=== PATIENT | male | born 1960 | race African-American/Black ===

== ENCOUNTER 2016-09-19 19:46 | Emergency (ER) | payer MEDICARE, OTHER ==
[~2016-09-19] VITALS: Ht 170.2 cm; Wt 70.8 kg
[2016-09-19] MEDS ORDERED: NORCO 10-325 T1 EACH ORAL (20:18)
[2016-09-19] MEDS ORDERED: SOMA350 MG PO (20:18)
[2016-09-19] MEDS ORDERED: AMLODIPINE BESY10 MG ORAL (20:18)
[2016-09-19] MEDS ORDERED: GABAPENTIN300 MG ORAL (20:18)
[2016-09-19] MEDS ORDERED: HYDROCHLOROTHIA25 MG ORAL (20:18)
[2016-09-19] MEDS ORDERED: ASPIR 8181 MG ORAL (20:18)
[2016-09-19] MEDS ORDERED: BACTRIM DS TAB1 EAC1 ORAL (21:13)
--- NOTE | 2016-09-19 21:14 | Emergency Room Report ---
History of Present Illness General Chief Complaint: Male Urogenital Problems Source: Patient Present Illness HPI Is a 56-year-old male with a history of spinal cord surgery. He has neuropathy and hard time walking. He presents with an abscess to the rectal area for the last 3-4 days. He fell is spreading to his scrotal area. No drainage. No fever chills but no nausea no vomiting. Pain is 7/10. Allergies: Coded Allergies: No Known Allergies (Unverified , 11/16/14) Patient History Past Medical History: see triage record, old chart reviewed Past Surgical History: other Pertinent Family History: none Social History: Denies: smoking Immunizations: other Reviewed Nursing Documentation: PMH: Agreed, PSxH: Agreed Nursing Documentation-PMH Hx Hypertension: Yes Review of Systems Eye: Denies: blurred vision, eye pain ENT: Denies: ear pain, nose congestion, throat swelling Respiratory: Denies: cough, shortness of breath Cardiovascular: Denies: chest pain, palpitations Gastrointestinal: Denies: abdominal pain, diarrhea, nausea, vomiting Musculoskeletal: Denies: back pain, joint pain Skin: Denies: rash Neurological: Denies: headache, numbness Endocrine: Denies: increased thirst, increased urine Hematologic/Lymphatic: Denies: easy bruising All Other Systems: negative except mentioned in HPI Physical Exam Vital Signs Date Time Temp Pulse Resp B/P Pulse Ox O2 Delivery O2 Flow Rate FiO2 09/19/16 20:12 98.8 98 18 143/89 95 Room Air vitals unremarkable Sp02 EP Interpretation: reviewed, normal General Appearance: well appearing, no apparent distress, alert Head: normocephalic, atraumatic Eyes: bilateral eye EOMI, bilateral eye PERRL ENT: hearing grossly normal, normal pharynx Neck: full range of motion, supple, no meningismus Respiratory: chest non-tender, lungs clear, normal breath sounds Cardiovascular #1: regular rate, rhythm, no murmur Gastrointestinal: normal bowel sounds, non tender, no mass, no organomegaly, no bruit, non-distended Genitourinary: other - Fluctuant area of 3 cm to the peroneal area of the left Buttock. Central necrotic area with minimal drainage. Musculoskeletal: back normal, other - Patient uses a walker Psychiatric: mood/affect normal Skin: warm/dry Procedures Incision and Drainage Incision and Drainage : Consent: Verbal Site: Buttock Blade Size: 11 I & D Procedure: betadine prep Wound Location: other - Buttock Anesthesia: 1% Lidocaine Volume Anesthetic (ccs): 2 Patient Tolerated: Well Complications: None Progress Area clean with Betadine. Local said at 1% lidocaine. An 81 cm incision and there was copious amount of purulent discharge. Wound irrigated. Patient felt better. We'll discharge home. Medical Decision Making Diagnostic Impression: Primary Impression: Perianal abscess ER Course Patient with perianal abscess. No rectal involvement. We'll discharge home. Last Vital Signs Date Time Temp Pulse Resp B/P Pulse Ox O2 Delivery O2 Flow Rate FiO2 09/19/16 20:12 98.8 98 18 143/89 95 Room Air Status: improved Disposition: HOME, SELF-CARE Condition: Stable Scripts Trimethoprim/Sulfamethoxazole 160/800* (BACTRIM DS TABLET*) 1 Each Tablet 1 TAB ORAL Q12H, #14 TAB 0 Refills Prov: LEIDA MILLER M.D. 09/19/16 Additional Instructions: followup with your DrAnthony in 2 days for recheck. Return if symptoms worsen> LEIDA MILLER M.D. Sep 19, 2016 21:14
[2016-09-19 21:20] VITALS: BP 143/89
== END 2016-09-19 21:20 | disposition home or self-care (01) ==
LOC: EMR 21:15
DX: K61.0 Anal abscess (principal); G62.9 Polyneuropathy, unspecified; I10 Essential (primary) hypertension
CPT/HCPCS: 10060

== ENCOUNTER 2018-01-08 21:33 | Inpatient (IN) | payer MEDICARE, OTHER ==
[~2018-01-08] VITALS: Ht 165.1 cm; Wt 77.1 kg
[~2018-01-08 21:33] MED LIST: AMLODIPINE BESY10 MG ORAL; ASPIR 8181 MG ORAL; BACTRIM DS TAB1 EAC1 ORAL; GABAPENTIN300 MG ORAL; HYDROCHLOROTHIA25 MG ORAL; NORCO 10-325 T1 EACH ORAL; SOMA350 MG PO
[2018-01-08] MEDS ORDERED: Sodium Chloride 500ML 500 ML IV ONE (21:48)
--- NOTE | 2018-01-08 21:50 | Emergency Room Report ---
History of Present Illness General Chief Complaint: Chest Pain Source: Patient Present Illness HPI Patient present with complaints of chest pain right-sided Ongoing for the past one to 2 days denies any pleurisy Patient reports that there is some change with movement and turning to his right Pain is 6 out of 10 heavy and sharp Patient has previous neck surgery and has progressive trigger finger on the right side and neuropathy taking Neurontin Denies any vomiting denies any diarrhea Allergies: Coded Allergies: No Known Allergies (Unverified , 11/16/14) Patient History Past Medical History: see triage record Pertinent Family History: none Reviewed Nursing Documentation: PMH: Agreed; PSxH: Agreed Nursing Documentation-PMH Hx Hypertension: Yes Hx Neurological Problems: Yes Review of Systems All Other Systems: negative except mentioned in HPI Physical Exam Vital Signs Date Time Temp Pulse Resp B/P (MAP) Pulse Ox O2 Delivery O2 Flow Rate FiO2 01/08/18 21:24 98.8 105 18 134/83 97 Room Air Sp02 EP Interpretation: reviewed, normal General Appearance: well appearing, no apparent distress Head: normocephalic, atraumatic Eyes: bilateral eye PERRL, bilateral eye EOMI ENT: hearing grossly normal, TMs + canals normal, uvula midline, other - Poor dentition Neck: full range of motion, supple, no meningismus, no bony tend Respiratory: lungs clear, normal breath sounds, no rhonchi, no respiratory distress, no retraction, no accessory muscle use Cardiovascular #1: normal peripheral pulses, regular rate, rhythm, no edema, no gallop, no JVD, no murmur Gastrointestinal: normal bowel sounds, non tender, soft, no mass, no organomegaly, non-distended, no guarding, no hernia, no pulsatile mass, no rebound Genitourinary: no CVA tenderness Musculoskeletal: normal inspection Neurologic: oriented x3, responsive, market investigator III-XII nml as tested, motor strength/ tone normal, sensory intact Psychiatric: mood/affect normal Skin: normal color, no rash, warm/dry, palpation normal Lymphatic: normal inspection, no adenopathy Medical Decision Making Diagnostic Impression: Primary Impression: ACS (acute coronary syndrome) Additional Impression: Pneumonia ER Course Patient is a fairly complex patient with multiple differential to consideration including but not limited to cardiac cardiopulmonary and vascular emergencies Then the patient's workup x-ray imaging shows bilateral infiltrates White blood cell count is elevated Patient's kidney function is also worsened Patient had blood cultures and lactic acid added broad-spectrum antibiotic initiated and patient admitted for further care Labs Test 01/08/18 22:10 01/08/18 23:00 White Blood Count 20.0 K/UL (4.8-10.8) Red Blood Count 2.83 M/UL (4.70-6.10) Hemoglobin 8.9 G/DL (14.2-18.0) Hematocrit 26.7 % (42.0-52.0) Mean Corpuscular Volume 94 FL (80-99) Mean Corpuscular Hemoglobin 31.3 PG (27.0-31.0) Mean Corpuscular Hemoglobin Concent 33.2 G/DL (32.0-36.0) Red Cell Distribution Width 13.2 % (11.6-14.8) Platelet Count 214 K/UL (150-450) Mean Platelet Volume 5.3 FL (6.5-10.1) Neutrophils (%) (Auto) % (45.0-75.0) Lymphocytes (%) (Auto) % (20.0-45.0) Monocytes (%) (Auto) % (1.0-10.0) Eosinophils (%) (Auto) % (0.0-3.0) Basophils (%) (Auto) % (0.0-2.0) Differential Total Cells Counted 100 Neutrophils % (Manual) 87 % (45-75) Lymphocytes % (Manual) 9 % (20-45) Monocytes % (Manual) 2 % (1-10) Eosinophils % (Manual) 2 % (0-3) Basophils % (Manual) 0 % (0-2) Band Neutrophils 0 % (0-8) Platelet Estimate Adequate Platelet Morphology Normal Sodium Level 142 MMOL/L (136-145) Potassium Level 2.2 MMOL/L (3.5-5.1) Chloride Level 109 MMOL/L (98-107) Carbon Dioxide Level 23 MMOL/L (21-32) Anion Gap 10 mmol/L (5-15) Blood Urea Nitrogen 7 mg/dL (7-18) Creatinine 0.9 MG/DL (0.55-1.30) Estimat Glomerular Filtration Rate > 60 mL/min (>60) Glucose Level 94 MG/DL (74-106) Calcium Level 6.4 MG/DL (8.5-10.1) Total Bilirubin 1.7 MG/DL (0.2-1.0) Direct Bilirubin 1.1 MG/DL (0.0-0.3) Aspartate Amino Transf (AST/SGOT) 97 U/L (15-37) Alanine Aminotransferase (ALT/SGPT) 28 U/L (12-78) Alkaline Phosphatase 129 U/L (46-116) Total Creatine Kinase 75 U/L (26-308) Creatine Kinase MB < 0.5 NG/ML (0.0-3.6) Creatine Kinase MB Relative Index 0.6 Troponin I 0.000 ng/mL (0.000-0.056) Total Protein 7.0 G/DL (6.4-8.2) Albumin 1.2 G/DL (3.4-5.0) Globulin 5.8 g/dL Albumin/Globulin Ratio 0.2 (1.0-2.7) Lipase 251 U/L (73-393) Lactic Acid Level 2.20 mmol/L (0.4-2.0) Rhythm Strip Diag. Results EP Interpretation: yes Rate: 112 Rhythm: no PVC's, no ectopy, other - Sinus tach Chest X-Ray Diagnostic Results Chest X-Ray Diagnostic Results : Chest X-Ray Ordered: Yes # of Views/Limited/Complete: 1 View Indication: Chest Pain EP Interpretation: Yes Interpretation: no effusion, no pneumothorax, other - Bilateral infiltrates Impression: Other - Bilateral infiltrates Electronically Signed by: Elvira Emerson DO Last Vital Signs Date Time Temp Pulse Resp B/P (MAP) Pulse Ox O2 Delivery O2 Flow Rate FiO2 01/08/18 21:24 98.8 105 18 134/83 97 Room Air Status: improved Disposition: ADMITTED INPATIENT Condition: Serious Elvira Emerson DO Jan 08, 2018 21:50
[2018-01-08 22:00] VITALS: BP 119/67
[2018-01-08] MEDS ORDERED: Morphine Sulfate 4mg/ml Inj (IV/IM USE ONLY) IVP ONE (22:00)
[2018-01-08] MEDS ORDERED: DiphenhydrAMINE 50mg/ml Inj IVP ONE (22:00)
--- NOTE | 2018-01-08 22:08 | Diagnostic Imaging Report ---
EXAM: XR Chest, 1 View CLINICAL HISTORY: CP TECHNIQUE: Frontal view of the chest. COMPARISON: No relevant prior studies available. FINDINGS: Lungs: Mild bibasilar atelectasis/infiltrates. Pleural space: Unremarkable. No pneumothorax. Heart: No cardiomegaly. Mediastinum: Large mediastinal contour. Bones/joints: No acute fracture. IMPRESSION: Mild bibasilar atelectasis/infiltrates.
[2018-01-08 22:37] LABS: HEMATOCRIT 26.7 % (42.0-52.0); HEMOGLOBIN 8.9 G/DL (14.2-18.0); MEAN CORPUSCULAR VOLUME 94 FL (80-99); PLATELET COUNT 214 K/UL (150-450); RED BLOOD COUNT 2.83 M/UL (4.70-6.10); RED CELL DISTRIBUTION WIDTH 13.2 % (11.6-14.8)
[2018-01-08] MEDS ORDERED: NS 1000ml 2,200 ML IVLG ONE (22:45)
[2018-01-08 22:51] LABS: ALANINE AMINOTRANSFERASE 28 U/L (12-78); ALBUMIN 1.2 G/DL (3.4-5.0); ALBUMIN/GLOBULIN RATIO 0.2 (1.0-2.7); ALKALINE PHOSPHATASE 129 U/L (46-116); ANION GAP 10 mmol/L (5-15); ASPARTATE AMINO TRANSFERASE 97 U/L (15-37); BILIRUBIN,TOTAL 1.7 MG/DL (0.2-1.0); BLOOD UREA NITROGEN 7 mg/dL (7-18); CALCIUM 6.4 MG/DL (8.5-10.1); CARBON DIOXIDE 23 MMOL/L (21-32); CHLORIDE 109 MMOL/L (98-107); CKMB < 0.5 NG/ML (0.0-3.6); CREATINE KINASE 75 U/L (26-308); CREATININE 0.9 MG/DL (0.55-1.30); SODIUM 142 MMOL/L (136-145)
[2018-01-08 22:53] LABS: BILIRUBIN,DIRECT 1.1 MG/DL (0.0-0.3); POTASSIUM 2.2 MMOL/L (3.5-5.1)
[2018-01-09] VITALS (7 sets, daily range): BP systolic 105–120; BP diastolic 64–77
[2018-01-09] MEDS ORDERED: Albuterol/Ipratropium 3ml neb HHN PRN (02:45)
[2018-01-09] MEDS: Azithromycin 250mg tab ORAL SCH (05:56)
[2018-01-09] MEDS: Heparin 5000 units/ml inj SUBQ SCH ×3 (05:57→21:07)
[2018-01-09] MEDS ORDERED: GABAPENTIN600 MG ORAL (06:46)
[2018-01-09 07:21] LABS: ANION GAP 7 mmol/L (5-15); BLOOD UREA NITROGEN 8 mg/dL (7-18); CARBON DIOXIDE 26 MMOL/L (21-32); CHLORIDE 100 MMOL/L (98-107); CREATININE 1.2 MG/DL (0.55-1.30); POTASSIUM 3.7 MMOL/L (3.5-5.1); SODIUM 133 MMOL/L (136-145)
[2018-01-09 07:35] LABS: HEMOGLOBIN 9.1 G/DL (14.2-18.0); MEAN CORPUSCULAR VOLUME 94 FL (80-99); PLATELET COUNT 213 K/UL (150-450); RED BLOOD COUNT 2.99 M/UL (4.70-6.10); RED CELL DISTRIBUTION WIDTH 13.9 % (11.6-14.8)
[2018-01-09 07:58] LABS: WHITE BLOOD COUNT 26.6 K/UL (4.8-10.8)
--- NOTE | 2018-01-09 08:04 | History & Physical ---
History and Physical History & Physicial HISTORY AND PHYSICAL HPI Patient present with complaints of right-sided chest pain, noted to have bilateral infiltrates Ongoing for the past one to 2 days denies any pleurisy Patient reports that there is some change with movement and turning to his right Pain is 6 out of 10 heavy and sharp Patient has previous neck surgery and has progressive trigger finger on the right side and neuropathy taking Neurontin Denies any vomiting denies any diarrhea Allergies: Coded Allergies: No Known Allergies (Unverified , 11/16/14) Patient History Past Medical History: see triage record Pertinent Family History: none Reviewed Nursing Documentation: PMH: Agreed; PSxH: Agreed Nursing Documentation-PMH Hx Hypertension: Yes Hx Neurological Problems: Yes Review of Systems All Other Systems: negative except mentioned in HPI Physical Exam Vital Signs noted Date Time Temp Pulse Resp B/P (MAP) Pulse Ox O2 Delivery O2 Flow Rate FiO2 01/08/18 21:24 98.8 105 18 134/83 97 Room Air Sp02 EP Interpretation: reviewed, normal General Appearance: well appearing, no apparent distress Head: normocephalic, atraumatic Eyes: bilateral eye PERRL, bilateral eye EOMI ENT: hearing grossly normal, TMs + canals normal, uvula midline, other - Poor dentition Neck: full range of motion, supple, no meningismus, no bony tend Respiratory: lungs clear, normal breath sounds, no rhonchi, no respiratory distress, no retraction, no accessory muscle use Cardiovascular #1: normal peripheral pulses, regular rate, rhythm, no edema, no gallop, no JVD, no murmur Gastrointestinal: normal bowel sounds, non tender, soft, no mass, no organomegaly, non-distended, no guarding, no hernia, no pulsatile mass, no rebound Genitourinary: no CVA tenderness Musculoskeletal: normal inspection Neurologic: oriented x3, responsive, waste salvager III-XII nml as tested, motor strength/ tone normal, sensory intact Psychiatric: mood/affect normal Skin: normal color, no rash, warm/dry, palpation normal Lymphatic: normal inspection, no adenopathy Medical Decision Making Impression: Chest Pain Pneumonia Azotemia Plan: IV Antibiotics Trend Labs Cardiac Consult [employer] labs SQ Heparin O2 PRN Labs Test 01/08/18 22:10 01/08/18 23:00 White Blood Count 20.0 K/UL (4.8-10.8) Red Blood Count 2.83 M/UL (4.70-6.10) Hemoglobin 8.9 G/DL (14.2-18.0) Hematocrit 26.7 % (42.0-52.0) Mean Corpuscular Volume 94 FL (80-99) Mean Corpuscular Hemoglobin 31.3 PG (27.0-31.0) Mean Corpuscular Hemoglobin Concent 33.2 G/DL (32.0-36.0) Red Cell Distribution Width 13.2 % (11.6-14.8) Platelet Count 214 K/UL (150-450) Mean Platelet Volume 5.3 FL (6.5-10.1) Neutrophils (%) (Auto) % (45.0-75.0) Lymphocytes (%) (Auto) % (20.0-45.0) Monocytes (%) (Auto) % (1.0-10.0) Eosinophils (%) (Auto) % (0.0-3.0) Basophils (%) (Auto) % (0.0-2.0) Differential Total Cells Counted 100 Neutrophils % (Manual) 87 % (45-75) Lymphocytes % (Manual) 9 % (20-45) Monocytes % (Manual) 2 % (1-10) Eosinophils % (Manual) 2 % (0-3) Basophils % (Manual) 0 % (0-2) Band Neutrophils 0 % (0-8) Platelet Estimate Adequate Platelet Morphology Normal Sodium Level 142 MMOL/L (136-145) Potassium Level 2.2 MMOL/L (3.5-5.1) Chloride Level 109 MMOL/L (98-107) Carbon Dioxide Level 23 MMOL/L (21-32) Anion Gap 10 mmol/L (5-15) Blood Urea Nitrogen 7 mg/dL (7-18) Creatinine 0.9 MG/DL (0.55-1.30) Estimat Glomerular Filtration Rate > 60 mL/min (>60) Glucose Level 94 MG/DL (74-106) Calcium Level 6.4 MG/DL (8.5-10.1) Total Bilirubin 1.7 MG/DL (0.2-1.0) Direct Bilirubin 1.1 MG/DL (0.0-0.3) Aspartate Amino Transf (AST/SGOT) 97 U/L (15-37) Alanine Aminotransferase (ALT/SGPT) 28 U/L (12-78) Alkaline Phosphatase 129 U/L (46-116) Total Creatine Kinase 75 U/L (26-308) Creatine Kinase MB < 0.5 NG/ML (0.0-3.6) Creatine Kinase MB Relative Index 0.6 Troponin I 0.000 ng/mL (0.000-0.056) Total Protein 7.0 G/DL (6.4-8.2) Albumin 1.2 G/DL (3.4-5.0) Globulin 5.8 g/dL Albumin/Globulin Ratio 0.2 (1.0-2.7) Lipase 251 U/L (73-393) Lactic Acid Level 2.20 mmol/L (0.4-2.0) Rhythm Strip Diag. Results EP Interpretation: yes Rate: 112 Rhythm: no PVC's, no ectopy, other - Sinus tach Chest X-Ray Diagnostic Results Chest X-Ray Diagnostic Results : Chest X-Ray Ordered: Yes # of Views/Limited/Complete: 1 View Indication: Chest Pain EP Interpretation: Yes Interpretation: no effusion, no pneumothorax, other - Bilateral infiltrates Impression: Other - Bilateral infiltrates Electronically Signed by: DO Kostas Hernandez David MD Jan 09, 2018 08:04
[2018-01-09] MEDS: Aspirin Baby 81mg ORAL SCH (08:57)
[2018-01-09] MEDS: cefTRIAXone 1 GM in D5W 55 ML IVPB SCH (08:58)
[2018-01-09] MEDS ORDERED: NS 275ml ONE (15:11)
--- NOTE | 2018-01-09 17:42 | Pulmonology Progress Note ---
Assessment/Plan Assessment/Plan PULMONARY PROGRESS NOTE HPI Patient present with complaints of right-sided chest pain, noted to have bilateral infiltrates Ongoing for the past one to 2 days denies any pleurisy Patient reports that there is some change with movement and turning to his right Pain is 6 out of 10 heavy and sharp Patient has previous neck surgery and has progressive trigger finger on the right side and neuropathy taking Neurontin Denies any vomiting denies any diarrhea Allergies: Coded Allergies: No Known Allergies (Unverified , 11/16/14) Patient History Past Medical History: see triage record Pertinent Family History: none Reviewed Nursing Documentation: PMH: Agreed; PSxH: Agreed Nursing Documentation-PMH Hx Hypertension: Yes Hx Neurological Problems: Yes Review of Systems All Other Systems: negative except mentioned in HPI Physical Exam Vital Signs noted Date Time Temp Pulse Resp B/P (MAP) Pulse Ox O2 Delivery O2 Flow Rate FiO2 01/08/18 21:24 98.8 105 18 134/83 97 Room Air Sp02 EP Interpretation: reviewed, normal General Appearance: well appearing, no apparent distress Head: normocephalic, atraumatic Eyes: bilateral eye PERRL, bilateral eye EOMI ENT: hearing grossly normal, TMs + canals normal, uvula midline, other - Poor dentition Neck: full range of motion, supple, no meningismus, no bony tend Respiratory: lungs clear, normal breath sounds, no rhonchi, no respiratory distress, no retraction, no accessory muscle use Cardiovascular #1: normal peripheral pulses, regular rate, rhythm, no edema, no gallop, no JVD, no murmur Gastrointestinal: normal bowel sounds, non tender, soft, no mass, no organomegaly, non-distended, no guarding, no hernia, no pulsatile mass, no rebound Genitourinary: no CVA tenderness Musculoskeletal: normal inspection Neurologic: oriented x3, responsive, mgmt consultant III-XII nml as tested, motor strength/ tone normal, sensory intact Psychiatric: mood/affect normal Skin: normal color, no rash, warm/dry, palpation normal Lymphatic: normal inspection, no adenopathy Medical Decision Making Impression: Chest Pain Pneumonia Azotemia Plan: IV Antibiotics, add Flagyl and Vanco Trend Labs Cardiac Consult SENIOR 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 [employer] labs SQ Heparin O2 PRN Labs Test 01/08/18 22:10 01/08/18 23:00 White Blood Count 20.0 K/UL (4.8-10.8) Red Blood Count 2.83 M/UL (4.70-6.10) Hemoglobin 8.9 G/DL (14.2-18.0) Hematocrit 26.7 % (42.0-52.0) Mean Corpuscular Volume 94 FL (80-99) Mean Corpuscular Hemoglobin 31.3 PG (27.0-31.0) Mean Corpuscular Hemoglobin Concent 33.2 G/DL (32.0-36.0) Red Cell Distribution Width 13.2 % (11.6-14.8) Platelet Count 214 K/UL (150-450) Mean Platelet Volume 5.3 FL (6.5-10.1) Neutrophils (%) (Auto) % (45.0-75.0) Lymphocytes (%) (Auto) % (20.0-45.0) Monocytes (%) (Auto) % (1.0-10.0) Eosinophils (%) (Auto) % (0.0-3.0) Basophils (%) (Auto) % (0.0-2.0) Differential Total Cells Counted 100 Neutrophils % (Manual) 87 % (45-75) Lymphocytes % (Manual) 9 % (20-45) Monocytes % (Manual) 2 % (1-10) Eosinophils % (Manual) 2 % (0-3) Basophils % (Manual) 0 % (0-2) Band Neutrophils 0 % (0-8) Platelet Estimate Adequate Platelet Morphology Normal Sodium Level 142 MMOL/L (136-145) Potassium Level 2.2 MMOL/L (3.5-5.1) Chloride Level 109 MMOL/L (98-107) Carbon Dioxide Level 23 MMOL/L (21-32) Anion Gap 10 mmol/L (5-15) Blood Urea Nitrogen 7 mg/dL (7-18) Creatinine 0.9 MG/DL (0.55-1.30) Estimat Glomerular Filtration Rate > 60 mL/min (>60) Glucose Level 94 MG/DL (74-106) Calcium Level 6.4 MG/DL (8.5-10.1) Total Bilirubin 1.7 MG/DL (0.2-1.0) Direct Bilirubin 1.1 MG/DL (0.0-0.3) Aspartate Amino Transf (AST/SGOT) 97 U/L (15-37) Alanine Aminotransferase (ALT/SGPT) 28 U/L (12-78) Alkaline Phosphatase 129 U/L (46-116) Total Creatine Kinase 75 U/L (26-308) Creatine Kinase MB < 0.5 NG/ML (0.0-3.6) Creatine Kinase MB Relative Index 0.6 Troponin I 0.000 ng/mL (0.000-0.056) Total Protein 7.0 G/DL (6.4-8.2) Albumin 1.2 G/DL (3.4-5.0) Globulin 5.8 g/dL Albumin/Globulin Ratio 0.2 (1.0-2.7) Lipase 251 U/L (73-393) Lactic Acid Level 2.20 mmol/L (0.4-2.0) Rhythm Strip Diag. Results EP Interpretation: yes Rate: 112 Rhythm: no PVC's, no ectopy, other - Sinus tach Chest X-Ray Diagnostic Results Chest X-Ray Diagnostic Results : Chest X-Ray Ordered: Yes # of Views/Limited/Complete: 1 View Indication: Chest Pain EP Interpretation: Yes Interpretation: no effusion, no pneumothorax, other - Bilateral infiltrates Impression: Other - Bilateral infiltrates Subjective ROS Limited/Unobtainable: No Allergies: Coded Allergies: No Known Allergies (Unverified , 11/16/14) Objective Last 24 Hour Vital Signs Date Time Temp Pulse Resp B/P (MAP) Pulse Ox O2 Delivery O2 Flow Rate FiO2 01/09/18 16:00 97.3 98 20 116/72 (87) 94 01/09/18 16:00 96 01/09/18 12:00 95 01/09/18 12:00 97.7 102 20 108/67 (81) 93 01/09/18 10:00 98 01/09/18 09:00 Nasal Cannula 2.0 01/09/18 08:58 98 114/71 01/09/18 08:00 98.3 98 21 114/71 (85) 95 01/09/18 08:00 95 01/09/18 07:25 94 20 Room Air 21 01/09/18 04:00 95 01/09/18 04:00 98.3 18 22 110/68 (82) 96 01/09/18 01:45 Nasal Cannula 2.0 01/09/18 01:30 98.2 100 15 135/79 100 Room Air 01/09/18 01:30 98.2 18 120/73 99 Room Air 01/09/18 01:20 97.5 94 22 105/64 (78) 97 01/08/18 22:31 98.7 01/08/18 22:00 98.6 18 119/67 97 Room Air 01/08/18 22:00 100 18 Room Air 01/08/18 21:24 98.8 105 18 134/83 97 Room Air Intake and Output 01/08/18 01/09/18 19:00 07:00 Intake Total 2120 ml Balance 2120 ml Intake Oral 120 ml IV Total 2000 ml # Voids 5 # Bowel Movements 1 Laboratory Tests 01/08/18 22:10: White Blood Count 20.0H, Red Blood Count 2.83L, Hemoglobin 8.9L, Hematocrit 26.7L, Mean Corpuscular Volume 94, Mean Corpuscular Hemoglobin 31.3H, Mean Corpuscular Hemoglobin Concent 33.2, Red Cell Distribution Width 13.2, Platelet Count 214, Mean Platelet Volume 5.3L, Neutrophils (%) (Auto) , Lymphocytes (%) ( Auto) , Monocytes (%) (Auto) , Eosinophils (%) (Auto) , Basophils (%) (Auto) , Differential Total Cells Counted 100, Neutrophils % (Manual) 87H, Lymphocytes % (Manual) 9L, Monocytes % (Manual) 2, Eosinophils % (Manual) 2, Basophils % ( Manual) 0, Band Neutrophils 0, Platelet Estimate Adequate, Platelet Morphology Normal, Sodium Level 142, Potassium Level 2.2*L, Chloride Level 109H, Carbon Dioxide Level 23, Anion Gap 10, Blood Urea Nitrogen 7, Creatinine 0.9, Estimat Glomerular Filtration Rate > 60, Glucose Level 94, Calcium Level 6.4L, Total Bilirubin 1.7H, Direct Bilirubin 1.1H, Aspartate Amino Transf (AST/SGOT) 97H, Alanine Aminotransferase (ALT/SGPT) 28, Alkaline Phosphatase 129H, Total Creatine Kinase 75, Creatine Kinase MB < 0.5, Creatine Kinase MB Relative Index 0.6, Troponin I 0.000, Total Protein 7.0, Albumin 1.2L, Globulin 5.8, Albumin/ Globulin Ratio 0.2L, Lipase 251 01/08/18 23:00: Lactic Acid Level 2.20H 01/09/18 06:25: White Blood Count 26.6*H, Red Blood Count 2.99L, Hemoglobin 9.1L, Hematocrit 28.0L, Mean Corpuscular Volume 94, Mean Corpuscular Hemoglobin 30.4, Mean Corpuscular Hemoglobin Concent 32.5, Red Cell Distribution Width 13.9, Platelet Count 213, Mean Platelet Volume 5.7L, Neutrophils (%) (Auto) , Lymphocytes (%) ( Auto) , Monocytes (%) (Auto) , Eosinophils (%) (Auto) , Basophils (%) (Auto) , Differential Total Cells Counted 100, Neutrophils % (Manual) 87H, Lymphocytes % (Manual) 3L, Monocytes % (Manual) 7, Eosinophils % (Manual) 0, Basophils % ( Manual) 0, Band Neutrophils 3, Platelet Estimate Adequate, Platelet Morphology Normal, Sodium Level 133L, Potassium Level 3.7#, Chloride Level 100, Carbon Dioxide Level 26, Anion Gap 7, Blood Urea Nitrogen 8, Creatinine 1.2, Estimat Glomerular Filtration Rate > 60, Glucose Level 91, Calcium Level 8.0#L, Troponin I 0.013, Red Blood Cell Morphology Normal, Magnesium Level 2.0 Current Medications Medications (Trade) Dose Ordered Sig/Josesito Route PRN Reason Start Time Stop Time Status Last Admin Dose Admin Acetaminophen (Tylenol) 650 mg Q4H PRN ORAL Mild Pain/Temp > 100.5 01/09/18 02:30 02/08/18 02:29 01/09/18 05:55 Albuterol/ Ipratropium (Albuterol/ Ipratropium) 3 ml PRN PRN HHN Shortness of Breath 01/09/18 02:45 01/14/18 02:44 Amlodipine Besylate (Norvasc) 10 mg DAILY ORAL 01/09/18 09:00 02/08/18 08:59 01/09/18 08:58 Aspirin (ASA) 81 mg DAILY ORAL 01/09/18 09:00 02/08/18 08:59 01/09/18 08:57 Azithromycin (Zithromax) 500 mg DAILY ORAL 01/09/18 06:00 01/16/18 05:59 01/09/18 05:56 Carisoprodol (Soma) 350 mg THREE TIMES A DAY ORAL 01/09/18 09:00 02/08/18 08:59 01/09/18 13:27 Ceftriaxone Sodium 1 gm/ Dextrose 55 ml @ 110 mls/hr Q24H IVPB 01/09/18 09:00 01/16/18 08:59 01/09/18 08:58 Gabapentin (Neurontin) 600 mg THREE TIMES A DAY ORAL 01/09/18 09:00 02/08/18 08:59 01/09/18 13:26 Heparin Sodium (Porcine) (Heparin 5000 units/ml) 5,000 units EVERY 8 HOURS SUBQ 01/09/18 06:00 02/08/18 05:59 01/09/18 13:33 Ondansetron HCl (Zofran ODT) 4 mg Q6H PRN ORAL Nausea & Vomiting 01/09/18 02:30 02/08/18 02:29 Tamsulosin HCl (Flomax) 0.4 mg BEDTIME ORAL 01/09/18 21:00 02/08/18 20:59 Adriel Kenyon MD Jan 09, 2018 17:42
[2018-01-09] MEDS: Tamsulosin 0.4mg cap ORAL SCH (20:57)
[2018-01-10] VITALS: BP 100/62
[2018-01-10] MEDS ORDERED: metroNIDAZOLE 500mg tab ORAL SCH (00:30)
[2018-01-10 04:00] VITALS: BP 108/71
[2018-01-10] MEDS: Heparin 5000 units/ml inj SUBQ SCH ×3 (06:00→22:00)
[2018-01-10 07:07] LABS: BASOPHILS % (AUTO) 1.9 % (0.0-2.0); EOSINOPHILS % (AUTO) 3.8 % (0.0-3.0); HEMATOCRIT 26.8 % (42.0-52.0); HEMOGLOBIN 8.8 G/DL (14.2-18.0); LYMPHOCYTES % (AUTO) 12.7 % (20.0-45.0); MEAN CORPUSCULAR VOLUME 93 FL (80-99); MONOCYTES % (AUTO) 6.9 % (1.0-10.0); NEUTROPHILS % (AUTO) 74.8 % (45.0-75.0); PLATELET COUNT 200 K/UL (150-450); RED BLOOD COUNT 2.87 M/UL (4.70-6.10); RED CELL DISTRIBUTION WIDTH 13.6 % (11.6-14.8); WHITE BLOOD COUNT 17.3 K/UL (4.8-10.8)
[2018-01-10 07:35] LABS: ANION GAP 7 mmol/L (5-15); BLOOD UREA NITROGEN 8 mg/dL (7-18); CARBON DIOXIDE 24 MMOL/L (21-32); CHLORIDE 100 MMOL/L (98-107); CREATININE 1.2 MG/DL (0.55-1.30); POTASSIUM 3.3 MMOL/L (3.5-5.1); SODIUM 131 MMOL/L (136-145)
[2018-01-10 08:00] VITALS: BP 106/69
[2018-01-10] MEDS: Azithromycin 250mg tab ORAL SCH (08:40)
[2018-01-10] MEDS: Aspirin Baby 81mg ORAL SCH (08:41)
[2018-01-10] MEDS: Prep H Ointment 57gm RECTAL SCH ×2 (08:46→20:45)
[2018-01-10] MEDS: cefTRIAXone 1 GM in D5W 55 ML IVPB SCH (08:46)
[2018-01-10] MEDS ORDERED: Vancomycin 1.5 GM/D5W 250ML IVPB ONE (11:00)
[2018-01-10] MEDS: metroNIDAZOLE 500mg tab ORAL SCH ×2 (11:15→18:17)
[2018-01-10 12:00] VITALS: BP 110/71
[2018-01-10 16:00] VITALS: BP 114/72
[2018-01-10 16:13] LABS: HEMOGLOBIN 8.5 G/DL (14.2-18.0); MEAN CORPUSCULAR VOLUME 92 FL (80-99); PLATELET COUNT 218 K/UL (150-450); RED BLOOD COUNT 2.71 M/UL (4.70-6.10); WHITE BLOOD COUNT 19.4 K/UL (4.8-10.8)
[2018-01-10 16:43] LABS: ANION GAP 6 mmol/L (5-15); BLOOD UREA NITROGEN 9 mg/dL (7-18); CALCIUM 7.7 MG/DL (8.5-10.1); CARBON DIOXIDE 26 MMOL/L (21-32); CHLORIDE 96 MMOL/L (98-107); CREATININE 1.3 MG/DL (0.55-1.30); POTASSIUM 3.3 MMOL/L (3.5-5.1); SODIUM 128 MMOL/L (136-145)
[2018-01-10 16:54] LABS: ALANINE AMINOTRANSFERASE 35 U/L (12-78); ALBUMIN 1.5 G/DL (3.4-5.0); ALBUMIN/GLOBULIN RATIO 0.2 (1.0-2.7); ALKALINE PHOSPHATASE 164 U/L (46-116); AMYLASE 66 U/L (25-115); ASPARTATE AMINO TRANSFERASE 102 U/L (15-37); BILIRUBIN,TOTAL 1.8 MG/DL (0.2-1.0)
[2018-01-10 16:55] LABS: BILIRUBIN,DIRECT 1.2 MG/DL (0.0-0.3)
--- NOTE | 2018-01-10 17:40 | Pulmonology Progress Note ---
Assessment/Plan Assessment/Plan PULMONARY PROGRESS NOTE HPI Patient present with complaints of right-sided chest pain, noted to have bilateral infiltrates Ongoing for the past one to 2 days denies any pleurisy Abdominal distension today Patient has previous neck surgery and has progressive trigger finger on the right side and neuropathy taking Neurontin Denies any vomiting denies any diarrhea Allergies: Coded Allergies: No Known Allergies (Unverified , 11/16/14) Patient History Past Medical History: see triage record Pertinent Family History: none Reviewed Nursing Documentation: PMH: Agreed; PSxH: Agreed Nursing Documentation-PMH Hx Hypertension: Yes Hx Neurological Problems: Yes Review of Systems All Other Systems: negative except mentioned in HPI Physical Exam Vital Signs noted Date Time Temp Pulse Resp B/P (MAP) Pulse Ox O2 Delivery O2 Flow Rate FiO2 01/08/18 21:24 98.8 105 18 134/83 97 Room Air Sp02 EP Interpretation: reviewed, normal General Appearance: well appearing, no apparent distress Head: normocephalic, atraumatic Eyes: bilateral eye PERRL, bilateral eye EOMI ENT: hearing grossly normal, TMs + canals normal, uvula midline, other - Poor dentition Neck: full range of motion, supple, no meningismus, no bony tend Respiratory: lungs clear, normal breath sounds, no rhonchi, no respiratory distress, no retraction, no accessory muscle use Cardiovascular #1: normal peripheral pulses, regular rate, rhythm, no edema, no gallop, no JVD, no murmur Gastrointestinal: normal bowel sounds, non tender, soft, no mass, no organomegaly, non-distended, no guarding, no hernia, no pulsatile mass, no rebound Genitourinary: no CVA tenderness Musculoskeletal: normal inspection Neurologic: oriented x3, responsive, vendor representatives III-XII nml as tested, motor strength/ tone normal, sensory intact Psychiatric: mood/affect normal Skin: normal color, no rash, warm/dry, palpation normal Lymphatic: normal inspection, no adenopathy Medical Decision Making Impression: Chest Pain Pneumonia Azotemia Plan: IV Antibiotics, add Cefgtriaxone, Azithro, Flagyl and Vanco KUB/CXR Fluid frestrict 1.5 L/day IV NS Trend Labs Cardiac Consult [employer] labs SQ Heparin O2 PRN Labs Test 01/08/18 22:10 01/08/18 23:00 White Blood Count 20.0 K/UL (4.8-10.8) Red Blood Count 2.83 M/UL (4.70-6.10) Hemoglobin 8.9 G/DL (14.2-18.0) Hematocrit 26.7 % (42.0-52.0) Mean Corpuscular Volume 94 FL (80-99) Mean Corpuscular Hemoglobin 31.3 PG (27.0-31.0) Mean Corpuscular Hemoglobin Concent 33.2 G/DL (32.0-36.0) Red Cell Distribution Width 13.2 % (11.6-14.8) Platelet Count 214 K/UL (150-450) Mean Platelet Volume 5.3 FL (6.5-10.1) Neutrophils (%) (Auto) % (45.0-75.0) Lymphocytes (%) (Auto) % (20.0-45.0) Monocytes (%) (Auto) % (1.0-10.0) Eosinophils (%) (Auto) % (0.0-3.0) Basophils (%) (Auto) % (0.0-2.0) Differential Total Cells Counted 100 Neutrophils % (Manual) 87 % (45-75) Lymphocytes % (Manual) 9 % (20-45) Monocytes % (Manual) 2 % (1-10) Eosinophils % (Manual) 2 % (0-3) Basophils % (Manual) 0 % (0-2) Band Neutrophils 0 % (0-8) Platelet Estimate Adequate Platelet Morphology Normal Sodium Level 142 MMOL/L (136-145) Potassium Level 2.2 MMOL/L (3.5-5.1) Chloride Level 109 MMOL/L (98-107) Carbon Dioxide Level 23 MMOL/L (21-32) Anion Gap 10 mmol/L (5-15) Blood Urea Nitrogen 7 mg/dL (7-18) Creatinine 0.9 MG/DL (0.55-1.30) Estimat Glomerular Filtration Rate > 60 mL/min (>60) Glucose Level 94 MG/DL (74-106) Calcium Level 6.4 MG/DL (8.5-10.1) Total Bilirubin 1.7 MG/DL (0.2-1.0) Direct Bilirubin 1.1 MG/DL (0.0-0.3) Aspartate Amino Transf (AST/SGOT) 97 U/L (15-37) Alanine Aminotransferase (ALT/SGPT) 28 U/L (12-78) Alkaline Phosphatase 129 U/L (46-116) Total Creatine Kinase 75 U/L (26-308) Creatine Kinase MB < 0.5 NG/ML (0.0-3.6) Creatine Kinase MB Relative Index 0.6 Troponin I 0.000 ng/mL (0.000-0.056) Total Protein 7.0 G/DL (6.4-8.2) Albumin 1.2 G/DL (3.4-5.0) Globulin 5.8 g/dL Albumin/Globulin Ratio 0.2 (1.0-2.7) Lipase 251 U/L (73-393) Lactic Acid Level 2.20 mmol/L (0.4-2.0) Rhythm Strip Diag. Results EP Interpretation: yes Rate: 112 Rhythm: no PVC's, no ectopy, other - Sinus tach Chest X-Ray Diagnostic Results Chest X-Ray Diagnostic Results : Chest X-Ray Ordered: Yes # of Views/Limited/Complete: 1 View Indication: Chest Pain EP Interpretation: Yes Interpretation: no effusion, no pneumothorax, other - Bilateral infiltrates Impression: Other - Bilateral infiltrates Subjective ROS Limited/Unobtainable: No Gastrointestinal/Abdominal: Reports: bloating Allergies: Coded Allergies: No Known Allergies (Unverified , 11/16/14) Objective Last 24 Hour Vital Signs Date Time Temp Pulse Resp B/P (MAP) Pulse Ox O2 Delivery O2 Flow Rate FiO2 01/10/18 16:00 101 01/10/18 16:00 98.0 99 19 114/72 (86) 93 01/10/18 12:00 97.5 94 20 110/71 (84) 98 01/10/18 12:00 94 01/10/18 09:10 97.7 01/10/18 09:00 Nasal Cannula 2.0 01/10/18 08:39 98 106/69 01/10/18 08:00 101 01/10/18 08:00 97.7 98 20 106/69 (81) 99 01/10/18 07:49 95 18 Room Air 21 01/10/18 04:00 97.5 93 20 108/71 (83) 100 01/10/18 04:00 95 01/10/18 00:00 93 01/10/18 00:00 97.8 95 22 100/62 (75) 94 01/09/18 21:23 99 16 Room Air 21 01/09/18 21:00 Nasal Cannula 2.0 01/09/18 20:00 95 01/09/18 20:00 98.4 97 22 114/77 (89) 93 Intake and Output 01/09/18 01/10/18 18:59 06:59 Intake Total 400 ml 400 ml Balance 400 ml 400 ml Intake Oral 400 ml 400 ml # Voids 3 # Bowel Movements 4 2 Microbiology Date/Time Source Procedure Growth Status 01/08/18 23:00 Blood Blood Culture - Preliminary Gram Positive Cocci Resulted 01/08/18 22:45 Blood Blood Culture - Preliminary NO GROWTH AFTER 24 HOURS Resulted 01/10/18 09:15 Stool Clostridium difficile Toxin Assay - Final Complete Laboratory Tests 01/10/18 06:00: White Blood Count 17.3H, Red Blood Count 2.87L, Hemoglobin 8.8L, Hematocrit 26.8L, Mean Corpuscular Volume 93, Mean Corpuscular Hemoglobin 30.5, Mean Corpuscular Hemoglobin Concent 32.7, Red Cell Distribution Width 13.6, Platelet Count 200, Mean Platelet Volume 5.7L, Neutrophils (%) (Auto) 74.8, Lymphocytes ( %) (Auto) 12.7L, Monocytes (%) (Auto) 6.9, Eosinophils (%) (Auto) 3.8H, Basophils (%) (Auto) 1.9, Sodium Level 131L, Potassium Level 3.3L, Chloride Level 100, Carbon Dioxide Level 24, Anion Gap 7, Blood Urea Nitrogen 8, Creatinine 1.2, Estimat Glomerular Filtration Rate > 60, Glucose Level 92, Calcium Level 8.0L, Magnesium Level 1.8, Troponin I 0.000 01/10/18 15:30: Stool Occult Blood [Pending] 01/10/18 16:00: White Blood Count 19.4H, Red Blood Count 2.71L, Hemoglobin 8.5L, Hematocrit 25.0L, Mean Corpuscular Volume 92, Mean Corpuscular Hemoglobin 31.3H, Mean Corpuscular Hemoglobin Concent 33.9, Red Cell Distribution Width 13.0, Platelet Count 218, Mean Platelet Volume 5.6L, Neutrophils (%) (Auto) , Lymphocytes (%) ( Auto) , Monocytes (%) (Auto) , Eosinophils (%) (Auto) , Basophils (%) (Auto) , Sodium Level 128L, Potassium Level 3.3L, Chloride Level 96L, Carbon Dioxide Level 26, Anion Gap 6, Blood Urea Nitrogen 9, Creatinine 1.3, Estimat Glomerular Filtration Rate > 60, Glucose Level 104, Calcium Level 7.7L, Differential Total Cells Counted 100, Neutrophils % (Manual) 74, Lymphocytes % ( Manual) 17L, Monocytes % (Manual) 2, Eosinophils % (Manual) 5H, Basophils % ( Manual) 2, Band Neutrophils 0, Platelet Estimate Adequate, Platelet Morphology Normal, Red Blood Cell Morphology Normal, Hypochromasia 1+, Total Bilirubin 1.8H , Direct Bilirubin 1.2H, Aspartate Amino Transf (AST/SGOT) 102H, Alanine Aminotransferase (ALT/SGPT) 35, Alkaline Phosphatase 164H, Total Protein 8.6H, Albumin 1.5L, Globulin 7.1, Albumin/Globulin Ratio 0.2L, Amylase Level 66 Current Medications Medications (Trade) Dose Ordered Sig/Josesito Route PRN Reason Start Time Stop Time Status Last Admin Dose Admin Acetaminophen (Tylenol) 650 mg Q4H PRN ORAL Mild Pain/Temp > 100.5 01/09/18 02:30 02/08/18 02:29 01/10/18 15:20 Albuterol/ Ipratropium (Albuterol/ Ipratropium) 3 ml PRN PRN HHN Shortness of Breath 01/09/18 02:45 01/14/18 02:44 Amlodipine Besylate (Norvasc) 10 mg DAILY ORAL 01/09/18 09:00 02/08/18 08:59 01/10/18 08:39 Aspirin (ASA) 81 mg DAILY ORAL 01/09/18 09:00 02/08/18 08:59 01/10/18 08:41 Azithromycin (Zithromax) 500 mg DAILY ORAL 01/09/18 06:00 01/16/18 05:59 01/10/18 08:40 Carisoprodol (Soma) 350 mg THREE TIMES A DAY ORAL 01/09/18 09:00 02/08/18 08:59 01/10/18 12:37 Ceftriaxone Sodium 1 gm/ Dextrose 55 ml @ 110 mls/hr Q24H IVPB 01/09/18 09:00 01/16/18 08:59 01/10/18 08:46 Gabapentin (Neurontin) 600 mg THREE TIMES A DAY ORAL 01/09/18 09:00 02/08/18 08:59 01/10/18 12:37 Heparin Sodium (Porcine) (Heparin 5000 units/ml) 5,000 units EVERY 8 HOURS SUBQ 01/09/18 06:00 02/08/18 05:59 01/09/18 21:07 Metronidazole (Flagyl) 500 mg Q8H ORAL 01/10/18 10:00 01/17/18 09:59 01/10/18 11:15 Ondansetron HCl (Zofran ODT) 4 mg Q6H PRN ORAL Nausea & Vomiting 01/09/18 02:30 02/08/18 02:29 Phenyleph/Shark Oil/Glycerin/ Petrol (Preparation H) 1 applic Q12HR RECTAL 01/10/18 09:00 02/09/18 08:59 01/10/18 08:46 Sodium Chloride 1,000 ml @ 70 mls/hr [id number] IV 01/10/18 09:45 02/09/18 09:44 01/10/18 11:16 Tamsulosin HCl (Flomax) 0.4 mg BEDTIME ORAL 01/09/18 21:00 02/08/18 20:59 01/09/18 20:57 Vancomycin HCl (Vanco rx to dose) 1 ea DAILY PRN MISC Per rx protocol 01/10/18 09:45 02/09/18 09:44 Vancomycin HCl 1 gm/Dextrose 275 ml @ 183.708 mls/hr Q12HR@1100,2300 IVPB 01/10/18 23:00 01/15/18 22:59 Adriel Kenyon MD Jan 10, 2018 17:40
[2018-01-10 20:00] VITALS: BP 112/68
[2018-01-10] MEDS ORDERED: D5 1/2NS 1,000 ML IV SCH (20:00)
[2018-01-10] MEDS: Tamsulosin 0.4mg cap ORAL SCH (20:45)
[2018-01-10] MEDS: D5 1/2NS 1,000 ML IV SCH (22:21)
[2018-01-10] MEDS ORDERED: Vancomycin 1gm/D5W 275ml IVPB SCH ×2 (23:00)
[2018-01-11] VITALS: BP 119/72
[2018-01-11] MEDS: metroNIDAZOLE 500mg tab ORAL SCH ×3 (01:14→18:48)
--- NOTE | 2018-01-11 03:00 | Progress Note ---
DATE: 01/09/2018 CARDIOLOGY PROGRESS NOTE Late entry for January 09, 2018. SUBJECTIVE: The patient continues to have right-sided chest pain associated with inspiration and mobility in bed. He notes less cough and shortness of breath. He describes the pain as heavy and sharp. OBJECTIVE: VITAL SIGNS: Blood pressure 134/83, pulse 105, respiratory rate 18, afebrile. Oxygen saturation on room air 97%. Monitor revealed sinus and sinus tachycardia, atrial ectopics, nonsustained. HEENT: Conjunctiva pink. Oropharynx clear. No thrush. NECK: Supple. LUNGS: Coarse breath sounds with rhonchi. HEART: Regular rhythm. Rapid rate. Normal S1, S2 with a fourth heart sound. ABDOMEN: Soft, nontender. EXTREMITIES: With trace edema. Distal pulses palpable. LABORATORY DATA: White count 26.6, hemoglobin 9.1. Sodium 133, potassium 3.7, bicarbonate 26, BUN 8, creatinine 1.2. Magnesium 2.0. Troponin 2.013. IMPRESSION: 1. Pneumonia. 2. Pleuritic chest pain. 3. Prerenal azotemia. 4. Hyponatremia. 5. Leukocytosis. 6. Anemia. 7. Secondary sinus tachycardia. 8. Lactic acidosis. 9. Sepsis due to pneumonia. PLAN: 1. Antimicrobials. 2. Cardiac monitoring. 3. Respiratory hygiene. 4. Bronchodilators. 5. Await culture results. 6. Titrate antihypertensives. 7. Monitor volume status. 8. Maintain adequate hydration with IV fluids. Adriel Guerrero M.D. DR: TOMASA JOB#: [id number] CC:
--- NOTE | 2018-01-11 03:15 | Progress Note ---
DATE: 01/10/2018 CARDIOLOGY PROGRESS NOTE SUBJECTIVE: Still with cough, congestion, chest pain on the right. No shortness of breath. OBJECTIVE: VITAL SIGNS: Blood pressure 112/68, pulse 102, respiratory rate 19. Afebrile. LUNGS: Coarse breath sounds. Scattered rhonchi. Chest wall are tender to palpation. CARDIAC: Regular rhythm and rate. Normal S1, S2 with a fourth heart sound. ABDOMEN: Soft. No edema. LABORATORY DATA: White count remains elevated 19.4, hemoglobin 8.5. Sodium 128. Potassium 3.3. Magnesium is 1.8 this morning. Albumin 1.5. IMPRESSION: 1. Pneumonia. 2. Sepsis. 3. Anemia. 4. Pleuritic chest pain. 5. Secondary sinus tachycardia. 6. Acute on chronic kidney insufficiency. 7. Severe protein-calorie malnutrition. 8. Lactic acidosis recovered. PLAN: 1. Antimicrobials. 2. Bronchodilators. 3. Respiratory hygiene. 4. Follow up culture results. 5. Cardiac monitoring. 6. Maintain adequate hydration. 7. DVT prophylaxis. 8. Remains high risk. 9. Protein supplement initiated. Adriel Guerrero M.D. DR: TOMASA JOB#: [id number] CC:
[2018-01-11 04:00] VITALS: BP 111/63
[2018-01-11] MEDS: Heparin 5000 units/ml inj SUBQ SCH ×3 (05:58→22:00)
[2018-01-11 06:45] LABS: HEMATOCRIT 23.1 % (42.0-52.0); HEMOGLOBIN 7.5 G/DL (14.2-18.0); MEAN CORPUSCULAR VOLUME 92 FL (80-99); PLATELET COUNT 206 K/UL (150-450); RED BLOOD COUNT 2.51 M/UL (4.70-6.10); RED CELL DISTRIBUTION WIDTH 13.3 % (11.6-14.8)
[2018-01-11 07:11] LABS: ANION GAP 9 mmol/L (5-15); BLOOD UREA NITROGEN 8 mg/dL (7-18); CALCIUM 7.8 MG/DL (8.5-10.1); CARBON DIOXIDE 22 MMOL/L (21-32); CHLORIDE 99 MMOL/L (98-107); CREATININE 1.3 MG/DL (0.55-1.30); POTASSIUM 2.9 MMOL/L (3.5-5.1); SODIUM 130 MMOL/L (136-145)
[2018-01-11 07:56] VITALS: BP 104/68
--- NOTE | 2018-01-11 08:10 | General Progress Note ---
Assessment/Plan Assessment/Plan 1. Pneumonia. 2. Sepsis. 3. Anemia. 4. Pleuritic chest pain. 5. hypokalemia. 6. Pulmonary congestion 7. Severe protein-calorie malnutrition. 8. Lactic acidosis recovered. PLAN IV antibiotics respiratory care ID evaluation check cultures transfuse gi evaluation ? gi bleeding protonix monitor clinically impression, plan, and exam edited and reviewed in detail care discussed with RN Subjective Allergies: Coded Allergies: No Known Allergies (Unverified , 11/16/14) Subjective care noted and reviewed some congestion noted Objective Last 24 Hour Vital Signs Date Time Temp Pulse Resp B/P (MAP) Pulse Ox O2 Delivery O2 Flow Rate FiO2 01/11/18 07:56 97.3 98 20 104/68 (80) 95 01/11/18 04:00 96 01/11/18 04:00 98.0 101 20 111/63 (79) 96 01/11/18 00:00 97 01/11/18 00:00 98.2 97 20 119/72 (88) 95 01/10/18 21:00 Nasal Cannula 2.0 01/10/18 20:23 101 18 Room Air 21 01/10/18 20:00 100 01/10/18 20:00 98.3 102 19 112/68 (83) 96 01/10/18 16:00 101 01/10/18 16:00 98.0 99 19 114/72 (86) 93 01/10/18 12:00 97.5 94 20 110/71 (84) 98 01/10/18 12:00 94 01/10/18 09:10 97.7 01/10/18 09:00 Nasal Cannula 2.0 01/10/18 08:39 98 106/69 Intake and Output 01/10/18 01/11/18 19:00 07:00 Intake Total 927.416 ml Balance 927.416 ml IV Total 927.416 ml # Voids 2 # Bowel Movements 4 Laboratory Tests 01/10/18 15:30: Stool Occult Blood [Pending] 01/10/18 16:00: White Blood Count 19.4H, Red Blood Count 2.71L, Hemoglobin 8.5L, Hematocrit 25.0L, Mean Corpuscular Volume 92, Mean Corpuscular Hemoglobin 31.3H, Mean Corpuscular Hemoglobin Concent 33.9, Red Cell Distribution Width 13.0, Platelet Count 218, Mean Platelet Volume 5.6L, Neutrophils (%) (Auto) , Lymphocytes (%) ( Auto) , Monocytes (%) (Auto) , Eosinophils (%) (Auto) , Basophils (%) (Auto) , Differential Total Cells Counted 100, Neutrophils % (Manual) 74, Lymphocytes % ( Manual) 17L, Monocytes % (Manual) 2, Eosinophils % (Manual) 5H, Basophils % ( Manual) 2, Band Neutrophils 0, Platelet Estimate Adequate, Platelet Morphology Normal, Red Blood Cell Morphology Normal, Hypochromasia 1+, Sodium Level 128L, Potassium Level 3.3L, Chloride Level 96L, Carbon Dioxide Level 26, Anion Gap 6, Blood Urea Nitrogen 9, Creatinine 1.3, Estimat Glomerular Filtration Rate > 60, Glucose Level 104, Calcium Level 7.7L, Total Bilirubin 1.8H, Direct Bilirubin 1.2H, Aspartate Amino Transf (AST/SGOT) 102H, Alanine Aminotransferase (ALT/SGPT ) 35, Alkaline Phosphatase 164H, Total Protein 8.6H, Albumin 1.5L, Globulin 7.1 , Albumin/Globulin Ratio 0.2L, Amylase Level 66 01/11/18 05:40: White Blood Count 15.0H, Red Blood Count 2.51L, Hemoglobin 7.5L, Hematocrit 23.1L, Mean Corpuscular Volume 92, Mean Corpuscular Hemoglobin 30.0, Mean Corpuscular Hemoglobin Concent 32.5, Red Cell Distribution Width 13.3, Platelet Count 206, Mean Platelet Volume 5.7L, Neutrophils (%) (Auto) , Lymphocytes (%) ( Auto) , Monocytes (%) (Auto) , Eosinophils (%) (Auto) , Basophils (%) (Auto) , Neutrophils % (Manual) [Pending], Lymphocytes % (Manual) [Pending], Platelet Estimate [Pending], Platelet Morphology [Pending], Sodium Level 130L, Potassium Level 2.9L, Chloride Level 99, Carbon Dioxide Level 22, Anion Gap 9, Blood Urea Nitrogen 8, Creatinine 1.3, Estimat Glomerular Filtration Rate > 60, Glucose Level 111H, Calcium Level 7.8L, Magnesium Level 1.9, Troponin I 0.008 Height (Feet): 5 Height (Inches): 8.00 Weight (Pounds): 168 Objective WDWN frail, weak reduced breath sounds bilaterally with some rhonchi [id number] without MRG NABS nontender no HSM no CC; reduced ROM nonfocal Warren Cardoza MD Jan 11, 2018 08:10
[2018-01-11] MEDS: Azithromycin 250mg tab ORAL SCH (08:42)
[2018-01-11] MEDS: Aspirin Baby 81mg ORAL SCH (08:42)
[2018-01-11] MEDS: Prep H Ointment 57gm RECTAL SCH ×2 (08:44→20:30)
[2018-01-11] MEDS: cefTRIAXone 1 GM in D5W 55 ML IVPB SCH (08:45)
--- NOTE | 2018-01-11 10:12 | General Progress Note ---
Assessment/Plan Assessment/Plan Assessment - Excess EtOH use - EtOH hepatitis - Anemia - Diarrhea, C Diff (-) - Chest pain Recommendations - clear liquids - check stool Cx - monitor labs - check coags and AFP - abd U/s - EGD/Colon once cleared from cardiac and pulm standpoint Thank you Kishan Prado MD Subjective Allergies: Coded Allergies: No Known Allergies (Unverified , 11/16/14) Objective Last 24 Hour Vital Signs Date Time Temp Pulse Resp B/P (MAP) Pulse Ox O2 Delivery O2 Flow Rate FiO2 01/11/18 09:00 Nasal Cannula 2.0 01/11/18 09:00 Nasal Cannula 2.0 01/11/18 08:44 98 104/68 01/11/18 08:00 100 01/11/18 07:56 97.3 98 20 104/68 (80) 95 01/11/18 04:00 96 01/11/18 04:00 98.0 101 20 111/63 (79) 96 01/11/18 00:00 97 01/11/18 00:00 98.2 97 20 119/72 (88) 95 01/10/18 21:00 Nasal Cannula 2.0 01/10/18 20:23 101 18 Room Air 21 01/10/18 20:00 100 01/10/18 20:00 98.3 102 19 112/68 (83) 96 01/10/18 16:00 101 01/10/18 16:00 98.0 99 19 114/72 (86) 93 01/10/18 12:00 97.5 94 20 110/71 (84) 98 01/10/18 12:00 94 Intake and Output 01/10/18 01/11/18 19:00 07:00 Intake Total 927.416 ml Balance 927.416 ml IV Total 927.416 ml # Voids 2 # Bowel Movements 4 Laboratory Tests 01/10/18 15:30: Stool Occult Blood Positive 01/10/18 16:00: White Blood Count 19.4H, Red Blood Count 2.71L, Hemoglobin 8.5L, Hematocrit 25.0L, Mean Corpuscular Volume 92, Mean Corpuscular Hemoglobin 31.3H, Mean Corpuscular Hemoglobin Concent 33.9, Red Cell Distribution Width 13.0, Platelet Count 218, Mean Platelet Volume 5.6L, Neutrophils (%) (Auto) , Lymphocytes (%) ( Auto) , Monocytes (%) (Auto) , Eosinophils (%) (Auto) , Basophils (%) (Auto) , Differential Total Cells Counted 100, Neutrophils % (Manual) 74, Lymphocytes % ( Manual) 17L, Monocytes % (Manual) 2, Eosinophils % (Manual) 5H, Basophils % ( Manual) 2, Band Neutrophils 0, Platelet Estimate Adequate, Platelet Morphology Normal, Red Blood Cell Morphology Normal, Hypochromasia 1+, Sodium Level 128L, Potassium Level 3.3L, Chloride Level 96L, Carbon Dioxide Level 26, Anion Gap 6, Blood Urea Nitrogen 9, Creatinine 1.3, Estimat Glomerular Filtration Rate > 60, Glucose Level 104, Calcium Level 7.7L, Total Bilirubin 1.8H, Direct Bilirubin 1.2H, Aspartate Amino Transf (AST/SGOT) 102H, Alanine Aminotransferase (ALT/SGPT ) 35, Alkaline Phosphatase 164H, Total Protein 8.6H, Albumin 1.5L, Globulin 7.1 , Albumin/Globulin Ratio 0.2L, Amylase Level 66 01/11/18 05:40: White Blood Count 15.0H, Red Blood Count 2.51L, Hemoglobin 7.5L, Hematocrit 23.1L, Mean Corpuscular Volume 92, Mean Corpuscular Hemoglobin 30.0, Mean Corpuscular Hemoglobin Concent 32.5, Red Cell Distribution Width 13.3, Platelet Count 206, Mean Platelet Volume 5.7L, Neutrophils (%) (Auto) , Lymphocytes (%) ( Auto) , Monocytes (%) (Auto) , Eosinophils (%) (Auto) , Basophils (%) (Auto) , Neutrophils % (Manual) [Pending], Lymphocytes % (Manual) [Pending], Platelet Estimate [Pending], Platelet Morphology [Pending], Sodium Level 130L, Potassium Level 2.9L, Chloride Level 99, Carbon Dioxide Level 22, Anion Gap 9, Blood Urea Nitrogen 8, Creatinine 1.3, Estimat Glomerular Filtration Rate > 60, Glucose Level 111H, Calcium Level 7.8L, Magnesium Level 1.9, Troponin I 0.008 Height (Feet): 5 Height (Inches): 8.00 Weight (Pounds): 168 Nadia Prado MD Jan 11, 2018 10:12
[2018-01-11] MEDS: D5 1/2NS 1,000 ML IV SCH (10:21)
[2018-01-11] MEDS ORDERED: Tubing IV Secondary IV ONE ×2 (11:48→14:42)
[2018-01-11] MEDS ORDERED: D5 1/2NS 1000ml IV ONE (11:48)
[2018-01-11 12:00] VITALS: BP 113/77
--- NOTE | 2018-01-11 12:06 | Diagnostic Imaging Report ---
Indication: Abdominal distention and pain Technique: Grayscale and duplex Doppler imaging of the abdomen performed. Comparison: None Findings: Liver is echogenic consistent with fatty infiltration. There is a surface nodularity and trace ascites. Doppler interrogation of the main portal vein shows unusual waveform with pulsatility and some hepatofugal flow is noted. Findings suggest portal hypertension. Liver is also enlarged measuring 22 cm. The right kidney is unremarkable. There is a cyst in the upper pole measuring 1.7 cm. Gallbladder is distended. There are are evidence of gallstones. Cholesterolosis of the gallbladder wall is also fairly extensive. Ringdown aliasing artifact noted multiple locations. The common bile duct is normal in caliber measuring 3 mm. There is no intrahepatic biliary ductal dilatation identified. Urinary bladder is moderately distended with the 450 cc volume. Prostate volume is 70 cc which is prominent. There is a poorly imaged cyst in the lower pole the left kidney measuring 1.3 cm. Pancreas and aorta are not seen well. IMPRESSION: Suspicion of chronic liver disease with nodularity of the liver surface, fatty infiltration and enlargement of the liver. Doppler evaluation of the portal vein suggests portal hypertension. Spleen is not enlarged. Mild ascites noted. Gallbladder cholesterolosis and suspected the intraluminal stones. Distended urinary bladder. Prostate enlargement. Bilateral renal cysts.
--- NOTE | 2018-01-11 12:38 | Diagnostic Imaging Report ---
Indication: Dyspnea Comparison: 01/08/2018 A single view chest radiograph was obtained. Findings: Mild basal atelectasis demonstrated. Heart size is within normal limits. Similar findings on the prior occasion. IMPRESSION: Mild basal atelectasis
--- NOTE | 2018-01-11 12:39 | Diagnostic Imaging Report ---
Indication: Abdominal pain Comparison: None Single view of the abdomen obtained Findings: There is relative absence of bowel gas. Degenerative changes of the lower lumbar spine noted. IMPRESSION: Relatively nondiagnostic study due to absence of bowel gas
[2018-01-11] MEDS: NS w/KCl 40mEq 1,000 ML IV SCH (14:21)
[2018-01-11 16:00] VITALS: BP 112/69
[2018-01-11 20:00] VITALS: BP 104/71
--- NOTE | 2018-01-11 20:15 | Consultation ---
DATE OF CONSULTATION: 01/11/2018 NOTE: "POOR AUDIO QUALITY/MULTIPLE AUDIO CUTS" INFECTIOUS DISEASES CONSULTATION CONSULTING PHYSICIAN: Raimundo Thomas M.D. REFERRING PHYSICIAN: Warren Cardoza M.D. REASON FOR CONSULTATION: Pneumonia. HISTORY OF PRESENTING ILLNESS: This is a 57-year-old gentleman with history of hypertension, who came in with chest pain along with shortness of breath on walking. He also had some diarrhea. He was found to have pneumonia and an Infectious Diseases consultation has been obtained for antibiotics. PAST MEDICAL HISTORY: History of hypertension. SOCIAL HISTORY: He is a smoker. He drinks alcohol. No history of drug use. FAMILY HISTORY: Positive for renal failure, on dialysis. REVIEW OF SYSTEMS: RESPIRATORY: He has fever and chills. He denies any cough. He has shortness of breath. He has pleuritic chest pain. CARDIAC: No cardiac type of chest pain. No palpitations. No dizziness. No syncope. GASTROINTESTINAL: No nausea. No vomiting. No abdominal pain. He does complain of diarrhea. MEDICATIONS: As an inpatient, he is on Protonix, IV vancomycin, Flagyl, Preparation H, Flomax, amlodipine, aspirin, ceftriaxone, Soma, gabapentin, subcutaneous heparin, azithromycin, albuterol, Zofran, Tylenol. ALLERGIES: No known drug allergies. PHYSICAL EXAMINATION: VITAL SIGNS: Temperature of 97.3. T-max of 98.3. Pulse of 98, respiratory rate 20, blood pressure 104/68 HEENT : SOM neck : supple, no adenopathy CVS : normal S1, S2, no murmur lungs : clear abdomen : soft, non tender EXTREMITIES: no cyanosis, no clubbing, no edema. LABORATORY AND DIAGNOSTIC DATA: White count of 20 on 01/08/2018. White count of 26 on 01/09/2018. White count of 15 on Platelet count of 206,000. Sodium 130, potassium 2.9, chloride 99, bicarbonate 22, BUN 8, creatinine 1.3, glucose 111, calcium 7.8, total bilirubin 1.8, total direct bilirubin 1.2, AST 102, ALT 35, alkaline phosphatase 164, total protein 8.6, albumin 1.5. Amylase of 66, lipase of 251. Stool for C. difficile is negative. Blood cultures from 01/08/2018, growing coagulase-negative Staph. ASSESSMENT: 1. A 57-year-old gentleman who comes in with fever and shortness of breath on walking and was found to have bibasal pneumonia. It would be concerned regarding aspiration pneumonia. 2. Leukocytosis is improving. 3. Positive blood cultures with coagulase-negative Staph is likely a contaminant. PLAN: 1. Continue ceftriaxone and Flagyl. 2. Discontinue vancomycin. 3. Continue azithromycin. 4. We will order sputum for Gram stain and culture. 5. We will order for serum Legionella antibody and Mycoplasma serology. 6. will follow up cultures and adjust antibiotics accordingly. I would like to thank Dr. Cardoza for this consultation. Raimundo Thomas M.D. DRPita Segovia JOB#: [id number] CC: Warren Cardoza M.D.; Fax#: [phone] [facility]
[2018-01-11] MEDS: Tamsulosin 0.4mg cap ORAL SCH (20:30)
--- NOTE | 2018-01-11 20:30 | Consultation ---
DATE OF CONSULTATION: 01/11/2018 GASTROLOGY CONSULTATION CHIEF COMPLAINT: I was asked to see this patient by Dr. Warren Cardoza for evaluation of diarrhea, rectal bleeding, and liver disease. HISTORY OF PRESENT ILLNESS: The patient is a pleasant 57-year-old, man, who is admitted to the hospital for right-sided chest pain. The patient was noted to have some bilateral infiltrates and was admitted to the hospital. He is undergoing workup, but during the workup, he also has complained of a five-day history of diarrhea with some bits of blood in the stools. He also was noted to have a distended abdomen and some abnormal liver tests, so the ultrasound of the abdomen has been ordered. The patient admits to drinking about a [id number] for about 30 or more years. He has never been diagnosed of liver disease or cirrhosis. He has never had an endoscopy or colonoscopy or gastrointestinal bleeding in the past. He has no contacts at home with diarrhea and has had no recent travels. PAST MEDICAL HISTORY: History of right neck bone fusion surgery with some right-sided body weakness due to injury to the nervous system in that area and history of neuropathy. MEDICATIONS: See the chart list for details. FAMILY HISTORY: Positive for renal disease, on hemodialysis as well as a brother with cirrhosis due to alcoholism. SOCIAL HISTORY: The patient is single. He smokes cigarettes and also he drinks about [id number] daily. REVIEW OF SYSTEMS: Otherwise negative. PHYSICAL EXAMINATION: GENERAL: A pleasant man, seen in his room. HEENT: Normocephalic and atraumatic. Sclerae anicteric. Oropharynx clear. NECK: Supple. CHEST: Reveals scattered rhonchi. CARDIOVASCULAR: Revealed a regular rate. ABDOMEN: Mildly distended with a slight fluid wave. There is no tenderness. EXTREMITIES: Revealed trace edema bilaterally. NEUROLOGIC: Deferred. LABORATORY DATA: Noted. ASSESSMENT: This patient presents with diarrhea, which will require a standard workup with stool cultures. He is already negative for Clostridium difficile. He had some degree of blood in the stools, which may be hemorrhoidal in nature. However, he has never had endoscopy or colonoscopy as he has significant anemia and therefore, full workup was warranted. This can be done once the patient is stabilized. In addition, the patient seems to have some degree of liver disease with respect to his abnormal liver tests and his severe drinking history. He does have some degree of alcoholic hepatitis based on his enzymes, but this is mild at this time and can be treated conservatively. He was encouraged to stop drinking alcohol. His hepatitis B and C markers should be checked. RECOMMENDATIONS: Per above discussion and per orders written in the chart. Thank you for asking me to participate in the care of this patient. Nadia Prado M.D. DR: SANCHEZ JOB#: [id number] CC:
--- NOTE | 2018-01-11 22:15 | Consultation ---
DATE OF CONSULTATION: 01/11/2018 DATE OF ADMISSION: 01/08/2018 CONSULTING PHYSICIAN: Ashok Saavedra M.D. REFERRING PHYSICIAN: Warren Cardoza M.D. REASON FOR CONSULTATION: 1. Acute kidney injury. 2. Hypokalemia. 3. Hyponatremia. HISTORY OF PRESENT ILLNESS: The patient is a pleasant 57-year-old gentleman who was admitted 2 days prior for further evaluation and care of pleuritic right-sided chest pain, found to have bilateral infiltrates. The patient was admitted for further evaluation and management of pneumonia when it was noted that his potassium was low at 2.8, sodium currently at 130, and his creatinine is at 1.3. The patient states that he has not had any renal dysfunction in the past, but his brother and [id number] along with his mother have all been on dialysis in the past. ALLERGIES: No known drug allergies. PAST MEDICAL HISTORY: 1. Hypertension. 2. Neuropathy. 3. Chronic pain. FAMILY HISTORY: 1. Hypertension. 2. Diabetes. 3. Renal failure due to hypertension. PAST SURGICAL HISTORY: Noncontributory. LABORATORY DATA: Labs dated January 11, 2018, sodium 130, potassium 2.9, creatinine 1.3, bicarbonate 22. Hemoglobin 7.5, white cell count 15, platelet count 206,000. PHYSICAL EXAMINATION: VITAL SIGNS: Blood pressure 104/68, pulse 98, temperature 97.3. GENERAL: The patient is awake, alert, not otherwise in distress, having lunch. HEENT: Extraocular muscles intact. No lymphadenopathy noted. Oropharyngeal mucosa is clear, dry, and intact. Missing teeth noted. PULMONARY: Upper airway rhonchi without rales. ABDOMINAL: Nondistended, nontender. EXTREMITIES: No edema. ASSESSMENT AND PLAN: 1. Hyponatremia. At this time, most likely secondary to being on hypertonic solution while being on hydrochlorothiazide in combination with possibility of SIADH from underlying pneumonia. At this time to correct hyponatremia, IV fluids will be changed to isotonic solution. HCTZ has been discontinued and pneumonia is being treated. 2. Hypokalemia. At this time, HCTZ has been discontinued and potassium is being replaced. 3. Acute kidney injury versus CKD. Creatinine currently 1.3. The patient is relatively hypotensive and volume depleted. Continue hemodynamic stability and IV fluids have been adjusted. 4. Sepsis secondary to pneumonia. Management per Pulmonary/Critical Care. Let me take this opportunity to thank Dr. Cardoza. Ashok Saavedra MD DR: Fortunato JOB#: [id number] CC:
[2018-01-12] VITALS: BP 112/71
[2018-01-12] MEDS: metroNIDAZOLE 500mg tab ORAL SCH ×3 (01:31→17:16)
[2018-01-12] MEDS: NS w/KCl 40mEq 1,000 ML IV SCH ×2 (02:46→17:16)
[2018-01-12 04:00] VITALS: BP 110/69
[2018-01-12] MEDS: Heparin 5000 units/ml inj SUBQ SCH ×3 (05:31→22:00)
[2018-01-12 07:43] LABS: BASOPHILS % (AUTO) 1.3 % (0.0-2.0); EOSINOPHILS % (AUTO) 3.3 % (0.0-3.0); HEMATOCRIT 26.5 % (42.0-52.0); HEMOGLOBIN 8.7 G/DL (14.2-18.0); MEAN CORPUSCULAR VOLUME 91 FL (80-99); MONOCYTES % (AUTO) 9.5 % (1.0-10.0); NEUTROPHILS % (AUTO) 74.9 % (45.0-75.0); PLATELET COUNT 209 K/UL (150-450); RED BLOOD COUNT 2.91 M/UL (4.70-6.10); RED CELL DISTRIBUTION WIDTH 13.8 % (11.6-14.8); WHITE BLOOD COUNT 14.5 K/UL (4.8-10.8)
[2018-01-12 07:55] LABS: INR 1.7 (0.9-1.1)
[2018-01-12 08:09] VITALS: BP 106/84
[2018-01-12] MEDS: Aspirin Baby 81mg ORAL SCH ×2 (08:12→08:41)
[2018-01-12 08:14] LABS: % IRON SATURATION 62 % (15-50); IRON 71 ug/dL (50-175); TOTAL IRON BINDING CAPACITY 114 ug/dL (250-450)
[2018-01-12 08:19] LABS: ALANINE AMINOTRANSFERASE 30 U/L (12-78); ALBUMIN 1.5 G/DL (3.4-5.0); ALBUMIN/GLOBULIN RATIO 0.2 (1.0-2.7); ALKALINE PHOSPHATASE 140 U/L (46-116); ANION GAP 8 mmol/L (5-15); ASPARTATE AMINO TRANSFERASE 98 U/L (15-37); BILIRUBIN,TOTAL 2.4 MG/DL (0.2-1.0); BLOOD UREA NITROGEN 11 mg/dL (7-18); CALCIUM 8.2 MG/DL (8.5-10.1); CARBON DIOXIDE 22 MMOL/L (21-32); CHLORIDE 101 MMOL/L (98-107); CREATININE 1.6 MG/DL (0.55-1.30); POTASSIUM 4.5 MMOL/L (3.5-5.1); SODIUM 131 MMOL/L (136-145)
[2018-01-12 08:21] LABS: BILIRUBIN,DIRECT 1.5 MG/DL (0.0-0.3)
[2018-01-12] MEDS: cefTRIAXone 1 GM in D5W 55 ML IVPB SCH (08:27)
--- NOTE | 2018-01-12 08:38 | Nephrology Progress Note ---
Assessment/Plan Assessment/Plan A/P 1) BENJAMÍN- due to volume depletion and urinary retention - bladder > 500 ml, Cr 1.6 - In/Out thakkar. Bladder scan q 8hrs - IVFs 2) Hyponatremia- Na up to 131 - continue NS 3) Hypokalemia- corrected 4) PNA- Abx Subjective Date patient seen: Jan 12, 2018 Time patient seen: 08:35 ROS Limited/Unobtainable: No Allergies: Coded Allergies: No Known Allergies (Unverified , 11/16/14) All Systems: reviewed and negative except above Subjective Patient in no distress Objective Last 24 Hour Vital Signs Date Time Temp Pulse Resp B/P (MAP) Pulse Ox O2 Delivery O2 Flow Rate FiO2 01/12/18 08:09 97.1 97 20 106/84 (91) 97 01/12/18 04:00 100 01/12/18 04:00 97.5 101 23 110/69 (83) 94 01/12/18 01:31 100 20 Room Air 21 01/12/18 00:00 104 01/12/18 00:00 97.7 104 23 112/71 (85) 94 01/11/18 21:00 Nasal Cannula 2.0 01/11/18 20:00 104 01/11/18 20:00 97.7 108 23 104/71 (82) 95 01/11/18 16:00 101 01/11/18 16:00 97.1 103 20 112/69 (83) 95 01/11/18 12:00 97.1 106 20 113/77 (89) 95 01/11/18 12:00 102 01/11/18 09:00 Nasal Cannula 2.0 01/11/18 09:00 Nasal Cannula 2.0 01/11/18 08:44 98 104/68 Intake and Output 01/11/18 01/12/18 19:00 07:00 Intake Total 240 ml 749 ml Balance 240 ml 749 ml Intake Oral 240 ml IV Total 749 ml # Voids 1 3 # Bowel Movements 4 1 Laboratory Tests 01/12/18 06:40: White Blood Count 14.5H, Red Blood Count 2.91L, Hemoglobin 8.7L, Hematocrit 26.5L, Mean Corpuscular Volume 91, Mean Corpuscular Hemoglobin 29.8, Mean Corpuscular Hemoglobin Concent 32.7, Red Cell Distribution Width 13.8, Platelet Count 209, Mean Platelet Volume 5.9L, Neutrophils (%) (Auto) 74.9, Lymphocytes ( %) (Auto) 11.0L, Monocytes (%) (Auto) 9.5, Eosinophils (%) (Auto) 3.3H, Basophils (%) (Auto) 1.3, Prothrombin Time 17.4H, Prothromb Time International Ratio 1.7H, Sodium Level 131L, Potassium Level 4.5#, Chloride Level 101, Carbon Dioxide Level 22, Anion Gap 8, Blood Urea Nitrogen 11, Creatinine 1.6H, Estimat Glomerular Filtration Rate 54.1, Glucose Level 99, Calcium Level 8.2L, Magnesium Level 1.8, Iron Level 71, Total Iron Binding Capacity 114L, Percent Iron Saturation 62H, Unsaturated Iron Binding 43L, Total Bilirubin 2.4H, Direct Bilirubin 1.5H, Aspartate Amino Transf (AST/SGOT) 98H, Alanine Aminotransferase (ALT/SGPT) 30, Alkaline Phosphatase 140H, Troponin I [Pending], Total Protein 8.2, Albumin 1.5L, Globulin 6.7, Albumin/Globulin Ratio 0.2L, Alpha Fetoprotein [Pending], Hepatitis A IgM Antibody [Pending], Hepatitis B Surface Antigen [ Pending], Hepatitis B Core IgM Antibody [Pending], Hepatitis C Antibody [Pending ] Height (Feet): 5 Height (Inches): 8.00 Weight (Pounds): 168 General Appearance: no apparent distress, alert EENT: normal ENT inspection Neck: normal alignment, supple Cardiovascular: normal rate, regular rhythm Respiratory/Chest: lungs clear, normal breath sounds Abdomen: non tender, soft Edema: no edema noted Arm (L), no edema noted Arm (R), no edema noted Leg (L), no edema noted Leg (R), no edema noted Pedal (L), no edema noted Pedal (R), no edema noted Generalized Ashok Saavedra MD Jan 12, 2018 08:38
[2018-01-12] MEDS: Azithromycin 250mg tab ORAL SCH (08:41)
[2018-01-12] MEDS: Prep H Ointment 57gm RECTAL SCH ×2 (09:05→20:34)
--- NOTE | 2018-01-12 11:38 | General Progress Note ---
Assessment/Plan Assessment/Plan 1. Pneumonia. 2. Sepsis. 3. Anemia. 4. Pleuritic chest pain. 5. hypokalemia. 6. Pulmonary congestion 7. Severe protein-calorie malnutrition. 8. Lactic acidosis recovered. 9. urinary retention, likely BPH 10. cirrhosis with portal hypertension PLAN IV antibiotics per ID; noted respiratory care ID evaluation appreciated check cultures, final transfused gi evaluation noted protonix monitor clinically abstinence discussed short term snf; hope in am impression, plan, and exam edited and reviewed in detail care discussed with RN Subjective Allergies: Coded Allergies: No Known Allergies (Unverified , 11/16/14) Subjective care noted and reviewed improved congestion noted Objective Last 24 Hour Vital Signs Date Time Temp Pulse Resp B/P (MAP) Pulse Ox O2 Delivery O2 Flow Rate FiO2 01/12/18 09:47 Nasal Cannula 2.0 01/12/18 09:11 97.1 01/12/18 08:41 97 111/84 01/12/18 08:09 97.1 97 20 106/84 (91) 97 01/12/18 04:00 100 01/12/18 04:00 97.5 101 23 110/69 (83) 94 01/12/18 01:31 100 20 Room Air 21 01/12/18 00:00 104 01/12/18 00:00 97.7 104 23 112/71 (85) 94 01/11/18 21:00 Nasal Cannula 2.0 01/11/18 20:00 104 01/11/18 20:00 97.7 108 23 104/71 (82) 95 01/11/18 16:00 101 01/11/18 16:00 97.1 103 20 112/69 (83) 95 01/11/18 12:00 97.1 106 20 113/77 (89) 95 01/11/18 12:00 102 Intake and Output 01/11/18 01/12/18 19:00 07:00 Intake Total 240 ml 749 ml Balance 240 ml 749 ml Intake Oral 240 ml IV Total 749 ml # Voids 1 3 # Bowel Movements 4 1 Laboratory Tests 01/12/18 06:40: White Blood Count 14.5H, Red Blood Count 2.91L, Hemoglobin 8.7L, Hematocrit 26.5L, Mean Corpuscular Volume 91, Mean Corpuscular Hemoglobin 29.8, Mean Corpuscular Hemoglobin Concent 32.7, Red Cell Distribution Width 13.8, Platelet Count 209, Mean Platelet Volume 5.9L, Neutrophils (%) (Auto) 74.9, Lymphocytes ( %) (Auto) 11.0L, Monocytes (%) (Auto) 9.5, Eosinophils (%) (Auto) 3.3H, Basophils (%) (Auto) 1.3, Prothrombin Time 17.4H, Prothromb Time International Ratio 1.7H, Sodium Level 131L, Potassium Level 4.5#, Chloride Level 101, Carbon Dioxide Level 22, Anion Gap 8, Blood Urea Nitrogen 11, Creatinine 1.6H, Estimat Glomerular Filtration Rate 54.1, Glucose Level 99, Calcium Level 8.2L, Magnesium Level 1.8, Iron Level 71, Total Iron Binding Capacity 114L, Percent Iron Saturation 62H, Unsaturated Iron Binding 43L, Total Bilirubin 2.4H, Direct Bilirubin 1.5H, Aspartate Amino Transf (AST/SGOT) 98H, Alanine Aminotransferase (ALT/SGPT) 30, Alkaline Phosphatase 140H, Troponin I 0.000, Total Protein 8.2, Albumin 1.5L, Globulin 6.7, Albumin/Globulin Ratio 0.2L, Alpha Fetoprotein [ Pending], Hepatitis A IgM Antibody [Pending], Hepatitis B Surface Antigen [ Pending], Hepatitis B Core IgM Antibody [Pending], Hepatitis C Antibody [Pending ] Height (Feet): 5 Height (Inches): 8.00 Weight (Pounds): 168 Objective WDWN frail, weak reduced breath sounds bilaterally with some rhonchi [id number] without MRG NABS nontender no HSM no CC; reduced ROM nonfocal thakkar out; abdomen less distended Warren Cardoza MD Jan 12, 2018 11:38
--- NOTE | 2018-01-12 11:58 | Diagnostic Imaging Report ---
Indication: Dyspnea Comparison: 01/10/2018 A single view chest radiograph was obtained. Findings: Basilar linear densities are present likely atelectasis. Findings are unchanged. Heart size is stable. IMPRESSION: No change from the prior exam
[2018-01-12 12:00] VITALS: BP 90/58
--- NOTE | 2018-01-12 13:42 | Infectious Diseases Prog Note ---
Assessment/Plan Assessment/Plan A; Pneumonia Acute renal failure Alcoholic cirrhosis Portal hypertension Anemia Diarrhea GI bleeding P; Continue Rocephin & Flagyl Subjective ROS Limited/Unobtainable: No Constitutional: Reports: no symptoms Respiratory: Reports: shortness of breath, productive cough Cardiovascular: Reports: no symptoms Gastrointestinal/Abdominal: Reports: diarrhea, blood in stool Genitourinary: Reports: no symptoms Allergies: Coded Allergies: No Known Allergies (Unverified , 11/16/14) Objective Vital Signs Last 24 Hour Vital Signs Date Time Temp Pulse Resp B/P (MAP) Pulse Ox O2 Delivery O2 Flow Rate FiO2 01/12/18 13:12 97.3 01/12/18 12:00 97.3 95 20 90/58 (69) 95 01/12/18 09:47 Nasal Cannula 2.0 01/12/18 08:41 97 111/84 01/12/18 08:09 97.1 97 20 106/84 (91) 97 01/12/18 08:03 96 20 Room Air 21 01/12/18 04:00 100 01/12/18 04:00 97.5 101 23 110/69 (83) 94 01/12/18 01:31 100 20 Room Air 21 01/12/18 00:00 104 01/12/18 00:00 97.7 104 23 112/71 (85) 94 01/11/18 21:00 Nasal Cannula 2.0 01/11/18 20:00 104 01/11/18 20:00 97.7 108 23 104/71 (82) 95 01/11/18 16:00 101 01/11/18 16:00 97.1 103 20 112/69 (83) 95 Height (Feet): 5 Height (Inches): 8.00 Weight (Pounds): 168 General Appearance: no acute distress HEENT: other - poor dentition Cardiovascular: normal rate Abdomen: distended, other - nontender Extremities: no edema Neurologic/Psychiatric: alert, oriented x 3, responsive Microbiology Date/Time Source Procedure Growth Status 01/11/18 14:30 Stool Stool Culture - Preliminary Resulted 01/10/18 09:15 Stool Clostridium difficile Toxin Assay - Final Complete Laboratory Tests Test 01/12/18 06:40 White Blood Count 14.5 K/UL (4.8-10.8) H Red Blood Count 2.91 M/UL (4.70-6.10) L Hemoglobin 8.7 G/DL (14.2-18.0) L Hematocrit 26.5 % (42.0-52.0) L Mean Corpuscular Volume 91 FL (80-99) Mean Corpuscular Hemoglobin 29.8 PG (27.0-31.0) Mean Corpuscular Hemoglobin Concent 32.7 G/DL (32.0-36.0) Red Cell Distribution Width 13.8 % (11.6-14.8) Platelet Count 209 K/UL (150-450) Mean Platelet Volume 5.9 FL (6.5-10.1) L Neutrophils (%) (Auto) 74.9 % (45.0-75.0) Lymphocytes (%) (Auto) 11.0 % (20.0-45.0) L Monocytes (%) (Auto) 9.5 % (1.0-10.0) Eosinophils (%) (Auto) 3.3 % (0.0-3.0) H Basophils (%) (Auto) 1.3 % (0.0-2.0) Prothrombin Time 17.4 SEC (9.30-11.50) H Prothromb Time International Ratio 1.7 (0.9-1.1) H Sodium Level 131 MMOL/L (136-145) L Potassium Level 4.5 MMOL/L (3.5-5.1) # Chloride Level 101 MMOL/L (98-107) Carbon Dioxide Level 22 MMOL/L (21-32) Anion Gap 8 mmol/L (5-15) Blood Urea Nitrogen 11 mg/dL (7-18) Creatinine 1.6 MG/DL (0.55-1.30) H Estimat Glomerular Filtration Rate 54.1 mL/min (>60) Glucose Level 99 MG/DL (74-106) Calcium Level 8.2 MG/DL (8.5-10.1) L Magnesium Level 1.8 MG/DL (1.8-2.4) Iron Level 71 ug/dL (50-175) Total Iron Binding Capacity 114 ug/dL (250-450) L Percent Iron Saturation 62 % (15-50) H Unsaturated Iron Binding 43 ug/dL (112-346) L Total Bilirubin 2.4 MG/DL (0.2-1.0) H Direct Bilirubin 1.5 MG/DL (0.0-0.3) H Aspartate Amino Transf (AST/SGOT) 98 U/L (15-37) H Alanine Aminotransferase (ALT/SGPT) 30 U/L (12-78) Alkaline Phosphatase 140 U/L (46-116) H Troponin I 0.000 ng/mL (0.000-0.056) Total Protein 8.2 G/DL (6.4-8.2) Albumin 1.5 G/DL (3.4-5.0) L Globulin 6.7 g/dL Albumin/Globulin Ratio 0.2 (1.0-2.7) L Alpha Fetoprotein Pending Hepatitis A IgM Antibody Pending Hepatitis B Surface Antigen Pending Hepatitis B Core IgM Antibody Pending Hepatitis C Antibody Pending Current Medications Medications (Trade) Dose Ordered Sig/Josesito Route PRN Reason Start Time Stop Time Status Last Admin Dose Admin Acetaminophen (Tylenol) 650 mg Q4H PRN ORAL Mild Pain/Temp > 100.5 01/09/18 02:30 02/08/18 02:29 01/10/18 15:20 Albuterol/ Ipratropium (Albuterol/ Ipratropium) 3 ml PRN PRN HHN Shortness of Breath 01/09/18 02:45 01/14/18 02:44 Amlodipine Besylate (Norvasc) 10 mg DAILY ORAL 01/09/18 09:00 02/08/18 08:59 01/12/18 08:41 Aspirin (ASA) 81 mg DAILY ORAL 01/09/18 09:00 02/08/18 08:59 01/12/18 08:41 Azithromycin (Zithromax) 500 mg DAILY ORAL 01/09/18 06:00 01/16/18 05:59 01/12/18 08:41 Carisoprodol (Soma) 350 mg THREE TIMES A DAY ORAL 01/09/18 09:00 02/08/18 08:59 01/12/18 12:42 Ceftriaxone Sodium 1 gm/ Dextrose 55 ml @ 110 mls/hr Q24H IVPB 01/09/18 09:00 01/16/18 08:59 01/12/18 08:27 Gabapentin (Neurontin) 600 mg THREE TIMES A DAY ORAL 01/09/18 09:00 02/08/18 08:59 01/12/18 12:42 Heparin Sodium (Porcine) (Heparin 5000 units/ml) 5,000 units EVERY 8 HOURS SUBQ 01/09/18 06:00 02/08/18 05:59 01/09/18 21:07 Metronidazole (Flagyl) 500 mg Q8H ORAL 01/10/18 10:00 01/17/18 09:59 01/12/18 09:05 Ondansetron HCl (Zofran ODT) 4 mg Q6H PRN ORAL Nausea & Vomiting 01/09/18 02:30 02/08/18 02:29 Pantoprazole (Protonix) 40 mg BID ORAL 01/11/18 09:00 02/10/18 08:59 01/12/18 08:41 Phenyleph/Shark Oil/Glycerin/ Petrol (Preparation H) 1 applic Q12HR RECTAL 01/10/18 09:00 02/09/18 08:59 01/12/18 09:05 Sodium Chloride 1,000 ml @ 75 mls/hr [id number] IV 01/11/18 13:30 02/10/18 13:29 01/12/18 02:46 Tamsulosin HCl (Flomax) 0.4 mg BEDTIME ORAL 01/09/18 21:00 02/08/18 20:59 01/11/18 20:30 Pepito Barboza MD Jan 12, 2018 13:42
--- NOTE | 2018-01-12 14:46 | General Progress Note ---
Assessment/Plan Assessment/Plan Assessment - Excess EtOH use - EtOH hepatitis, with mild hyperbilirubinemia - acute obstructive uropathy - Anemia - rectal bleeding - Diarrhea, C Diff (-) - Chest pain Recommendations - solids today, clears in am - EGD / Colon am, if OK with consultants - monitor labs - f/u AFP - vitamin K - abd U/S --> cirrhosis with mild ascites Subjective Allergies: Coded Allergies: No Known Allergies (Unverified , 11/16/14) Subjective still with diarrhea some blood noted by RN in stools (++) bladder residual to 500cc Cr elevated tolerating liquids Objective Last 24 Hour Vital Signs Date Time Temp Pulse Resp B/P (MAP) Pulse Ox O2 Delivery O2 Flow Rate FiO2 01/12/18 13:12 97.3 01/12/18 12:00 97.3 95 20 90/58 (69) 95 01/12/18 09:47 Nasal Cannula 2.0 01/12/18 08:41 97 111/84 01/12/18 08:09 97.1 97 20 106/84 (91) 97 01/12/18 08:03 96 20 Room Air 21 01/12/18 04:00 100 01/12/18 04:00 97.5 101 23 110/69 (83) 94 01/12/18 01:31 100 20 Room Air 21 01/12/18 00:00 104 01/12/18 00:00 97.7 104 23 112/71 (85) 94 01/11/18 21:00 Nasal Cannula 2.0 01/11/18 20:00 104 01/11/18 20:00 97.7 108 23 104/71 (82) 95 01/11/18 16:00 101 01/11/18 16:00 97.1 103 20 112/69 (83) 95 Intake and Output 01/11/18 01/12/18 19:00 07:00 Intake Total 240 ml 749 ml Balance 240 ml 749 ml Intake Oral 240 ml IV Total 749 ml # Voids 1 3 # Bowel Movements 4 1 Laboratory Tests 01/12/18 06:40: White Blood Count 14.5H, Red Blood Count 2.91L, Hemoglobin 8.7L, Hematocrit 26.5L, Mean Corpuscular Volume 91, Mean Corpuscular Hemoglobin 29.8, Mean Corpuscular Hemoglobin Concent 32.7, Red Cell Distribution Width 13.8, Platelet Count 209, Mean Platelet Volume 5.9L, Neutrophils (%) (Auto) 74.9, Lymphocytes ( %) (Auto) 11.0L, Monocytes (%) (Auto) 9.5, Eosinophils (%) (Auto) 3.3H, Basophils (%) (Auto) 1.3, Prothrombin Time 17.4H, Prothromb Time International Ratio 1.7H, Sodium Level 131L, Potassium Level 4.5#, Chloride Level 101, Carbon Dioxide Level 22, Anion Gap 8, Blood Urea Nitrogen 11, Creatinine 1.6H, Estimat Glomerular Filtration Rate 54.1, Glucose Level 99, Calcium Level 8.2L, Magnesium Level 1.8, Iron Level 71, Total Iron Binding Capacity 114L, Percent Iron Saturation 62H, Unsaturated Iron Binding 43L, Total Bilirubin 2.4H, Direct Bilirubin 1.5H, Aspartate Amino Transf (AST/SGOT) 98H, Alanine Aminotransferase (ALT/SGPT) 30, Alkaline Phosphatase 140H, Troponin I 0.000, Total Protein 8.2, Albumin 1.5L, Globulin 6.7, Albumin/Globulin Ratio 0.2L, Alpha Fetoprotein [ Pending], Hepatitis A IgM Antibody [Pending], Hepatitis B Surface Antigen [ Pending], Hepatitis B Core IgM Antibody [Pending], Hepatitis C Antibody [Pending ] Height (Feet): 5 Height (Inches): 8.00 Weight (Pounds): 168 Objective WDWN AA man NCAT supple CTA RRR abd soft no edema non focal Nadia Prado MD Jan 12, 2018 14:46
[2018-01-12 15:43] VITALS: BP 111/70
[2018-01-12] MEDS ORDERED: Phytonadione 10 mg/mL 1ml amp SUBQ ONE (17:00)
--- NOTE | 2018-01-12 18:28 | Cardiology Report ---
APPROVED REPORT EKG Measurement Heart [id number] and T wave abnormality Abnormal ECG
[2018-01-12 20:00] VITALS: BP 105/65
[2018-01-12] MEDS: Tamsulosin 0.4mg cap ORAL SCH (20:32)
[2018-01-12] MEDS ORDERED: Norco 5mg/325mg tab ORAL PRN (22:45)
--- NOTE | 2018-01-12 22:45 | Progress Note ---
DATE: 01/12/2018 CARDIOLOGY PROGRESS NOTE: SUBJECTIVE: The patient is without chest pain or shortness of breath. He does have cough. He continues to have some bright red blood per rectum. He is status post packed red blood cell transfusion. OBJECTIVE: VITAL SIGNS: Blood pressure 106/84, pulse 97, and respiratory rate 20. Monitored rhythm sinus and sinus tachycardia. LUNGS: Coarse breath sounds. Scattered rhonchi. ABDOMEN: Soft with no focal tenderness. CARDIAC: Regular rhythm and rate. Normal S1, S2 with a fourth heart sound. EXTREMITIES: With no edema. No calf tenderness. IMPRESSION: 1. Pneumonia. 2. Sepsis. 3. Anemia due to GI bleeding. 4. Severe protein-calorie malnutrition, resolved. 5. Lactic acidosis. 6. Cirrhosis. 7. Portal hypertension. 8. Secondary sinus tachycardia. PLAN: 1. Cardiac monitoring. 2. Antimicrobials. 3. Respiratory hygiene. 4. Serial hemoglobin. Transfuse for drop less than 8 g. 5. No anticoagulants or antiplatelet drugs. 6. GI workup may include colonoscopy and/or endoscopy. 7. Cardiovascular parameters are stable for above. If needed, we will follow during this hospital course. Adriel Guerrero M.D. DR: NANCY JOB#: [id number] CC:
--- NOTE | 2018-01-12 23:00 | Progress Note ---
DATE: 01/11/2018 CARDIOLOGY PROGRESS NOTE Late entry for 01/11/2018. SUBJECTIVE: The patient is having some bleeding from his rectum. He denies shortness of breath. He does not have chest pain any longer. Monitored rhythm, sinus tachycardia. OBJECTIVE: VITAL SIGNS: Blood pressure 104/68, pulse 98, respiratory rate 20, and afebrile. LUNGS: Diminished breath sounds. Scattered rhonchi. HEART: Regular rhythm and rate. Normal S1, S2. ABDOMEN: Soft. No focal tenderness. EXTREMITIES: No edema. LABORATORY DATA: White count 15 and hemoglobin 7.5. Sodium 130, potassium 2.9, bicarb 22, BUN 8, and creatinine 1.3. Magnesium 1.9. Albumin yesterday was 1.5. IMPRESSION: 1. Possible gastrointestinal bleeding. 2. Anemia. 3. Hyponatremia. 4. Hypokalemia. 5. Severe protein-calorie malnutrition. 6. Leukocytosis. 7. Coagulopathy. 8. Pleuritic chest pain. 9. Pneumonia with sepsis. 10. Secondary sinus tachycardia. 11. Recovered lactic acidosis. 12. Acute anemia due to acute gastrointestinal blood loss. PLAN: 1. Transfusion of packed red blood cells. 2. Consider vitamin K. 3. No heparin. 4. Antimicrobials. 5. Respiratory hygiene. 6. Continue cardiac monitoring. 7. Maintain adequate hydration. 8. Nutritional support with protein supplement. 9. Consider abdominal CAT scan. Adriel Guerrero M.D. DR: JUAN C JOB#: [id number] CC:
[2018-01-13] VITALS: BP 108/56
[2018-01-13] MEDS: metroNIDAZOLE 500mg tab ORAL SCH ×3 (01:51→18:33)
[2018-01-13 04:00] VITALS: BP 105/60
[2018-01-13] MEDS: NS w/KCl 40mEq 1,000 ML IV SCH (05:01)
[2018-01-13] MEDS: Heparin 5000 units/ml inj SUBQ SCH (05:41)
[2018-01-13 06:41] LABS: BASOPHILS % (AUTO) 1.5 % (0.0-2.0); EOSINOPHILS % (AUTO) 4.5 % (0.0-3.0); HEMATOCRIT 25.5 % (42.0-52.0); HEMOGLOBIN 8.1 G/DL (14.2-18.0); LYMPHOCYTES % (AUTO) 8.6 % (20.0-45.0); MEAN CORPUSCULAR VOLUME 92 FL (80-99); MONOCYTES % (AUTO) 10.4 % (1.0-10.0); PLATELET COUNT 225 K/UL (150-450); RED BLOOD COUNT 2.78 M/UL (4.70-6.10); RED CELL DISTRIBUTION WIDTH 13.7 % (11.6-14.8); WHITE BLOOD COUNT 15.2 K/UL (4.8-10.8)
[2018-01-13 06:52] LABS: INR 1.7 (0.9-1.1)
[2018-01-13 07:03] LABS: ALANINE AMINOTRANSFERASE 30 U/L (12-78); ALBUMIN 1.4 G/DL (3.4-5.0); ALBUMIN/GLOBULIN RATIO 0.2 (1.0-2.7); ALKALINE PHOSPHATASE 142 U/L (46-116); ANION GAP 6 mmol/L (5-15); ASPARTATE AMINO TRANSFERASE 96 U/L (15-37); BILIRUBIN,TOTAL 1.5 MG/DL (0.2-1.0); BLOOD UREA NITROGEN 14 mg/dL (7-18); CALCIUM 8.1 MG/DL (8.5-10.1); CARBON DIOXIDE 20 MMOL/L (21-32); CHLORIDE 105 MMOL/L (98-107); CREATININE 1.8 MG/DL (0.55-1.30); POTASSIUM 4.8 MMOL/L (3.5-5.1); SODIUM 131 MMOL/L (136-145)
[2018-01-13 08:00] VITALS: BP 116/72
--- NOTE | 2018-01-13 08:18 | General Progress Note ---
Assessment/Plan Assessment/Plan Assessment - Excess EtOH use - EtOH hepatitis, with mild hyperbilirubinemia - acute obstructive uropathy - Anemia - rectal bleeding - Diarrhea, C Diff (-) - Chest pain Recommendations - solids today, clears in am - EGD/Colon in am - monitor labs - f/u AFP - vitamin K - abd U/S --> cirrhosis with mild ascites Subjective Allergies: Coded Allergies: No Known Allergies (Unverified , 11/16/14) Subjective still with diarrhea, but improved BRBPR last PM back on clears Objective Last 24 Hour Vital Signs Date Time Temp Pulse Resp B/P (MAP) Pulse Ox O2 Delivery O2 Flow Rate FiO2 01/13/18 04:00 107 01/13/18 04:00 97.9 107 19 105/60 (75) 97 01/13/18 00:00 97 01/13/18 00:00 97.3 102 19 108/56 (73) 96 01/12/18 21:00 Nasal Cannula 2.0 01/12/18 20:00 Nasal Cannula 2.0 28 01/12/18 20:00 93 Nasal Cannula 2.0 28 01/12/18 20:00 98.7 102 19 105/65 (78) 98 01/12/18 20:00 101 01/12/18 20:00 98 20 Nasal Cannula 2.0 28 01/12/18 17:46 97.1 01/12/18 16:00 100 01/12/18 15:43 97.1 99 20 111/70 (84) 95 01/12/18 12:00 95 01/12/18 12:00 97.3 95 20 90/58 (69) 95 01/12/18 09:47 Nasal Cannula 2.0 01/12/18 08:41 97 111/84 Intake and Output 01/12/18 01/13/18 19:00 07:00 Intake Total 1260 ml 1019 ml Output Total 500 ml Balance 1260 ml 519 ml Intake Oral 360 ml 120 ml IV Total 900 ml 899 ml Output Urine Total 500 ml # Bowel Movements 3 3 Laboratory Tests 01/13/18 05:35: White Blood Count 15.2H, Red Blood Count 2.78L, Hemoglobin 8.1L, Hematocrit 25.5L, Mean Corpuscular Volume 92, Mean Corpuscular Hemoglobin 29.3, Mean Corpuscular Hemoglobin Concent 31.9L, Red Cell Distribution Width 13.7, Platelet Count 225, Mean Platelet Volume 5.8L, Neutrophils (%) (Auto) 75.0, Lymphocytes (%) (Auto) 8.6L, Monocytes (%) (Auto) 10.4H, Eosinophils (%) (Auto) 4.5H, Basophils (%) (Auto) 1.5, Prothrombin Time 17.4H, Prothromb Time International Ratio 1.7H, Sodium Level 131L, Potassium Level 4.8, Chloride Level 105, Carbon Dioxide Level 20L, Anion Gap 6, Blood Urea Nitrogen 14, Creatinine 1.8H, Estimat Glomerular Filtration Rate 47.1, Glucose Level 102, Calcium Level 8.1L, Total Bilirubin 1.5H, Direct Bilirubin 1.0H, Aspartate Amino Transf (AST/SGOT) 96H, Alanine Aminotransferase (ALT/SGPT) 30, Alkaline Phosphatase 142H, Total Protein 7.8, Albumin 1.4L, Globulin 6.4, Albumin/ Globulin Ratio 0.2L Height (Feet): 5 Height (Inches): 8.00 Weight (Pounds): 170 Objective WDWN AA man NCAT supple CTA RRR abd soft no edema non focal Nadia Prado MD Jan 13, 2018 08:18
--- NOTE | 2018-01-13 08:53 | Nephrology Progress Note ---
Assessment/Plan Assessment/Plan A/P 1) BENJAMÍN- due to volume depletion/hypotension/Isch ATN and urinary retention - Peterson, hold BP meds SBP <120 and increase IVFs and patient losing much fluid with constant diarrhea 2) Hyponatremia- Na up to 131 - increase IVFs 3) Hypokalemia- corrected. Change and increase IVFs 4) PNA- Abx 5) Anemia/Alcoholic Hepatitis - per GI Subjective Date patient seen: Jan 13, 2018 Time patient seen: 08:50 ROS Limited/Unobtainable: No Gastrointestinal/Abdominal: Reports: abdominal pain, diarrhea Allergies: Coded Allergies: No Known Allergies (Unverified , 11/16/14) Subjective Patient having much diarrhea Objective Last 24 Hour Vital Signs Date Time Temp Pulse Resp B/P (MAP) Pulse Ox O2 Delivery O2 Flow Rate FiO2 01/13/18 08:00 98.1 106 20 116/72 (87) 97 01/13/18 04:00 107 01/13/18 04:00 97.9 107 19 105/60 (75) 97 01/13/18 00:00 97 01/13/18 00:00 97.3 102 19 108/56 (73) 96 01/12/18 21:00 Nasal Cannula 2.0 01/12/18 20:00 Nasal Cannula 2.0 28 01/12/18 20:00 93 Nasal Cannula 2.0 28 01/12/18 20:00 98.7 102 19 105/65 (78) 98 01/12/18 20:00 101 01/12/18 20:00 98 20 Nasal Cannula 2.0 28 01/12/18 17:46 97.1 01/12/18 16:00 100 01/12/18 15:43 97.1 99 20 111/70 (84) 95 01/12/18 12:00 95 01/12/18 12:00 97.3 95 20 90/58 (69) 95 01/12/18 09:47 Nasal Cannula 2.0 Intake and Output 01/12/18 01/13/18 19:00 07:00 Intake Total 1260 ml 1019 ml Output Total 500 ml Balance 1260 ml 519 ml Intake Oral 360 ml 120 ml IV Total 900 ml 899 ml Output Urine Total 500 ml # Bowel Movements 3 3 Laboratory Tests 01/13/18 05:35: White Blood Count 15.2H, Red Blood Count 2.78L, Hemoglobin 8.1L, Hematocrit 25.5L, Mean Corpuscular Volume 92, Mean Corpuscular Hemoglobin 29.3, Mean Corpuscular Hemoglobin Concent 31.9L, Red Cell Distribution Width 13.7, Platelet Count 225, Mean Platelet Volume 5.8L, Neutrophils (%) (Auto) 75.0, Lymphocytes (%) (Auto) 8.6L, Monocytes (%) (Auto) 10.4H, Eosinophils (%) (Auto) 4.5H, Basophils (%) (Auto) 1.5, Prothrombin Time 17.4H, Prothromb Time International Ratio 1.7H, Sodium Level 131L, Potassium Level 4.8, Chloride Level 105, Carbon Dioxide Level 20L, Anion Gap 6, Blood Urea Nitrogen 14, Creatinine 1.8H, Estimat Glomerular Filtration Rate 47.1, Glucose Level 102, Calcium Level 8.1L, Total Bilirubin 1.5H, Direct Bilirubin 1.0H, Aspartate Amino Transf (AST/SGOT) 96H, Alanine Aminotransferase (ALT/SGPT) 30, Alkaline Phosphatase 142H, Total Protein 7.8, Albumin 1.4L, Globulin 6.4, Albumin/ Globulin Ratio 0.2L Height (Feet): 5 Height (Inches): 8.00 Weight (Pounds): 170 General Appearance: no apparent distress, alert EENT: normal ENT inspection Neck: normal alignment, supple Cardiovascular: normal rate, regular rhythm Respiratory/Chest: lungs clear, normal breath sounds Abdomen: non tender, soft Edema: no edema noted Arm (L), no edema noted Arm (R), no edema noted Leg (L), no edema noted Leg (R), no edema noted Pedal (L), no edema noted Pedal (R), no edema noted Generalized Ashok Saavedra MD Jan 13, 2018 08:53
[2018-01-13] MEDS ORDERED: Bisacodyl EC 5mg tab ORAL SCH (09:00)
[2018-01-13] MEDS: Aspirin Baby 81mg ORAL SCH (09:14)
[2018-01-13] MEDS: Azithromycin 250mg tab ORAL SCH (09:14)
[2018-01-13] MEDS: Prep H Ointment 57gm RECTAL SCH ×2 (09:29→20:23)
[2018-01-13] MEDS: cefTRIAXone 1 GM in D5W 55 ML IVPB SCH (09:30)
[2018-01-13] MEDS ORDERED: Nulytely 4L ORAL SCH (09:30)
[2018-01-13] MEDS: Norco 5mg/325mg tab ORAL PRN ×3 (09:56→22:27)
--- NOTE | 2018-01-13 10:30 | Infectious Diseases Prog Note ---
"Assessment/Plan Assessment/Plan antibiotics : ceftriaxone, flagyl A 1. pneumonia 2. r/o GI bleeding 3. portal hypertension 4. alcoholic hepatitis 5. renal failure P 1. continue ceftriaxone, flagyl 2. will follow up cultures 3. EGD | colonoscopy planned Subjective Constitutional: Denies: fever, chills Respiratory: Denies: shortness of breath, dry cough Gastrointestinal/Abdominal: Reports: diarrhea - decreasing, blood in stool; Denies: nausea, vomiting Musculoskeletal: Reports: pain - in back Allergies: Coded Allergies: No Known Allergies (Unverified , 11/16/14) Objective Vital Signs Last 24 Hour Vital Signs Date Time Temp Pulse Resp B/P (MAP) Pulse Ox O2 Delivery O2 Flow Rate FiO2 01/13/18 09:30 98.1 01/13/18 09:30 98.1 01/13/18 09:00 106 116/72 01/13/18 08:00 105 01/13/18 08:00 98.1 106 20 116/72 (87) 97 01/13/18 04:00 107 01/13/18 04:00 97.9 107 19 105/60 (75) 97 01/13/18 00:00 97 01/13/18 00:00 97.3 102 19 108/56 (73) 96 01/12/18 21:00 Nasal Cannula 2.0 01/12/18 20:00 Nasal Cannula 2.0 28 01/12/18 20:00 93 Nasal Cannula 2.0 28 01/12/18 20:00 98.7 102 19 105/65 (78) 98 01/12/18 20:00 101 01/12/18 20:00 98 20 Nasal Cannula 2.0 28 01/12/18 16:00 100 01/12/18 15:43 97.1 99 20 111/70 (84) 95 01/12/18 12:00 95 01/12/18 12:00 97.3 95 20 90/58 (69) 95 Height (Feet): 5 Height (Inches): 8.00 Weight (Pounds): 170 Respiratory/Chest: lungs clear Cardiovascular: normal rate, regular rhythm, no gallop/murmur Abdomen: soft, non tender Extremities: no edema Microbiology Date/Time Source Procedure Growth Status 01/11/18 14:30 Stool Stool Culture - Preliminary YEAST Resulted 01/11/18 14:30 Stool Ova and Parasites - Final Complete 01/11/18 14:30 Stool Ova and Parasite Result 1 - Final Complete Laboratory Tests Test 01/13/18 05:35 White Blood Count 15.2 K/UL (4.8-10.8) H Red Blood Count 2.78 M/UL (4.70-6.10) L Hemoglobin 8.1 G/DL (14.2-18.0) L Hematocrit 25.5 % (42.0-52.0) L Mean Corpuscular Volume 92 FL (80-99) Mean Corpuscular Hemoglobin 29.3 PG (27.0-31.0) Mean Corpuscular Hemoglobin Concent 31.9 G/DL (32.0-36.0) L Red Cell Distribution Width 13.7 % (11.6-14.8) Platelet Count 225 K/UL (150-450) Mean Platelet Volume 5.8 FL (6.5-10.1) L Neutrophils (%) (Auto) 75.0 % (45.0-75.0) Lymphocytes (%) (Auto) 8.6 % (20.0-45.0) L Monocytes (%) (Auto) 10.4 % (1.0-10.0) H Eosinophils (%) (Auto) 4.5 % (0.0-3.0) H Basophils (%) (Auto) 1.5 % (0.0-2.0) Prothrombin Time 17.4 SEC (9.30-11.50) H Prothromb Time International Ratio 1.7 (0.9-1.1) H Sodium Level 131 MMOL/L (136-145) L Potassium Level 4.8 MMOL/L (3.5-5.1) Chloride Level 105 MMOL/L (98-107) Carbon Dioxide Level 20 MMOL/L (21-32) L Anion Gap 6 mmol/L (5-15) Blood Urea Nitrogen 14 mg/dL (7-18) Creatinine 1.8 MG/DL (0.55-1.30) H Estimat Glomerular Filtration Rate 47.1 mL/min (>60) Glucose Level 102 MG/DL (74-106) Calcium Level 8.1 MG/DL (8.5-10.1) L Total Bilirubin 1.5 MG/DL (0.2-1.0) H Direct Bilirubin 1.0 MG/DL (0.0-0.3) H Aspartate Amino Transf (AST/SGOT) 96 U/L (15-37) H Alanine Aminotransferase (ALT/SGPT) 30 U/L (12-78) Alkaline Phosphatase 142 U/L (46-116) H Total Protein 7.8 G/DL (6.4-8.2) Albumin 1.4 G/DL (3.4-5.0) L Globulin 6.4 g/dL Albumin/Globulin Ratio 0.2 (1.0-2.7) L Current Medications Medications (Trade) Dose Ordered Sig/Josesito Route PRN Reason Start Time Stop Time Status Last Admin Dose Admin Acetaminophen (Tylenol) 650 mg Q4H PRN ORAL Mild Pain/Temp > 100.5 01/09/18 02:30 02/08/18 02:29 01/12/18 20:34 Acetaminophen/ Hydrocodone Bitart (Martha 5/325) 1 tab Q4H PRN ORAL Moderate Pain (Pain Scale 4-6) 01/12/18 22:45 01/19/18 22:44 01/13/18 01:51 Acetaminophen/ Hydrocodone Bitart (Martha 5/325) 2 tab Q4H PRN ORAL Severe Pain (Pain Scale 7-10) 01/12/18 22:45 01/19/18 22:44 01/13/18 09:56 Albuterol/ Ipratropium (Albuterol/ Ipratropium) 3 ml PRN PRN HHN Shortness of Breath 01/09/18 02:45 01/14/18 02:44 Amlodipine Besylate (Norvasc) 10 mg DAILY ORAL 01/09/18 09:00 02/08/18 08:59 01/12/18 08:41 Aspirin (ASA) 81 mg DAILY ORAL 01/09/18 09:00 02/08/18 08:59 01/13/18 09:14 Azithromycin (Zithromax) 500 mg DAILY ORAL 01/09/18 06:00 01/16/18 05:59 01/13/18 09:14 Carisoprodol (Soma) 350 mg THREE TIMES A DAY ORAL 01/09/18 09:00 02/08/18 08:59 01/13/18 09:15 Ceftriaxone Sodium 1 gm/ Dextrose 55 ml @ 110 mls/hr Q24H IVPB 01/09/18 09:00 01/16/18 08:59 01/13/18 09:30 Gabapentin (Neurontin) 600 mg THREE TIMES A DAY ORAL 01/09/18 09:00 02/08/18 08:59 01/13/18 09:14 Heparin Sodium (Porcine) (Heparin 5000 units/ml) 5,000 units EVERY 8 HOURS SUBQ 01/14/18 14:00 02/13/18 13:59 Metronidazole (Flagyl) 500 mg Q8H ORAL 01/10/18 10:00 01/17/18 09:59 01/13/18 09:14 Ondansetron HCl (Zofran ODT) 4 mg Q6H PRN ORAL Nausea & Vomiting 01/09/18 02:30 02/08/18 02:29 Pantoprazole (Protonix) 40 mg BID ORAL 01/11/18 09:00 02/10/18 08:59 01/13/18 09:15 Phenyleph/Shark Oil/Glycerin/ Petrol (Preparation H) 1 applic Q12HR RECTAL 01/10/18 09:00 02/09/18 08:59 01/13/18 09:29 Polyethylene Glycol/ Electrolytes (Nulytely) 4,000 ml ONCE ORAL 01/13/18 09:30 01/13/18 23:59 Sodium Chloride 1,000 ml @ 125 mls/hr Q8H IV 01/13/18 08:55 02/12/18 08:54 01/13/18 09:15 Tamsulosin HCl (Flomax) 0.4 mg BEDTIME ORAL 01/09/18 21:00 02/08/18 20:59 01/12/18 20:32 Raimundo Thomas MD Jan 13, 2018 10:30"
[2018-01-13 12:00] VITALS: BP 109/74
[2018-01-13 16:08] VITALS: BP 104/69
--- NOTE | 2018-01-13 18:16 | General Progress Note ---
Assessment/Plan Assessment/Plan 1. Pneumonia. 2. Sepsis. 3. Anemia. 4. Pleuritic chest pain. 5. hypokalemia. 6. Pulmonary congestion 7. Severe protein-calorie malnutrition. 8. Lactic acidosis recovered. 9. urinary retention, likely BPH 10. cirrhosis with portal hypertension PLAN IV antibiotics - dc? respiratory care ID evaluation to assist check cultures, final egd and colon in am protonix monitor clinically abstinence discussed short term snf; hope in am pending gi clearance impression, plan, and exam edited and reviewed in detail care discussed with RN Subjective Allergies: Coded Allergies: No Known Allergies (Unverified , 11/16/14) Subjective care noted and reviewed no congestion bloody stool Objective Last 24 Hour Vital Signs Date Time Temp Pulse Resp B/P (MAP) Pulse Ox O2 Delivery O2 Flow Rate FiO2 01/13/18 16:08 97.3 104 20 104/69 (81) 100 01/13/18 16:00 104 01/13/18 14:54 98.0 01/13/18 13:41 98.0 01/13/18 12:00 98.0 107 20 109/74 (86) 97 01/13/18 12:00 103 01/13/18 09:00 Nasal Cannula 2.0 01/13/18 09:00 106 116/72 01/13/18 08:23 86 18 Nasal Cannula 2.0 28 01/13/18 08:17 Nasal Cannula 2.0 28 01/13/18 08:16 95 Nasal Cannula 2.0 28 01/13/18 08:00 105 01/13/18 08:00 98.1 106 20 116/72 (87) 97 01/13/18 04:00 107 01/13/18 04:00 97.9 107 19 105/60 (75) 97 01/13/18 00:00 97 01/13/18 00:00 97.3 102 19 108/56 (73) 96 01/12/18 21:00 Nasal Cannula 2.0 01/12/18 20:00 Nasal Cannula 2.0 28 01/12/18 20:00 93 Nasal Cannula 2.0 28 01/12/18 20:00 98.7 102 19 105/65 (78) 98 01/12/18 20:00 101 01/12/18 20:00 98 20 Nasal Cannula 2.0 28 Intake and Output 01/12/18 01/13/18 19:00 07:00 Intake Total 1260 ml 1019 ml Output Total 500 ml Balance 1260 ml 519 ml Intake Oral 360 ml 120 ml IV Total 900 ml 899 ml Output Urine Total 500 ml # Bowel Movements 3 3 Laboratory Tests 01/13/18 05:35: White Blood Count 15.2H, Red Blood Count 2.78L, Hemoglobin 8.1L, Hematocrit 25.5L, Mean Corpuscular Volume 92, Mean Corpuscular Hemoglobin 29.3, Mean Corpuscular Hemoglobin Concent 31.9L, Red Cell Distribution Width 13.7, Platelet Count 225, Mean Platelet Volume 5.8L, Neutrophils (%) (Auto) 75.0, Lymphocytes (%) (Auto) 8.6L, Monocytes (%) (Auto) 10.4H, Eosinophils (%) (Auto) 4.5H, Basophils (%) (Auto) 1.5, Prothrombin Time 17.4H, Prothromb Time International Ratio 1.7H, Sodium Level 131L, Potassium Level 4.8, Chloride Level 105, Carbon Dioxide Level 20L, Anion Gap 6, Blood Urea Nitrogen 14, Creatinine 1.8H, Estimat Glomerular Filtration Rate 47.1, Glucose Level 102, Calcium Level 8.1L, Total Bilirubin 1.5H, Direct Bilirubin 1.0H, Aspartate Amino Transf (AST/SGOT) 96H, Alanine Aminotransferase (ALT/SGPT) 30, Alkaline Phosphatase 142H, Total Protein 7.8, Albumin 1.4L, Globulin 6.4, Albumin/ Globulin Ratio 0.2L Height (Feet): 5 Height (Inches): 8.00 Weight (Pounds): 170 Objective WDWN frail, weak but alert reduced breath sounds bilaterally without rhonchi [id number] without MRG NABS nontender no HSM no CC; reduced ROM nonfocal bijan in Warren Cardoza MD Jan 13, 2018 18:16
[2018-01-13 20:00] VITALS: BP 117/71
[2018-01-13] MEDS: Tamsulosin 0.4mg cap ORAL SCH (20:23)
[2018-01-14] VITALS (8 sets, daily range): BP systolic 93–132; BP diastolic 62–75
--- NOTE | 2018-01-14 | Progress Note ---
DATE: 01/13/2018 CARDIOLOGY PROGRESS NOTE SUBJECTIVE: The patient continues to have some congestion and chest pain with cough. He has had some ____ blood per rectum. OBJECTIVE: VITAL SIGNS: Blood pressure is 104/69, heart rate 104, and respiratory rate 20. LUNGS: Coarse breath sounds with rhonchi. HEART: Regular rhythm. Rapid rate. Normal S1 and S2. ABDOMEN: Soft. No focal tenderness. EXTREMITIES: With no edema. LABORATORY DATA: White count 15.2 and hemoglobin 8.1. Potassium 4.8, sodium 131, bicarbonate 20, BUN 14, creatinine 1.8, and albumin 1.4. IMPRESSION: 1. Gastrointestinal bleed. 2. Anemia. 3. Secondary sinus tachycardia. 4. Pleuritic chest pain. 5. Community-acquired pneumonia. 6. Metabolic acidosis, resolved. 7. Lactic acidosis. 8. Severe protein calorie malnutrition. 9. Cirrhosis with portal hypertension. PLAN: 1. Respiratory hygiene. 2. Bronchodilators. 3. Antimicrobials. 4. Proton pump inhibitors. 5. Antitussives. 6. Diagnostic panendoscopy planned. 7. Stable from cardiovascular standpoint to proceed with minimally increased risk for appropriate anesthesia. 8. We will finalize discharge medication regimen once diagnostic workup is completes. Adriel Guerrero M.D. DR: SHELIA JOB#: [id number] CC:
[2018-01-14] MEDS: metroNIDAZOLE 500mg tab ORAL SCH ×2 (01:29→09:22)
[2018-01-14 06:58] LABS: INR 1.5 (0.9-1.1)
[2018-01-14] MEDS ORDERED: Fleet's Enema 133ml RECTAL ONE (07:00)
[2018-01-14 07:10] LABS: EOSINOPHILS % (AUTO) 4.4 % (0.0-3.0); HEMOGLOBIN 8.1 G/DL (14.2-18.0); LYMPHOCYTES % (AUTO) 7.4 % (20.0-45.0); MEAN CORPUSCULAR VOLUME 92 FL (80-99); MONOCYTES % (AUTO) 8.4 % (1.0-10.0); NEUTROPHILS % (AUTO) 77.8 % (45.0-75.0); PLATELET COUNT 208 K/UL (150-450); RED BLOOD COUNT 2.71 M/UL (4.70-6.10); RED CELL DISTRIBUTION WIDTH 14.1 % (11.6-14.8); WHITE BLOOD COUNT 16.5 K/UL (4.8-10.8)
[2018-01-14 07:23] LABS: ALANINE AMINOTRANSFERASE 26 U/L (12-78); ALBUMIN 1.4 G/DL (3.4-5.0); ALBUMIN/GLOBULIN RATIO 0.2 (1.0-2.7); ALKALINE PHOSPHATASE 138 U/L (46-116); ANION GAP 9 mmol/L (5-15); ASPARTATE AMINO TRANSFERASE 101 U/L (15-37); BILIRUBIN,TOTAL 1.6 MG/DL (0.2-1.0); BLOOD UREA NITROGEN 16 mg/dL (7-18); CALCIUM 8.1 MG/DL (8.5-10.1); CARBON DIOXIDE 20 MMOL/L (21-32); CHLORIDE 106 MMOL/L (98-107); CREATININE 1.5 MG/DL (0.55-1.30); POTASSIUM 4.4 MMOL/L (3.5-5.1); SODIUM 135 MMOL/L (136-145)
[2018-01-14 07:25] LABS: BILIRUBIN,DIRECT 0.9 MG/DL (0.0-0.3)
[2018-01-14] MEDS: Prep H Ointment 57gm RECTAL SCH (08:31)
[2018-01-14] MEDS: Aspirin Baby 81mg ORAL SCH (08:32)
[2018-01-14] MEDS: Azithromycin 250mg tab ORAL SCH (08:32)
--- NOTE | 2018-01-14 08:32 | Nephrology Progress Note ---
Assessment/Plan Assessment/Plan A/P 1) BENJAMÍN- due to volume depletion/hypotension/Isch ATN and urinary retention - Peterson. Cr down to 1.5 - hold BP meds SBP <120 2) Hyponatremia- Na up to 135 - IVFs 3) Hypokalemia- corrected. 4) PNA- Abx 5) Anemia/Alcoholic Hepatitis - per GI - panendoscopy planned Subjective Date patient seen: Jan 14, 2018 Time patient seen: 08:29 ROS Limited/Unobtainable: No Gastrointestinal/Abdominal: Reports: diarrhea Allergies: Coded Allergies: No Known Allergies (Unverified , 11/16/14) Subjective Patient diarrhea improved. Pending colonoscopy Objective Last 24 Hour Vital Signs Date Time Temp Pulse Resp B/P (MAP) Pulse Ox O2 Delivery O2 Flow Rate FiO2 01/14/18 04:00 101 01/14/18 04:00 97.1 99 18 132/75 (94) 98 01/14/18 00:00 97 01/14/18 00:00 97.4 100 19 122/69 (86) 97 01/13/18 21:00 Nasal Cannula 2.0 01/13/18 20:37 96 Room Air 2.0 21 01/13/18 20:37 Room Air 21 01/13/18 20:37 99 16 Room Air 21 01/13/18 20:00 97.1 98 18 117/71 (86) 96 01/13/18 20:00 98 01/13/18 19:10 97.3 01/13/18 16:08 97.3 104 20 104/69 (81) 100 01/13/18 16:00 104 01/13/18 14:54 98.0 01/13/18 12:00 98.0 107 20 109/74 (86) 97 01/13/18 12:00 103 01/13/18 09:00 Nasal Cannula 2.0 01/13/18 09:00 106 116/72 Intake and Output 01/13/18 01/14/18 19:00 07:00 Intake Total 420 ml 750 ml Output Total 200 ml Balance 220 ml 750 ml Intake Oral 420 ml IV Total 750 ml Output Urine Total 200 ml # Voids 3 # Bowel Movements 7 6 Laboratory Tests 01/14/18 06:25: White Blood Count 16.5H, Red Blood Count 2.71L, Hemoglobin 8.1L, Hematocrit 25.0L, Mean Corpuscular Volume 92, Mean Corpuscular Hemoglobin 29.8, Mean Corpuscular Hemoglobin Concent 32.3, Red Cell Distribution Width 14.1, Platelet Count 208, Mean Platelet Volume 5.5L, Neutrophils (%) (Auto) 77.8H, Lymphocytes (%) (Auto) 7.4L, Monocytes (%) (Auto) 8.4, Eosinophils (%) (Auto) 4.4H, Basophils (%) (Auto) 2.0, Prothrombin Time 15.8H, Prothromb Time International Ratio 1.5H, Sodium Level 135L, Potassium Level 4.4, Chloride Level 106, Carbon Dioxide Level 20L, Anion Gap 9, Blood Urea Nitrogen 16, Creatinine 1.5H, Estimat Glomerular Filtration Rate 58.3, Glucose Level 89, Calcium Level 8.1L, Magnesium Level 1.9, Total Bilirubin 1.6H, Direct Bilirubin 0.9H, Aspartate Amino Transf (AST/SGOT) 101H, Alanine Aminotransferase (ALT/SGPT) 26, Alkaline Phosphatase 138H, Total Protein 7.9, Albumin 1.4L, Globulin 6.5, Albumin/ Globulin Ratio 0.2L Height (Feet): 5 Height (Inches): 5.00 Weight (Pounds): 170 General Appearance: WD/WN EENT: normal ENT inspection Neck: normal alignment, supple Cardiovascular: normal rate, regular rhythm Respiratory/Chest: lungs clear, normal breath sounds Abdomen: non tender, soft Edema: no edema noted Arm (L), no edema noted Arm (R), no edema noted Leg (L), no edema noted Leg (R), no edema noted Pedal (L), no edema noted Pedal (R), no edema noted Generalized Ashok Saavedra MD Jan 14, 2018 08:32
[2018-01-14] MEDS: cefTRIAXone 1 GM in D5W 55 ML IVPB SCH (08:34)
--- NOTE | 2018-01-14 08:55 | General Progress Note ---
Assessment/Plan Assessment/Plan 1. Pneumonia. 2. Sepsis. 3. Anemia. 4. Pleuritic chest pain. 5. hypokalemia. 6. Pulmonary congestion 7. Severe protein-calorie malnutrition. 8. Lactic acidosis recovered. 9. urinary retention, likely BPH 10. cirrhosis with portal hypertension PLAN IV antibiotics - dc? per ID respiratory care ID evaluation to assist with elevated wbc check cultures, final egd and colon today may need transfusion protonix monitor clinically abstinence discussed short term snf; hope in am pending gi clearance impression, plan, and exam edited and reviewed in detail care discussed with RN Subjective Allergies: Coded Allergies: No Known Allergies (Unverified , 11/16/14) Subjective care noted and reviewed no congestion procedure today Objective Last 24 Hour Vital Signs Date Time Temp Pulse Resp B/P (MAP) Pulse Ox O2 Delivery O2 Flow Rate FiO2 01/14/18 08:34 102 101/68 01/14/18 04:00 101 01/14/18 04:00 97.1 99 18 132/75 (94) 98 01/14/18 00:00 97 01/14/18 00:00 97.4 100 19 122/69 (86) 97 01/13/18 21:00 Nasal Cannula 2.0 01/13/18 20:37 96 Room Air 2.0 21 01/13/18 20:37 Room Air 21 01/13/18 20:37 99 16 Room Air 21 01/13/18 20:00 97.1 98 18 117/71 (86) 96 01/13/18 20:00 98 01/13/18 19:10 97.3 01/13/18 16:08 97.3 104 20 104/69 (81) 100 01/13/18 16:00 104 01/13/18 14:54 98.0 01/13/18 12:00 98.0 107 20 109/74 (86) 97 01/13/18 12:00 103 01/13/18 09:00 Nasal Cannula 2.0 01/13/18 09:00 106 116/72 Intake and Output 01/13/18 01/14/18 19:00 07:00 Intake Total 420 ml 750 ml Output Total 200 ml Balance 220 ml 750 ml Intake Oral 420 ml IV Total 750 ml Output Urine Total 200 ml # Voids 3 # Bowel Movements 7 6 Laboratory Tests 01/14/18 06:25: White Blood Count 16.5H, Red Blood Count 2.71L, Hemoglobin 8.1L, Hematocrit 25.0L, Mean Corpuscular Volume 92, Mean Corpuscular Hemoglobin 29.8, Mean Corpuscular Hemoglobin Concent 32.3, Red Cell Distribution Width 14.1, Platelet Count 208, Mean Platelet Volume 5.5L, Neutrophils (%) (Auto) 77.8H, Lymphocytes (%) (Auto) 7.4L, Monocytes (%) (Auto) 8.4, Eosinophils (%) (Auto) 4.4H, Basophils (%) (Auto) 2.0, Prothrombin Time 15.8H, Prothromb Time International Ratio 1.5H, Sodium Level 135L, Potassium Level 4.4, Chloride Level 106, Carbon Dioxide Level 20L, Anion Gap 9, Blood Urea Nitrogen 16, Creatinine 1.5H, Estimat Glomerular Filtration Rate 58.3, Glucose Level 89, Calcium Level 8.1L, Magnesium Level 1.9, Total Bilirubin 1.6H, Direct Bilirubin 0.9H, Aspartate Amino Transf (AST/SGOT) 101H, Alanine Aminotransferase (ALT/SGPT) 26, Alkaline Phosphatase 138H, Total Protein 7.9, Albumin 1.4L, Globulin 6.5, Albumin/ Globulin Ratio 0.2L Height (Feet): 5 Height (Inches): 5.00 Weight (Pounds): 170 Objective WDWN frail, weak but alert reduced breath sounds bilaterally without rhonchi [id number] without MRG NABS nontender no HSM no CC; reduced ROM [facility]ocal [facility] Jan 14, 2018 08:55
--- NOTE | 2018-01-14 10:18 | Anethesia Preoperative Eval ---
Anesthesia Pre-op PMH/ROS General Date of Evaluation: Jan 14, 2018 Time of Evaluation: 10:12 Anesthesiologist: Leila Hastings CRNA ASA Score: ASA 3 Mallampati Score Class I : Soft palate, uvula, fauces, pillars visible Class II: Soft palate, uvula, fauces visible Class III: Soft palate, base of uvula visible Class IV: Only hard plate visible Mallampati Classification: Class III Surgeon: Eve Diagnosis: GI bleed Surgical Procedure: Diagnostic GD and colonoscopy Anesthesia History: none Social History: current smoker Family History: no anesthesia problems Allergies: Coded Allergies: No Known Allergies (Unverified , 11/16/14) Medications: see eMAR Patient NPO?: Yes NPO Date: Jan 14, 2018 NPO Time: 00:00 Past Medical History Cardiovascular: Reports: HTN, other - sinus tachycardia, Admit ER 01/09/16 for acute chest pain; Denies: CAD, DE, valve dz, arrhythmia Pulmonary: Reports: other - pneumonia (B) infiltrates; Denies: asthma, COPD, DEVIKA Gastrointestinal/Genitourinary: Reports: other - Acute renal failure; GI bleeding, alcohol induced cirrhosis; BPH; Denies: GERD, CRI, ESRD Neurologic/Psychiatric: Denies: dementia, CVA, depression/anxiety, TIA, other Endocrine: Denies: DM, hypothyroidism, steroids, other HEENT: Denies: cataract (L), cataract (R), glaucoma, [place] (L), [place] (R), other Hematology/Immune: Reports: anemia; Denies: DVT, bleeding disorder, other Musculoskeletal/Integumentary: Reports: other - cervical spinal stenosis s/p neck surgery, (+) neuropathy; Denies: OA, RA, DJD, DDD, edema PMH Narrative: as above PSxH Narrative: neck surgery Anesthesia Pre-op Phys. Exam Physician Exam Last Vital Signs Date Time Temp Pulse Resp B/P (MAP) Pulse Ox O2 Delivery O2 Flow Rate FiO2 01/14/18 09:03 97.1 01/14/18 09:00 Nasal Cannula 2.0 01/14/18 08:34 102 101/68 01/14/18 08:00 18 98 01/13/18 20:37 21 Constitutional: NAD Neurologic: CN 2-12 intact Cardiovascular: RRR, other - tachycardic Respiratory: CTA Gastrointestinal: S/NT/ND Airway Exam Mallampati Score: Class III MO: full Neck: limited TMD: > 3 FB ROM: full Teeth: missing, broken Dentures: no upper, no lower Anesthesia Pre-op A/P Labs Hematology Test 01/14/18 06:25 White Blood Count 16.5 K/UL (4.8-10.8) H Red Blood Count 2.71 M/UL (4.70-6.10) L Hemoglobin 8.1 G/DL (14.2-18.0) L Hematocrit 25.0 % (42.0-52.0) L Mean Corpuscular Volume 92 FL (80-99) Mean Corpuscular Hemoglobin 29.8 PG (27.0-31.0) Mean Corpuscular Hemoglobin Concent 32.3 G/DL (32.0-36.0) Red Cell Distribution Width 14.1 % (11.6-14.8) Platelet Count 208 K/UL (150-450) Mean Platelet Volume 5.5 FL (6.5-10.1) L Neutrophils (%) (Auto) 77.8 % (45.0-75.0) H Lymphocytes (%) (Auto) 7.4 % (20.0-45.0) L Monocytes (%) (Auto) 8.4 % (1.0-10.0) Eosinophils (%) (Auto) 4.4 % (0.0-3.0) H Basophils (%) (Auto) 2.0 % (0.0-2.0) Coagulation Test 01/14/18 06:25 Prothrombin Time 15.8 SEC (9.30-11.50) H Prothromb Time International Ratio 1.5 (0.9-1.1) H Chemistry Test 01/14/18 06:25 Sodium Level 135 MMOL/L (136-145) L Potassium Level 4.4 MMOL/L (3.5-5.1) Chloride Level 106 MMOL/L (98-107) Carbon Dioxide Level 20 MMOL/L (21-32) L Anion Gap 9 mmol/L (5-15) Blood Urea Nitrogen 16 mg/dL (7-18) Creatinine 1.5 MG/DL (0.55-1.30) H Estimat Glomerular Filtration Rate 58.3 mL/min (>60) Glucose Level 89 MG/DL (74-106) Calcium Level 8.1 MG/DL (8.5-10.1) L Magnesium Level 1.9 MG/DL (1.8-2.4) Total Bilirubin 1.6 MG/DL (0.2-1.0) H Direct Bilirubin 0.9 MG/DL (0.0-0.3) H Aspartate Amino Transf (AST/SGOT) 101 U/L (15-37) H Alanine Aminotransferase (ALT/SGPT) 26 U/L (12-78) Alkaline Phosphatase 138 U/L (46-116) H Total Protein 7.9 G/DL (6.4-8.2) Albumin 1.4 G/DL (3.4-5.0) L Globulin 6.5 g/dL Albumin/Globulin Ratio 0.2 (1.0-2.7) L Studies Pre-op Studies: EKG - ST with nonspecific ST and T wave abnormality HR 104, CXR - (B) infiltrates Risk Assessment & Plan Assessment: ASA 3, ok to proceed, higher risk classification given active pneumonia and O2 dependence, pt aware Plan: MAC Status Change Before Surgery: No Pre-Antibiotics Given Within 1 Hr of Incision: Leila Graham CRNA Jan 14, 2018 10:18
[2018-01-14] MEDS ORDERED: NS 500ML IVPB ONE (10:40)
[2018-01-14] MEDS ORDERED: fentaNYL 100 mcg/2 mL IV ONE (10:42)
[2018-01-14] MEDS ORDERED: Lidocaine 1% MPF 10mg/ml 5ml ONE (10:50)
[2018-01-14] MEDS ORDERED: Propofol 200mg/20ml IV ONE (10:50)
[2018-01-14] MEDS ORDERED: Phenylephrine 10mg/ml 5ml vial IV ONE (10:50)
--- NOTE | 2018-01-14 10:50 | General Progress Note ---
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 - Excess EtOH use - EtOH hepatitis, with mild hyperbilirubinemia - acute obstructive uropathy - Anemia - rectal bleeding - Diarrhea, C Diff (-) - Chest pain Recommendations - Respiratory droplet isolation - EGD/Colon today - monitor labs - f/u AFP - abd U/S --> cirrhosis with mild ascites Subjective Allergies: Coded Allergies: No Known Allergies (Unverified , 11/16/14) Subjective Seen earlier today took prep for colonoscopy some rectal bleeding noted last pm just transported to GI lab labs noted --> Mycomplasma IgM (+) unable to contact rehab therapist CDC guidelines reviewed and d/w ID --> placed on droplet precautions Objective Last 24 Hour Vital Signs Date Time Temp Pulse Resp B/P (MAP) Pulse Ox O2 Delivery O2 Flow Rate FiO2 01/14/18 09:03 97.1 01/14/18 09:00 Nasal Cannula 2.0 01/14/18 08:34 102 101/68 01/14/18 08:00 98.0 102 18 101/68 (79) 98 01/14/18 08:00 103 01/14/18 04:00 101 01/14/18 04:00 97.1 99 18 132/75 (94) 98 01/14/18 00:00 97 01/14/18 00:00 97.4 100 19 122/69 (86) 97 01/13/18 21:00 Nasal Cannula 2.0 01/13/18 20:37 96 Room Air 2.0 21 01/13/18 20:37 Room Air 21 01/13/18 20:37 99 16 Room Air 21 01/13/18 20:00 97.1 98 18 117/71 (86) 96 01/13/18 20:00 98 01/13/18 16:08 97.3 104 20 104/69 (81) 100 01/13/18 16:00 104 01/13/18 14:54 98.0 01/13/18 12:00 98.0 107 20 109/74 (86) 97 01/13/18 12:00 103 Intake and Output 01/13/18 01/14/18 19:00 07:00 Intake Total 420 ml 750 ml Output Total 200 ml Balance 220 ml 750 ml Intake Oral 420 ml IV Total 750 ml Output Urine Total 200 ml # Voids 3 # Bowel Movements 7 6 Laboratory Tests 01/14/18 06:25: White Blood Count 16.5H, Red Blood Count 2.71L, Hemoglobin 8.1L, Hematocrit 25.0L, Mean Corpuscular Volume 92, Mean Corpuscular Hemoglobin 29.8, Mean Corpuscular Hemoglobin Concent 32.3, Red Cell Distribution Width 14.1, Platelet Count 208, Mean Platelet Volume 5.5L, Neutrophils (%) (Auto) 77.8H, Lymphocytes (%) (Auto) 7.4L, Monocytes (%) (Auto) 8.4, Eosinophils (%) (Auto) 4.4H, Basophils (%) (Auto) 2.0, Prothrombin Time 15.8H, Prothromb Time International Ratio 1.5H, Sodium Level 135L, Potassium Level 4.4, Chloride Level 106, Carbon Dioxide Level 20L, Anion Gap 9, Blood Urea Nitrogen 16, Creatinine 1.5H, Estimat Glomerular Filtration Rate 58.3, Glucose Level 89, Calcium Level 8.1L, Magnesium Level 1.9, Total Bilirubin 1.6H, Direct Bilirubin 0.9H, Aspartate Amino Transf (AST/SGOT) 101H, Alanine Aminotransferase (ALT/SGPT) 26, Alkaline Phosphatase 138H, Total Protein 7.9, Albumin 1.4L, Globulin 6.5, Albumin/ Globulin Ratio 0.2L Height (Feet): 5 Height (Inches): 5.00 Weight (Pounds): 170 Objective WDWN AA man NCAT supple CTA RRR abd soft no edema non focal Nadia Prado MD Jan 14, 2018 10:50
--- NOTE | 2018-01-14 10:51 | Pre-Procedure Note/Attestation ---
Pre-Procedure Note/Attestation Complete Prior to Procedure Planned Procedure: not applicable Procedure Narrative: EGD/Colon Indications for Procedure Pre-Operative Diagnosis: Anemia Rectal bleeding Attestation I attest that I discussed the nature of the procedure; its benefits; risks and complications; and alternatives (and the risks and benefits of such alternatives ), prior to the procedure, with the patient (or the patient's legal sales utility representative). I attest that, if there was a reasonable possibility of needing a blood transfusion, the patient (or the patient's legal sales utility representative) was given the [facility] standardized written summary, pursuant to the Ernst Ivan Blood Safety Act ([place] Health and Safety Code # 1645, as amended). I attest that I re-evaluated the patient just prior to the surgery and that there has been no change in the patient's H&P, except as documented below: Nadia Prado MD Jan 14, 2018 10:51
--- NOTE | 2018-01-14 12:06 | Immediate Post-Op Evaluation ---
Immediate Post-Op Evalulation Immediate Post-Op Evalulation Procedure: Diagnostic EGD & colonoscopy Date of Evaluation: Jan 14, 2018 Time of Evaluation: 11:51 IV Fluids: 0.9% NS 350 ml Blood Pressure Systolic: 099 Blood Pressure Diastolic: 69 Pulse Rate: 100 Respiratory Rate: 12 O2 Sat by Pulse Oximetry: 98 Temperature (Fahrenheit): 97.2 Pain Score (1-10): 0 Nausea: No Vomiting: No Complications none Patient Status: awake, reacts, patent Hydration Status: adequate Given Within 1 Hr of Incision: Leila Graham CRNA Jan 14, 2018 12:06
--- NOTE | 2018-01-14 12:49 | Infectious Diseases Prog Note ---
Assessment/Plan Assessment/Plan A; Pneumonia likely with Mycoplasma Acute renal failure Alcoholic cirrhosis Portal hypertension Anemia Diarrhea GI bleeding P; discontinue Rocephin & Flagyl Continue Zithromax Subjective ROS Limited/Unobtainable: Yes Gastrointestinal/Abdominal: Reports: other - had EGD & colonoscopy today Allergies: Coded Allergies: No Known Allergies (Unverified , 11/16/14) Objective Vital Signs Last 24 Hour Vital Signs Date Time Temp Pulse Resp B/P (MAP) Pulse Ox O2 Delivery O2 Flow Rate FiO2 01/14/18 12:10 97.8 99 21 100/62 99 Nasal Cannula 3 01/14/18 12:06 100 12 98 01/14/18 12:01 99 23 93/70 98 Simple Mask 6 01/14/18 11:56 98 19 95/67 98 Simple Mask 6 01/14/18 11:51 97.2 100 12 99/63 98 Simple Mask 6 01/14/18 09:03 97.1 01/14/18 09:00 Nasal Cannula 2.0 01/14/18 08:34 102 101/68 01/14/18 08:06 Room Air 21 01/14/18 08:06 81 16 Room Air 21 01/14/18 08:06 95 Room Air 21 01/14/18 08:00 98.0 102 18 101/68 (79) 98 01/14/18 08:00 103 01/14/18 04:00 101 01/14/18 04:00 97.1 99 18 132/75 (94) 98 01/14/18 00:00 97 01/14/18 00:00 97.4 100 19 122/69 (86) 97 01/13/18 21:00 Nasal Cannula 2.0 01/13/18 20:37 96 Room Air 2.0 21 01/13/18 20:37 Room Air 21 01/13/18 20:37 99 16 Room Air 21 01/13/18 20:00 97.1 98 18 117/71 (86) 96 01/13/18 20:00 98 01/13/18 16:08 97.3 104 20 104/69 (81) 100 01/13/18 16:00 104 01/13/18 14:54 98.0 Height (Feet): 5 Height (Inches): 5.00 Weight (Pounds): 170 General Appearance: no acute distress HEENT: mucous membranes moist Respiratory/Chest: lungs clear Cardiovascular: normal rate Abdomen: soft, non tender Extremities: no edema Neurologic/Psychiatric: other - sleeping Microbiology Date/Time Source Procedure Growth Status 01/12/18 06:00 Sputum Gram Stain - Final Complete 01/12/18 06:00 Sputum Culture - Final Edith Albicans Usual Respiratory Marjorie Complete 01/11/18 14:30 Stool Stool Culture - Final Edith Albicans Complete 01/11/18 14:30 Stool Ova and Parasites - Final Complete 01/11/18 14:30 Stool Ova and Parasite Result 1 - Final Complete Laboratory Tests Test 01/14/18 06:25 White Blood Count 16.5 K/UL (4.8-10.8) H Red Blood Count 2.71 M/UL (4.70-6.10) L Hemoglobin 8.1 G/DL (14.2-18.0) L Hematocrit 25.0 % (42.0-52.0) L Mean Corpuscular Volume 92 FL (80-99) Mean Corpuscular Hemoglobin 29.8 PG (27.0-31.0) Mean Corpuscular Hemoglobin Concent 32.3 G/DL (32.0-36.0) Red Cell Distribution Width 14.1 % (11.6-14.8) Platelet Count 208 K/UL (150-450) Mean Platelet Volume 5.5 FL (6.5-10.1) L Neutrophils (%) (Auto) 77.8 % (45.0-75.0) H Lymphocytes (%) (Auto) 7.4 % (20.0-45.0) L Monocytes (%) (Auto) 8.4 % (1.0-10.0) Eosinophils (%) (Auto) 4.4 % (0.0-3.0) H Basophils (%) (Auto) 2.0 % (0.0-2.0) Prothrombin Time 15.8 SEC (9.30-11.50) H Prothromb Time International Ratio 1.5 (0.9-1.1) H Sodium Level 135 MMOL/L (136-145) L Potassium Level 4.4 MMOL/L (3.5-5.1) Chloride Level 106 MMOL/L (98-107) Carbon Dioxide Level 20 MMOL/L (21-32) L Anion Gap 9 mmol/L (5-15) Blood Urea Nitrogen 16 mg/dL (7-18) Creatinine 1.5 MG/DL (0.55-1.30) H Estimat Glomerular Filtration Rate 58.3 mL/min (>60) Glucose Level 89 MG/DL (74-106) Calcium Level 8.1 MG/DL (8.5-10.1) L Magnesium Level 1.9 MG/DL (1.8-2.4) Total Bilirubin 1.6 MG/DL (0.2-1.0) H Direct Bilirubin 0.9 MG/DL (0.0-0.3) H Aspartate Amino Transf (AST/SGOT) 101 U/L (15-37) H Alanine Aminotransferase (ALT/SGPT) 26 U/L (12-78) Alkaline Phosphatase 138 U/L (46-116) H Total Protein 7.9 G/DL (6.4-8.2) Albumin 1.4 G/DL (3.4-5.0) L Globulin 6.5 g/dL Albumin/Globulin Ratio 0.2 (1.0-2.7) L Current Medications Medications (Trade) Dose Ordered Sig/Josesito Route PRN Reason Start Time Stop Time Status Last Admin Dose Admin Acetaminophen (Tylenol) 650 mg Q4H PRN ORAL Mild Pain/Temp > 100.5 01/09/18 02:30 02/08/18 02:29 01/12/18 20:34 Acetaminophen/ Hydrocodone Bitart ([place] 5/325) 1 tab Q4H PRN ORAL Moderate Pain (Pain Scale 4-6) 01/12/18 22:45 01/19/18 22:44 01/13/18 01:51 Acetaminophen/ Hydrocodone Bitart ([place] 5/325) 2 tab Q4H PRN ORAL Severe Pain (Pain Scale 7-10) 01/12/18 22:45 01/19/18 22:44 01/13/18 22:27 Amlodipine Besylate (Norvasc) 5 mg DAILY ORAL 01/14/18 09:00 02/13/18 08:59 01/14/18 08:34 Aspirin (ASA) 81 mg DAILY ORAL 01/09/18 09:00 02/08/18 08:59 01/14/18 08:32 Azithromycin (Zithromax) 500 mg DAILY ORAL 01/09/18 06:00 01/16/18 05:59 01/14/18 08:32 Carisoprodol (Soma) 350 mg THREE TIMES A DAY ORAL 01/09/18 09:00 02/08/18 08:59 01/14/18 08:33 Ceftriaxone Sodium 1 gm/ Dextrose 55 ml @ 110 mls/hr Q24H IVPB 01/09/18 09:00 01/16/18 08:59 01/14/18 08:34 Gabapentin (Neurontin) 600 mg THREE TIMES A DAY ORAL 01/09/18 09:00 02/08/18 08:59 01/14/18 08:32 Heparin Sodium (Porcine) (Heparin 5000 units/ml) 5,000 units EVERY 8 HOURS SUBQ 01/14/18 14:00 02/13/18 13:59 Metronidazole (Flagyl) 500 mg Q8H ORAL 01/10/18 10:00 01/17/18 09:59 01/14/18 09:22 Ondansetron HCl (Zofran ODT) 4 mg Q6H PRN ORAL Nausea & Vomiting 01/09/18 02:30 02/08/18 02:29 Pantoprazole (Protonix) 40 mg BID ORAL 01/11/18 09:00 02/10/18 08:59 01/14/18 08:32 Phenyleph/Shark Oil/Glycerin/ Petrol (Preparation H) 1 applic Q12HR RECTAL 01/10/18 09:00 02/09/18 08:59 01/13/18 20:23 Sodium Chloride 1,000 ml @ 125 mls/hr Q8H IV 01/13/18 08:55 02/12/18 08:54 01/14/18 08:34 Tamsulosin HCl (Flomax) 0.4 mg BEDTIME ORAL 01/09/18 21:00 02/08/18 20:59 01/13/18 20:23 Pepito Barboza MD Jan 14, 2018 12:49
[2018-01-14] MEDS ORDERED: Heparin 5000 units/ml inj SUBQ SCH (14:00)
--- NOTE | 2018-01-14 15:26 | Consultation ---
History of Present Illness General Date patient seen: Jan 14, 2018 Chief Complaint: Chest Pain Reason for Consultation: large prolapsed hemorrhoids Present Illness HPI 57-year-old very pleasant man who is admitted to the hospital for right-sided chest pain. The patient was noted to have some bilateral infiltrates and was admitted to the hospital for care and management. On admission he had also complained of a five-day history of diarrhea with some bits of blood in the stools. He also was noted to have a distended abdomen and some abnormal liver tests. He was scheduled for an EGD and Colonoscopy today with GI service. During colonoscopy noted to have large prolapsed hemorrhoids. Surgery called to evaluate. patient seen, chart reviewed, patient examined. States diarrhea from prep and at times has incontinence. Does not know about hemorrhoids and does not remember if any prior. of note, heavy etoh history. Allergies: Coded Allergies: No Known Allergies (Unverified , 11/16/14) Medication History Scheduled Amlodipine Besylate* (Amlodipine Besylate*), 10 MG ORAL DAILY, (Reported) Aspirin* (Aspir 81*), 81 MG ORAL DAILY, (Reported) Carisoprodol* (Soma*), Unknown Dose PO Q6H, (Reported) Gabapentin* (Gabapentin*), 600 MG ORAL THREE TIMES A DAY, (Reported) Hydrochlorothiazide* (Hydrochlorothiazide*), 25 MG ORAL DAILY, (Reported) Trimethoprim/Sulfamethoxazole 160/800* (Bactrim Ds Tablet*), 1 TAB ORAL Q12H Scheduled PRN Hydrocodone Bit/Acetaminophen 10-325* ([place] 10-325*), 1 TAB ORAL Q4H PRN for For Pain, (Reported) Discontinued Medications Gabapentin* (Gabapentin*), 300 MG ORAL THREE TIMES A DAY, (Reported) Discontinued Reason: Prescription changed Patient History Limited by: medical condition History Provided By: Patient, Medical Record, PMD Healthcare decision maker Resuscitation status Full Code Advanced Directive on File Past Medical/Surgical History Past Medical/Surgical History: (1) Spinal stenosis in cervical region (2) Weakness (3) Chest pain (4) Pneumonia (5) ACS (acute coronary syndrome) (6) BPH with obstruction/lower urinary tract symptoms Review of Systems All Other Systems: negative except mentioned in HPI Physical Exam General Appearance: no apparent distress, alert Lines, tubes and drains: peripheral HEENT: atraumatic, mucous membranes moist Neck: normal inspection Respiratory/Chest: normal breath sounds, no respiratory distress Cardiovascular/Chest: normal rate, regular rhythm Abdomen: normal bowel sounds, soft, no organomegaly, no mass Genitourinary/Rectal: decreased rectal tone, other - large almost concentric prolapsed hemorrhoids vs possible early prolapse colon. no bleeding. decreased tone. Extremities: normal inspection Skin Exam: warm/dry Neurologic: alert, responsive Last 24 Hour Vital Signs Date Time Temp Pulse Resp B/P (MAP) Pulse Ox O2 Delivery O2 Flow Rate FiO2 01/14/18 12:10 97.8 99 21 100/62 99 Nasal Cannula 3 01/14/18 12:06 100 12 98 01/14/18 12:01 99 23 93/70 98 Simple Mask 6 01/14/18 11:56 98 19 95/67 98 Simple Mask 6 01/14/18 11:51 97.2 100 12 99/63 98 Simple Mask 6 01/14/18 09:03 97.1 01/14/18 09:00 Nasal Cannula 2.0 01/14/18 08:34 102 101/68 01/14/18 08:06 Room Air 21 01/14/18 08:06 81 16 Room Air 21 01/14/18 08:06 95 Room Air 21 01/14/18 08:00 98.0 102 18 101/68 (79) 98 01/14/18 08:00 103 01/14/18 04:00 101 01/14/18 04:00 97.1 99 18 132/75 (94) 98 01/14/18 00:00 97 01/14/18 00:00 97.4 100 19 122/69 (86) 97 01/13/18 21:00 Nasal Cannula 2.0 01/13/18 20:37 96 Room Air 2.0 21 01/13/18 20:37 Room Air 21 01/13/18 20:37 99 16 Room Air 21 01/13/18 20:00 97.1 98 18 117/71 (86) 96 01/13/18 20:00 98 01/13/18 16:08 97.3 104 20 104/69 (81) 100 01/13/18 16:00 104 Intake and Output 01/13/18 01/14/18 19:00 07:00 Intake Total 420 ml 750 ml Output Total 200 ml Balance 220 ml 750 ml Intake Oral 420 ml IV Total 750 ml Output Urine Total 200 ml # Voids 3 # Bowel Movements 7 6 Laboratory Tests Test 01/14/18 06:25 White Blood Count 16.5 K/UL (4.8-10.8) H Red Blood Count 2.71 M/UL (4.70-6.10) L Hemoglobin 8.1 G/DL (14.2-18.0) L Hematocrit 25.0 % (42.0-52.0) L Mean Corpuscular Volume 92 FL (80-99) Mean Corpuscular Hemoglobin 29.8 PG (27.0-31.0) Mean Corpuscular Hemoglobin Concent 32.3 G/DL (32.0-36.0) Red Cell Distribution Width 14.1 % (11.6-14.8) Platelet Count 208 K/UL (150-450) Mean Platelet Volume 5.5 FL (6.5-10.1) L Neutrophils (%) (Auto) 77.8 % (45.0-75.0) H Lymphocytes (%) (Auto) 7.4 % (20.0-45.0) L Monocytes (%) (Auto) 8.4 % (1.0-10.0) Eosinophils (%) (Auto) 4.4 % (0.0-3.0) H Basophils (%) (Auto) 2.0 % (0.0-2.0) Prothrombin Time 15.8 SEC (9.30-11.50) H Prothromb Time International Ratio 1.5 (0.9-1.1) H Sodium Level 135 MMOL/L (136-145) L Potassium Level 4.4 MMOL/L (3.5-5.1) Chloride Level 106 MMOL/L (98-107) Carbon Dioxide Level 20 MMOL/L (21-32) L Anion Gap 9 mmol/L (5-15) Blood Urea Nitrogen 16 mg/dL (7-18) Creatinine 1.5 MG/DL (0.55-1.30) H Estimat Glomerular Filtration Rate 58.3 mL/min (>60) Glucose Level 89 MG/DL (74-106) Calcium Level 8.1 MG/DL (8.5-10.1) L Magnesium Level 1.9 MG/DL (1.8-2.4) Total Bilirubin 1.6 MG/DL (0.2-1.0) H Direct Bilirubin 0.9 MG/DL (0.0-0.3) H Aspartate Amino Transf (AST/SGOT) 101 U/L (15-37) H Alanine Aminotransferase (ALT/SGPT) 26 U/L (12-78) Alkaline Phosphatase 138 U/L (46-116) H Total Protein 7.9 G/DL (6.4-8.2) Albumin 1.4 G/DL (3.4-5.0) L Globulin 6.5 g/dL Albumin/Globulin Ratio 0.2 (1.0-2.7) L Height (Feet): 5 Height (Inches): 5.00 Weight (Pounds): 170 Medications Current Medications Medications (Trade) Dose Ordered Sig/Josesito Route PRN Reason Start Time Stop Time Status Last Admin Dose Admin Acetaminophen (Tylenol) 650 mg Q4H PRN ORAL Mild Pain/Temp > 100.5 01/09/18 02:30 02/08/18 02:29 01/12/18 20:34 Acetaminophen/ Hydrocodone Bitart ([place] 5/325) 1 tab Q4H PRN ORAL Moderate Pain (Pain Scale 4-6) 01/12/18 22:45 01/19/18 22:44 01/13/18 01:51 Acetaminophen/ Hydrocodone Bitart ([place] 5/325) 2 tab Q4H PRN ORAL Severe Pain (Pain Scale 7-10) 01/12/18 22:45 01/19/18 22:44 01/13/18 22:27 Amlodipine Besylate (Norvasc) 5 mg DAILY ORAL 01/14/18 09:00 02/13/18 08:59 01/14/18 08:34 Aspirin (ASA) 81 mg DAILY ORAL 01/09/18 09:00 02/08/18 08:59 01/14/18 08:32 Azithromycin (Zithromax) 500 mg DAILY ORAL 01/09/18 06:00 01/16/18 05:59 01/14/18 08:32 Carisoprodol (Soma) 350 mg THREE TIMES A DAY ORAL 01/09/18 09:00 02/08/18 08:59 01/14/18 13:32 Finasteride (Proscar) 5 mg DAILY ORAL 01/15/18 09:00 02/14/18 08:59 Gabapentin (Neurontin) 600 mg THREE TIMES A DAY ORAL 01/09/18 09:00 02/08/18 08:59 01/14/18 13:32 Heparin Sodium (Porcine) (Heparin 5000 units/ml) 5,000 units EVERY 8 HOURS SUBQ 01/14/18 14:00 02/13/18 13:59 Ondansetron HCl (Zofran ODT) 4 mg Q6H PRN ORAL Nausea & Vomiting 01/09/18 02:30 02/08/18 02:29 Pantoprazole (Protonix) 40 mg BID ORAL 01/11/18 09:00 02/10/18 08:59 01/14/18 08:32 Phenyleph/Shark Oil/Glycerin/ Petrol (Preparation H) 1 applic Q12HR RECTAL 01/10/18 09:00 02/09/18 08:59 01/13/18 20:23 Sodium Chloride 1,000 ml @ 125 mls/hr Q8H IV 01/13/18 08:55 02/12/18 08:54 01/14/18 08:34 Tamsulosin HCl (Flomax) 0.8 mg BEDTIME ORAL 01/14/18 21:00 02/08/18 20:59 Assessment/Plan Problem List: (1) Grade IV internal hemorrhoids Assessment & Plan: weak rectal sphincter muscles large prolapsed almost circumferential hemorrhoids. cannot reduce. does have fair amount of edema. could almost be mistaken for rectal prolapse. no bleeding no thrombosis non tender no acute surgical intervention necessary discussed findings with patient will follow up as outpatient for care and management of hemorrhoids avoid constipation thank you for allowing me to participate in care will follow while in hospital. ICD Codes: K64.3 - Fourth degree hemorrhoids SNOMED: [id number] Status: stable Javier Macias Jan 14, 2018 15:25
--- NOTE | 2018-01-14 17:00 | Operative Note - Dictated ---
DATE OF OPERATION: 01/14/2018 GASTROENTEROLOGY PROCEDURE REPORT PROCEDURE: Upper gastrointestinal endoscopy with biopsy as well as colonoscopy. SURGEON: Nadia Prado M.D. ANESTHESIA: Please see the separate anesthesiologist notes for details. PRE-ENDOSCOPIC DIAGNOSES: 1. Rectal bleeding. 2. Anemia. 3. Cirrhosis. POST-ENDOSCOPIC DIAGNOSES: 1. Mild esophageal varices. 2. Erosive gastritis. Status post biopsy. 3. Large prolapse hemorrhoids. 4. Mild diverticulosis. DESCRIPTION OF PROCEDURE: The procedure, its risks, indications, alternatives, and possible complications including, but not limited to, bleeding, infection, perforation, , and anesthesia complications were explained to the patient and an informed consent was obtained. The patient was then sedated in the left lateral decubitus position. A diagnostic upper endoscope was introduced through the oropharynx and advanced to the duodenum. Mild esophageal varices were seen and in the stomach, there was some mild erosive gastritis. One biopsy of the antrum was sent to pathology and a diagnostic upper endoscope was introduced into the oropharynx and advanced to the duodenum. The endoscope was then gradually withdrawn and the mucosa examined carefully. Examination of the upper gastrointestinal mucosa revealed mild esophageal varices as well as erosive gastritis. A single biopsy of the antrum was sent to pathology for review. Because of some oozing of blood, 1 mg of epinephrine was applied diluted in 10 mL . Hemostasis achieved and the fluid in the stomach was suctioned back up. The endoscope was removed. The rectal exam was done. The rectal exam showed large circumferentially prolapsed hemorrhoids, which are probably internal or probably external. This could not be reduced. The colonoscope was introduced into the rectum and advanced to the cecum. The cecum was identified by the appearance of the ileocecal valve and the appendiceal orifice. The colonoscope was then gradually withdrawn and the mucosa examined carefully. Examination of colonic mucosa revealed mild diverticulosis. About 10% coverage of the mucosa with solid stool. The colonoscope was removed and the patient was sent to recovery in good condition. COMPLICATIONS: None. ASSESSMENT: This patient's rectal bleeding is due to significant hemorrhoidal disease. The colorectal surgery option. We will evaluate options. Since the patient does have mild esophageal varices, the possibility of rectal varix should also be considered. RECOMMENDATIONS: 1. Follow up biopsy results. 2. Resume oral diet. 3. Long-term bowel regimen. 4. Colorectal surgery evaluation. Nadia Prado M.D. DR: SANCHEZ JOB#: [id number] CC:
[2018-01-14] MEDS ORDERED: Tamsulosin 0.4mg cap ORAL SCH (21:00)
--- NOTE | 2018-01-14 21:35 | Endoscopy Procedure Note ---
Endoscopy Procedure Note General Indication for Procedure: gib Procedures Performed: EGD, colonoscopy Operative Findings/Diagnosis: mild Vx, thaddeus/bx, large Rhoids Pt Tolerated Procedure Well: Yes Estimated Blood Loss: minimal Anesthesia Anesthesiologist: see report Anesthesia: MAC Medications Medication Given: see anesthesia record Inserted Devices Implant(s) used?: No GI Core Measures 50 yrs or older w/o bx or poly: Not Applicable 10yrs. F/U not recommended: Not Applicable If not recommended, why?: Nadia Prado MD Jan 14, 2018 21:35
--- NOTE | 2018-01-14 21:38 | Brief Operative Note ---
Immediate Post Operative Note Operative Note Chief Complaint: BRB Pre-op Diagnosis: Anemia Rectal bleeding Procedure: E/Bx/Hemo, C Post-op Diagnosis: Sharon, Vx, Rhoid Surgeon: natty Specimen: none Complications: none Condition: unstable Fluids: recorded Implant(s) used?: No Nadia Prado MD Jan 14, 2018 21:38
--- NOTE | 2018-01-14 23:15 | Consultation ---
DATE OF CONSULTATION: 01/14/2018 UROLOGY CONSULTATION ATTENDING/ PHYSICIAN: Warren Cardoza M.D. CHIEF COMPLAINT AND HISTORY OF PRESENT ILLNESS: I was asked by Dr. Cardoza to evaluate this very pleasant 57-year-old gentleman regarding history of urinary retention. Briefly, the patient does not have significant baseline urinary history. He reports a moderate force of stream and going to urinate once or twice at night. He presented to the hospital with right-sided chest pain and bilateral infiltrates. He also has history of gastrointestinal bleeding which is being evaluated. A Peterson catheter was placed and I was asked to evaluate the patient. PAST MEDICAL HISTORY: 1. Hypertension. 2. Renal insufficiency. 3. Pneumonia. 4. Neuropathy. 5. Chronic pain. MEDICATIONS: Please see the chart for current medications and administration details. ALLERGIES: No known drug allergies. SOCIAL HISTORY: Unremarkable for tobacco, alcohol, or drug use. FAMILY HISTORY: Notable for hypertension, diabetes, and renal failure. REVIEW OF SYSTEMS: A 14-system review of systems essentially unremarkable outside what was described above. PHYSICAL EXAMINATION: GENERAL: The patient is an older gentleman, awake and alert, oriented x4, pleasant, no obvious distress. HEENT: NC/AT. EOMI. NECK: Supple. Full range of motion. Oropharynx clear. CHEST: Within normal limits. ABDOMEN: Soft, nontender, nondistended. EXTREMITIES: Warm and well perfused. EXTREMITIES: No cyanosis, clubbing, or edema. BACK: No CVA tenderness to percussion. NEUROLOGIC: Grossly nonfocal. GENITOURINARY: Reveals a normal male phallus with Peterson catheter in place with clear yellow urine output. There are bilateral descended testes and cord structures with no masses or tenderness to palpation. LABORATORY DATA: White blood cell count 16.5, hematocrit 25, platelets 208. Sodium 135, potassium 4.4, chloride 106, bicarbonate 20, BUN 16, creatinine 1.5, glucose 89, calcium 8.1. LFTs notable for AST of 101, alkaline phosphatase 138. PT at 15.8, INR 1.5. DIAGNOSTIC IMAGING: Abdominal ultrasound reveals distended urinary bladder on 01/11/2018. There is suspicion of chronic liver disease with nodularity of surface, fatty infiltration and enlargement of the liver, prostate enlargement, there are bilateral renal cysts. ASSESSMENT AND PLAN: The patient is a 57-year-old gentleman presenting with chest pain, bilateral pneumonia, and evidence of GI bleed. He has increased coagulation times. Ultrasound reveals evidence of nodular enlarged liver worrisome for cirrhosis. Additionally, the patient has developed urinary retention and physical exam reveals a Peterson catheter in place with clear yellow urine output. Laboratory data is notable for elevated coagulation times as noted above. Discussed these findings today with the patient at bedside. I have already started on Flomax 0.8 mg p.o. at bedtime and finasteride 5 mg p.o. at bedtime in an effort to improve his voiding. We will take his Peterson catheter out tomorrow to see if he can urinate without it. The patient can follow up with me as an outpatient regarding the same as well. Thank you for allowing me to participate in the care of this unfortunate gentleman. Please do not hesitate to contact me with questions that you may further have regarding his care. I will continue to see him with you as needed. Melquiades Yates M.D. DR: Christopher JOB#: [id number] CC:
--- NOTE | 2018-01-15 01:00 | Progress Note ---
DATE: 01/14/2018 SUBJECTIVE: The patient is status post panendoscopy. Findings notable for large hemorrhoids, mild varices in the esophagus, and gastritis. No active bleeding. Monitor sinus and sinus tachycardia. OBJECTIVE: VITAL SIGNS: Blood pressure 132/75, pulse 99, respirations 18, oxygen sats on room air 96%, and afebrile. LUNGS: Diminished breath sounds. No wheezing. Few rhonchi. HEART: Regular rhythm and rate. Normal S1, S2 with a fourth heart sound. ABDOMEN: Soft, slightly distended, but nontender. EXTREMITIES: With no edema. IMPRESSION: 1. Pleuritic chest pain. 2. Secondary sinus tachycardia. 3. Sepsis due to community-acquired pneumonia. 4. Severe protein-calorie malnutrition. 5. Resolved lactic acidosis. 6. Cirrhosis with portal hypertension and varices as well as hemorrhoids. RECOMMENDATIONS: 1. Consider low-dose beta-heather in view of gastrointestinal findings. 2. No anti-platelet or anticoagulant therapy at this time. 3. Stable for custodial facility level of care from cardiovascular standpoint. Adriel Guerrero M.D. DR: JUAN C JOB#: [id number] CC:
[2018-01-15 10:37] VITALS: BP 108/52
--- NOTE | 2018-01-15 10:37 | 48 Hour Post Anesthesia Eval ---
Post Anesthesia Evaluation Procedure: Diagnostic EGD & colonoscopy Date of Evaluation: Jan 14, 2018 Time of Evaluation: 16:00 Blood Pressure Systolic: 108 0: 52 Pulse Rate: 107 Respiratory Rate: 20 Temperature (Fahrenheit): 97.8 O2 Sat by Pulse Oximetry: 99 Airway: patent Nausea: No Vomiting: No Pain Intensity: 0 Hydration Status: adequate Cardiopulmonary Status: stable Mental Status/LOC: patient returned to baseline Follow-up Care/Observations: per hospitalist Post-Anesthesia Complications: none Follow-up care needed: N/A Leila Hastings CRNA Jan 15, 2018 10:37
--- NOTE | 2018-01-15 14:48 | Discharge Summary ---
Discharge Summary Discharge Summary _ DATE OF ADMISSION: 01/08/2018 DATE OF DISCHARGE: 01/14/2018 CONSULTANTS: Dr. Nadia Yates BRIEF HOSPITAL COURSE: Patient is a 57-year-old male, who presented to ED with complaints of right- sided chest pain. Symptoms had been ongoing for the past 1-2 days. Pain was 6 out of 10, described to be heavy and sharp. He had a previous neck surgery and had progressive trigger finger on the right side. He has history of neuropathy and has been on Neurontin. He denied any vomiting. Denied any diarrhea. On evaluation at ED, blood pressure was 134/83, pulse rate 105, O2 saturation 97 % on room air. Blood work showed markedly elevated WBC to 20. Hemoglobin 8.9, hematocrit 26, platelet was normal. Lactic acid 2.2. Potassium level was 2.2. Total bilirubin 1.7, direct bilirubin 1.1, AST 97, alkaline phosphatase 129. Albumin was 1.2. Troponin was negative. He had a chest x-ray that showed by basilar atelectasis/infiltrates. He was admitted for evaluation of chest pain, pneumonia and azotemia. He was started on IV hydration and IV antibiotics. He was placed on subcutaneous heparin for DVT prophylaxis. He was given respiratory support and bronchodilators. He was placed on fluid restriction 1.5 L per day. He was followed by bariatric nurse. Cardiac enzymes were monitored. He was given antiplatelet therapy. He complained of 5 day history of diarrhea with some blood in the stools. He was noted to have distended abdomen and admitted to drinking about 6 pack of beer for about 30+ years. He was never diagnosed with any liver disease or cirrhosis and never had endoscopy or colonoscopy done. Stool C. difficile was negative. Stool ova and parasite negative . Abdominal x-ray showed was relatively nondiagnostic study due to absence of bowel gas. Abdominal ultrasound showed suspicion of chronic liver disease with nodularity of the liver surface, fatty infiltration and enlargement of liver. Doppler evaluation was suggestive of portal hypertension. Spleen not enlarged. Mild ascites noted. He had prostate enlargement and distended urinary bladder. Patient had hyponatremia, most likely secondary to being on hypotonic solution was on hydrochlorothiazide in combination with possibility of SIADH from underlying pneumonia. IV fluid was changed to isotonic solution. Hydrochlorothiazide was discontinued. He was given potassium replacement. There was a drop in hemoglobin to 7.5. Hematocrit 23. INR was elevated to 1.7. He was given vitamin K. He was still having diarrhea, however, improved. Patient was cleared to undergo diagnostic panendoscopy. Patient was started on ceftriaxone, azithromycin, Flagyl and vancomycin. ID specialist was consulted. He was continued on ceftriaxone and Flagyl. Patient was positive for mycoplasma. He was placed on droplet isolation. Legionella antigen negative. Rocephin and Flagyl was discontinued. He was continued on Zithromax. On 01/14/2018, he underwent upper gastrointestinal intestinal endoscopy as well as colonoscopy. Findings showed mild esophageal varices. Erosive gastritis, status post biopsy. Large prolapsed hemorrhoids. Mild diverticulosis. Surgery was called to evaluate. Patient had a large prolapsed almost circumferential hemorrhoids. Unable to be reduced. There was fair amount of edema. Could almost be mistaken for rectal prolapse. There was no bleeding, no thrombosis and nontender. Findings were discussed with patient. There was no acute surgical intervention necessary. He was advised outpatient care and management of hemorrhoids. He was also noted to have urinary retention based on ultrasound findings. Patient was monitored for urinary retention. Peterson catheter was eventually inserted. Urologist was consulted. He was started on Flomax and finasteride. Troponin remained negative. Chest pain was pleuritic. Leukocytosis down trended. Patient was discharged to SNF. FINAL DIAGNOSES: . Pleuritic chest pain Secondary sinus tachycardia Sepsis due to community-acquired pneumonia Severe protein calorie malnutrition Resolved lactic acidosis Cirrhosis with portal hypertension and esophageal varices Urinary retention Erosive gastritis status post biopsy Large prolapsed hemorrhoids Mild diverticulosis Anemia Diarrhea GI bleed, rectal bleeding Excessive EtOH use EtOH hepatitis with mild hyperbilirubinemia s/p EGD and Colonoscopy DISPOSITION: [facility] I have been assigned to dictate discharge summary on this account, and I was not involved in the patient's management. Samia Cotter NP Jan 15, 2018 14:48
== END 2018-01-14 20:10 | DRG 871 ==
LOC: EDBD 21:33 → EMR 21:49 → 2E 22:22 → EDBEDREQ 23:04
PROC: 30233N1 Transfusion of Nonautologous Red Blood Cells into Peripheral Vein, Percutaneous Approach (ICD-10-PCS; principal; 2018-01-11)
PROC: 0DB78ZX Excision of Stomach, Pylorus, Via Natural or Artificial Opening Endoscopic, Diagnostic (ICD-10-PCS; 2018-01-14 10:40)
PROC: 0DJD8ZZ Inspection of Lower Intestinal Tract, Via Natural or Artificial Opening Endoscopic (ICD-10-PCS; 2018-01-14 10:40)
DX: A41.9 Sepsis, unspecified organism (principal); J15.7 Pneumonia due to Mycoplasma pneumoniae; E43 Unspecified severe protein-calorie malnutrition; K76.6 Portal hypertension; I85.10 Secondary esophageal varices without bleeding; K92.2 Gastrointestinal hemorrhage, unspecified; N17.9 Acute kidney failure, unspecified; D62 Acute posthemorrhagic anemia; E22.2 Syndrome of inappropriate secretion of antidiuretic hormone; K64.3 Fourth degree hemorrhoids; R33.9 Retention of urine, unspecified; K57.90 Diverticulosis of intestine, part unspecified, without perforation or abscess without bleeding; D64.9 Anemia, unspecified; R19.7 Diarrhea, unspecified; K70.30 Alcoholic cirrhosis of liver without ascites; F10.10 Alcohol abuse, uncomplicated; M65.30 Trigger finger, unspecified finger; B96.0 Mycoplasma pneumoniae [M. pneumoniae] as the cause of diseases classified elsewhere; F17.200 Nicotine dependence, unspecified, uncomplicated; Z98.1 Arthrodesis status; G62.9 Polyneuropathy, unspecified; E87.6 Hypokalemia; N40.1 Benign prostatic hyperplasia with lower urinary tract symptoms; R33.8 Other retention of urine; G89.29 Other chronic pain; R07.81 Pleurodynia; I12.9 Hypertensive chronic kidney disease with stage 1 through stage 4 chronic kidney disease, or unspecified chronic kidney disease; N18.9 Chronic kidney disease, unspecified; N13.9 Obstructive and reflux uropathy, unspecified; K70.10 Alcoholic hepatitis without ascites
CPT/HCPCS: 36415; 71045; 74018; 76700; 80048; 80053; 82105; 82150; 82248; 82270; 82550; 82553; 83540; 83550; 83605; 83690; 83735; 84484; 85007; 85025; 85610; 86705; 86709; 86713; 86738; 86803; 86850; 86870; 86900; 86901; 86920; 87040; 87045; 87070; 87181; 87205; 87324; 87340; 93005; 94003; 94150; 94664; 94760; 96361; 96365; 96367; 96375; 99285; J0171; J2370; J2405; J8499

== ENCOUNTER 2018-01-26 12:22 | Observation (INO) | payer MEDICARE, OTHER ==
[~2018-01-26] VITALS: Ht 172.7 cm; Wt 87.1 kg
[~2018-01-26 12:22] MED LIST changes: +GABAPENTIN600 MG ORAL
[2018-01-26] MEDS ORDERED: NORVASC5 MG ORAL (16:24)
[2018-01-26] MEDS ORDERED: IPRATROPIU0.2 MG/1 M HHN (16:24)
[2018-01-26] MEDS ORDERED: ARTIFICIAL TEA1 EAC2 OP (16:24)
[2018-01-26] MEDS ORDERED: NORCO 5-325 TA1 EACH ORAL (16:24)
[2018-01-26] MEDS ORDERED: EPOGEN10000 UNIT SUBQ (16:24)
[2018-01-26] MEDS ORDERED: FERROUSUL325 M1 PO (16:24)
[2018-01-26] MEDS ORDERED: PANTOPRAZOLE SO40 MG ORAL (16:24)
[2018-01-26] MEDS ORDERED: ZOFRAN ODT8 MG ORAL (16:24)
[2018-01-26] MEDS ORDERED: TAMSULOSIN HCL0.4 MG ORAL (16:24)
[2018-01-26] MEDS ORDERED: CARISOPRODOL350 MG ORAL (16:24)
[2018-01-26] MEDS ORDERED: FINASTERIDE1 MG PO (16:24)
[2018-01-26] MEDS ORDERED: ACETAMINOPHEN325 M1 ORAL (16:24)
[2018-01-26 16:33] VITALS: BP 108/72
[2018-01-26] MEDS ORDERED: Ipratropium 0.02% Inh Soln 2.5ml UD HHN PRN (18:00)
[2018-01-26 20:00] VITALS: BP 124/76
[2018-01-26] MEDS ORDERED: Dyna-Hex 2% Top Sol 2oz TOPIC SCH (20:00)
[2018-01-26] MEDS ORDERED: Tamsulosin 0.4mg cap ORAL SCH (21:00)
[2018-01-26] MEDS: Norco 5mg/325mg tab ORAL PRN (21:40)
--- NOTE | 2018-01-26 21:50 | History & Physical ---
History and Physical History & Physicial 57 year old patient noted to have worsening anemia and rectal bleeding and admitted for transfusion. Patient was unable to be discharged to home and was sent to SNF. Patient otherwise weak and trying to rehabilitate Findings noted and reviewed. no fevers or chills. some rectal bleeding noted. no falls. care reviewed and discussed medical follow up noted and reviewed PMH Pleuritic chest pain Secondary sinus tachycardia Sepsis due to community-acquired pneumonia Severe protein calorie malnutrition Resolved lactic acidosis Cirrhosis with portal hypertension and esophageal varices Urinary retention Erosive gastritis status post biopsy Large prolapsed hemorrhoids Mild diverticulosis Anemia Diarrhea GI bleed, rectal bleeding Excessive EtOH use EtOH hepatitis with mild hyperbilirubinemia s/p EGD and Colonoscopy MEDS/ALLERGIES noted PHYSICAL WDWN NAD clear breath sounds bilaterally without rhonchi or wheeze [id number] without MRG NABS nontender no HSM no CCE nonfocal weak IMPRESSION anemia rectal bleeding GIB ETOH failure to thrive recent colonscopy hemorrhoids PLAN transfuse patient refusing to return may need to be placed at alterantive SNF or home resume meds hold aspirin iron and epogen impression, plan, and exam edited and reviewed in detail care discussed with Warren Mitchell MD Jan 26, 2018 21:49
--- NOTE | 2018-01-26 21:50 | General Progress Note ---
Subjective Allergies: Coded Allergies: No Known Allergies (Unverified , 11/16/14) Objective Last 24 Hour Vital Signs Date Time Temp Pulse Resp B/P (MAP) Pulse Ox O2 Delivery O2 Flow Rate FiO2 01/26/18 20:01 96 18 Room Air 21 01/26/18 16:39 Nasal Cannula 2.0 01/26/18 16:33 98.7 94 20 108/72 (84) 98 Height (Feet): 5 Height (Inches): 8.00 Weight (Pounds): 174 Warren Cardoza MD Jan 26, 2018 21:50
[2018-01-27] VITALS: BP 117/72
[2018-01-27 04:00] VITALS: BP 126/73
--- NOTE | 2018-01-27 04:16 | Consultation ---
DATE OF CONSULTATION: 01/26/2018 CARDIOLOGY CONSULT CONSULTING PHYSICIAN: Adriel Guerrero M.D. REQUESTING PHYSICIAN: Warren Cardoza M.D. REASON FOR CONSULTATION: Tachycardia. HISTORY OF PRESENT ILLNESS: This is a 57-year-old male. He has been admitted to the hospital because of worsening anemia due to rectal bleeding. He was hospitalized here about a week ago and had chest pain that was felt to be pleuritic. He also was noted to have sinus tachycardia. It was felt to be secondary to his current comorbidities. He did have a GI workup that was notable for erosive gastritis, hemorrhoids, and diverticulosis. He has a history of alcohol abuse and alcoholic liver disease. He was noted also to have varices. PAST MEDICAL HISTORY: 1. History of lactic acidosis. 2. Cirrhosis. 3. Alcoholic liver disease. 4. Portal hypertension. 5. Esophageal varices. 6. Prostatic hypertrophy. 7. History of urinary retention. 8. Protein-calorie malnutrition. 9. Recent pneumonia with sepsis. SOCIAL HISTORY: He is noted with alcohol abuse. No active smoking or substance abuse. FAMILY HISTORY: Noncontributory. MEDICATIONS: Reviewed and reconciled. REVIEW OF SYSTEMS: Otherwise as noted above. IMAGING DATA: He did have an echocardiogram during his recent hospital stay that revealed normal ejection fraction with concentric hypertrophy with no significant valvular disease. PHYSICAL EXAMINATION: VITAL SIGNS: Blood pressure 111/60, pulse 102, respirations 18, and afebrile. NECK: Supple. Jugular venous pressure normal. LUNGS: Clear. CARDIAC: Regular rhythm. Rapid rate. Normal S1 and S2 with a fourth heart sound. ABDOMEN: Soft and nontender. EXTREMITIES: No edema. LABORATORY DATA: Reviewed. Adriel Guerrero M.D. DR: KRYSTINA JOB#: [id number] CC:
[2018-01-27] MEDS: Norco 5mg/325mg tab ORAL PRN (04:28)
[2018-01-27] MEDS ORDERED: Heparin 2000 units/Ns 1000ml INJ PRN (06:00)
[2018-01-27 06:31] LABS: HEMATOCRIT 23.7 % (42.0-52.0); HEMOGLOBIN 7.5 G/DL (14.2-18.0); MEAN CORPUSCULAR VOLUME 91 FL (80-99); PLATELET COUNT 284 K/UL (150-450); RED BLOOD COUNT 2.62 M/UL (4.70-6.10); RED CELL DISTRIBUTION WIDTH 14.2 % (11.6-14.8); WHITE BLOOD COUNT 16.4 K/UL (4.8-10.8)
[2018-01-27 08:00] VITALS: BP 125/73
[2018-01-27] MEDS ORDERED: Lidocaine 1% Plain 30 ml INJ PRN (08:00)
[2018-01-27] MEDS ORDERED: Propranolol 40mg tab ORAL SCH (09:00)
[2018-01-27 10:00] VITALS: BP 125/73
--- NOTE | 2018-01-27 10:18 | General Progress Note ---
Assessment/Plan Assessment/Plan IMPRESSION anemia rectal bleeding GIB ETOH failure to thrive recent colonscopy hemorrhoids PLAN transfuse today PICC today patient agrees to return continue meds hold aspirin iron and epogen impression, plan, and exam edited and reviewed in detail care discussed with RN Subjective Allergies: Coded Allergies: No Known Allergies (Unverified , 11/16/14) Subjective agrees to return to snf agrees to PICC awaiting transfusion Objective Last 24 Hour Vital Signs Date Time Temp Pulse Resp B/P (MAP) Pulse Ox O2 Delivery O2 Flow Rate FiO2 01/27/18 10:00 98.1 94 13 125/73 (90) 96 01/27/18 04:00 97.5 104 19 126/73 (90) 93 01/27/18 00:00 97.0 102 20 117/72 (87) 97 01/26/18 21:00 Nasal Cannula 2.0 01/26/18 20:01 96 18 Room Air 21 01/26/18 20:00 98.2 98 18 124/76 (92) 95 01/26/18 16:39 Nasal Cannula 2.0 01/26/18 16:33 98.7 94 20 108/72 (84) 98 Intake and Output 01/26/18 01/27/18 19:00 07:00 Intake Total 240 ml Balance 240 ml Intake Oral 240 ml # Voids 1 # Bowel Movements 1 Laboratory Tests 01/27/18 05:10: White Blood Count 16.4H, Red Blood Count 2.62L, Hemoglobin 7.5L, Hematocrit 23.7L, Mean Corpuscular Volume 91, Mean Corpuscular Hemoglobin 28.7, Mean Corpuscular Hemoglobin Concent 31.7L, Red Cell Distribution Width 14.2, Platelet Count 284, Mean Platelet Volume 5.1L, Neutrophils (%) (Auto) , Lymphocytes (%) (Auto) , Monocytes (%) (Auto) , Eosinophils (%) (Auto) , Basophils (%) (Auto) , Differential Total Cells Counted 100, Neutrophils % ( Manual) 74, Lymphocytes % (Manual) 9L, Monocytes % (Manual) 13H, Eosinophils % ( Manual) 4H, Basophils % (Manual) 0, Band Neutrophils 0, Platelet Estimate Adequate, Platelet Morphology Normal, Polychromasia 1+, Hypochromasia 2+, Anisocytosis 1+ Height (Feet): 5 Height (Inches): 8.00 Weight (Pounds): 192 Objective WDWN NAD clear breath sounds bilaterally without rhonchi or wheeze [id number] without MRG NABS nontender no HSM no CCE nonfocal weak Warren Cardoza MD Jan 27, 2018 10:18
[2018-01-27 12:00] VITALS: BP 133/81
[2018-01-27] MEDS ORDERED: Epogen (for non ESRD use) SUBQ SCH (21:00)
--- NOTE | 2018-01-27 22:30 | Progress Note ---
DATE: 01/27/2018 CARDIOLOGY PROGRESS NOTE SUBJECTIVE: The patient needs packed red blood cell transfusion. He has poor intravenous access. A PICC line is being placed. He denies chest pain. He is short of breath with mobility. OBJECTIVE: VITAL SIGNS: Blood pressure 125/73, heart rate 94 to 104, and respiratory rate 15 to 20. He is afebrile. NECK: Supple. LUNGS: Diminished breath sounds. CARDIAC: Regular rhythm and rapid rate. Normal S1, S2 with a fourth heart sound. ABDOMEN: Soft. EXTREMITIES: No edema. IMPRESSION: 1. Sinus tachycardia secondary to anemia. 2. Chronic obstructive pulmonary disease. 3. Pleuritic chest pain. 4. Microvascular angina. 5. Rectal bleeding. 6. Iron deficiency anemia. 7. History of alcoholism. PLAN: 1. PICC line for packed red blood cell transfusion and intravenous therapy. 2. Expect improvement in heart rate. 3. Subsequently, nasal oxygen and interim respiratory hygiene. 4. No anti-platelet therapy at this time as increased risk to benefit ratio. 5. No additional cardiovascular workup presently planned. 6. We will reassess volume status following transfusion, but doubt need for any diuretic therapy based on underlying cardiovascular function. Adriel Guerrero M.D. DR: JUAN C JOB#: [id number] CC:
== END 2018-01-27 16:30 ==
LOC: EDSTATUS 12:44 → 4E 16:19
DX: D50.9 Iron deficiency anemia, unspecified (principal); K62.5 Hemorrhage of anus and rectum; K70.30 Alcoholic cirrhosis of liver without ascites; R62.7 Adult failure to thrive; K64.9 Unspecified hemorrhoids; R00.0 Tachycardia, unspecified; K76.6 Portal hypertension; I85.10 Secondary esophageal varices without bleeding; J44.9 Chronic obstructive pulmonary disease, unspecified; R07.81 Pleurodynia; I20.8 Other forms of angina pectoris; E43 Unspecified severe protein-calorie malnutrition; N40.0 Benign prostatic hyperplasia without lower urinary tract symptoms; K57.30 Diverticulosis of large intestine without perforation or abscess without bleeding; Z87.19 Personal history of other diseases of the digestive system
CPT/HCPCS: 36415 ×2; 85007; 85025; 86850; 86870; 86900; 86901; 86920; 87081 ×3; 94664; G0378 ×2; G0379; P9016; 36430

== ENCOUNTER 2018-02-26 10:23 | Inpatient (IN) | payer MEDICARE, OTHER ==
[~2018-02-26] VITALS: Ht 175.3 cm; Wt 72.6 kg
[~2018-02-26 10:23] MED LIST changes: +ACETAMINOPHEN325 M1 ORAL; +ARTIFICIAL TEA1 EAC2 OP; +CARISOPRODOL350 MG ORAL; +EPOGEN10000 UNIT SUBQ; +FERROUSUL325 M1 PO; +FINASTERIDE1 MG PO; +IPRATROPIU0.2 MG/1 M HHN; +NORCO 5-325 TA1 EACH ORAL; +NORVASC5 MG ORAL; +PANTOPRAZOLE SO40 MG ORAL; +TAMSULOSIN HCL0.4 MG ORAL; +ZOFRAN ODT8 MG ORAL
[2018-02-26] MEDS ORDERED: Isovue-300 100ml vial INJ PRN (10:45)
[2018-02-26 11:09] LABS: BASOPHILS % (AUTO) 1.8 % (0.0-2.0); EOSINOPHILS % (AUTO) 6.1 % (0.0-3.0); HEMATOCRIT 35.7 % (42.0-52.0); HEMOGLOBIN 10.9 G/DL (14.2-18.0); LYMPHOCYTES % (AUTO) 17.6 % (20.0-45.0); MEAN CORPUSCULAR VOLUME 88 FL (80-99); MONOCYTES % (AUTO) 12.4 % (1.0-10.0); NEUTROPHILS % (AUTO) 62.2 % (45.0-75.0); PLATELET COUNT 215 K/UL (150-450); RED BLOOD COUNT 4.03 M/UL (4.70-6.10); WHITE BLOOD COUNT 9.1 K/UL (4.8-10.8)
[2018-02-26 11:20] LABS: ANION GAP 7 mmol/L (5-15); BLOOD UREA NITROGEN 9 mg/dL (7-18); CARBON DIOXIDE 26 MMOL/L (21-32); CHLORIDE 105 MMOL/L (98-107); CREATININE 0.9 MG/DL (0.55-1.30); POTASSIUM 3.8 MMOL/L (3.5-5.1); SODIUM 138 MMOL/L (136-145)
[2018-02-26 11:22] VITALS: BP 125/80
[2018-02-26 11:30] LABS: ALANINE AMINOTRANSFERASE 20 U/L (12-78); ALBUMIN 1.7 G/DL (3.4-5.0); ALBUMIN/GLOBULIN RATIO 0.2 (1.0-2.7); ALKALINE PHOSPHATASE 138 U/L (46-116); ASPARTATE AMINO TRANSFERASE 42 U/L (15-37)
[2018-02-26 11:32] LABS: APPEARANCE,URINE SLIGHTLY CLOUDY; BILIRUBIN, URINE NEGATIVE (NEGATIVE); GLUCOSE, URINE (UA) NEGATIVE (NEGATIVE); KETONES,URINE NEGATIVE (NEGATIVE); LEUKOCYTE ESTERASE ,URINE 1+ (NEGATIVE); NITRITE,URINE NEGATIVE (NEGATIVE); PH,URINE 6 (4.5-8.0); PROTEIN,URINE 1+ (NEGATIVE); UROBILINOGEN,URINE 1 MG/DL (0.0-1.0)
[2018-02-26 11:39] LABS: COLOR,URINE YELLOW
--- NOTE | 2018-02-26 13:48 | Diagnostic Imaging Report ---
Indication: Abdominal pain Technique: Continuous helical transaxial imaging of the abdomen and pelvis was obtained from the lung bases to the pubic symphysis during intravenous contrast administration. Coronal 2-D reformats were also obtained. Study obtained in a Siemens sensation [address] Automatic Exposure Control was utilized. Total Dose length Product (DLP): 825.[address] Dose Index Volume (CTDIvol): 15.7 mGy Comparison: None Findings: Trace bilateral pleural effusions are present with posterior basilar reticular densities which may represent atelectasis and/or scarring. There is moderate ascites demonstrated. Question of nodularity of the liver demonstrated. There is recanalization of the umbilical vein sign of portal hypertension. There are other serpiginous structures in the upper abdomen surrounding the esophagus upper stomach suspicious for portosystemic varices. The spleen is prominent. Gallstone noted. There is some enhancement of the gallbladder wall. There are bilateral renal cysts. There is no hydronephrosis. There is no evidence of bowel obstruction or free air. The colon is diffusely underdistended. Mild degree of colitis not excludable. Correlate clinically. There is also the suggestion of diverticula within the colon particularly in the ascending colon. Moderate aortoiliac calcifications present consistent with atherosclerotic disease. Anasarca noted. There is narrowing of intervertebral discs and accompanying endplate osteophyte formation. Hypertrophied facet joints also demonstrated. IMPRESSION: Moderate ascites likely on the basis of chronic liver disease/cirrhosis given the signs of portal hypertension including recanalized umbilical vein and splenomegaly. Portosystemic varices also suspected in the upper abdomen. Questionable colitis given prominence of the wall of the colon. Colon is under distended which limits evaluation. Anasarca Cholelithiasis Trace bilateral pleural effusions and posterior basal atelectasis versus scarring. Few bilateral renal cysts. Moderate atherosclerotic vascular disease. Small hiatal hernia Degenerative changes of the spine The CT scanner at [facility] is accredited by the [employer] and the scans are performed using dose optimization techniques as appropriate to a performed exam including Automatic Exposure control.
[2018-02-26 14:03] VITALS: BP 123/74
--- NOTE | 2018-02-26 16:16 | Emergency Room Report ---
History of Present Illness General Chief Complaint: General Complaint Source: Patient, Medical Record Present Illness HPI This patient has a history of cirrhosis. He has never had ascites or paracentesis in the past. [facility] for [facility] distention. The patient states his abdomen feels tense but denies pain. He denies fever or chills. He denies nausea or vomiting. He has no other complaints. Allergies: Coded Allergies: No Known Allergies (Unverified , 11/16/14) Patient History Past Medical History: see triage record, HTN, CVA/TIA, other - cirrhosis Social History: Denies: smoking, alcohol use, drug use Reviewed Nursing Documentation: PMH: Agreed; PSxH: Agreed Nursing Documentation-PMH Past Medical History: No History, Except For Hx Cardiac Problems: Yes Hx Hypertension: Yes Hx Cancer: No Hx Gastrointestinal Problems: Yes Hx Neurological Problems: Yes Hx Cerebrovascular Accident: Yes - 2014; L weak Hx Weakness: Yes Review of Systems All Other Systems: negative except mentioned in HPI Physical Exam Vital Signs Date Time Temp Pulse Resp B/P (MAP) Pulse Ox O2 Delivery O2 Flow Rate FiO2 02/26/18 10:25 98.6 97 20 110/80 98 Nasal Cannula 2.0 Sp02 EP Interpretation: reviewed, normal General Appearance: no apparent distress, alert, GCS 15, non-toxic Head: normocephalic, atraumatic Eyes: bilateral eye normal inspection, bilateral eye PERRL ENT: hearing grossly normal, normal pharynx, no angioedema, normal voice Neck: full range of motion, supple/symm/no masses Respiratory: chest non-tender, lungs clear, normal breath sounds, no respiratory distress, no retraction, no accessory muscle use, speaking full sentences Cardiovascular #1: regular rate, rhythm, no edema Gastrointestinal: normal bowel sounds, non tender, soft, no guarding, no rebound, distended - w/fluid wave Rectal: deferred Musculoskeletal: back normal, normal range of motion, non-tender Neurologic: alert, oriented x3, responsive, speech normal, grossly normal Psychiatric: judgement/insight normal, memory normal, mood/affect normal, no suicidal/homicidal ideation Skin: normal color, no rash, warm/dry, well hydrated Medical Decision Making Diagnostic Impression: Primary Impression: Ascites Additional Impression: Cirrhosis ER Course This patient has significant ascites. An ultrasound-guided paracentesis was ordered per radiology. However, the radiologist states he cannot do that this evening. He will be admitted for further evaluation of his ascites and for ultrasound-guided paracentesis. The patient remained stable in the emergency department. I do not suspect SBP at this time. He is admitted in a stable condition. Laboratory Tests Test 02/26/18 10:53 02/26/18 11:00 White Blood Count 9.1 K/UL (4.8-10.8) Red Blood Count 4.03 M/UL (4.70-6.10) L Hemoglobin 10.9 G/DL (14.2-18.0) L Hematocrit 35.7 % (42.0-52.0) L Mean Corpuscular Volume 88 FL (80-99) Mean Corpuscular Hemoglobin 27.0 PG (27.0-31.0) Mean Corpuscular Hemoglobin Concent 30.5 G/DL (32.0-36.0) L Red Cell Distribution Width 15.0 % (11.6-14.8) H Platelet Count 215 K/UL (150-450) Mean Platelet Volume 5.3 FL (6.5-10.1) L Neutrophils (%) (Auto) 62.2 % (45.0-75.0) Lymphocytes (%) (Auto) 17.6 % (20.0-45.0) L Monocytes (%) (Auto) 12.4 % (1.0-10.0) H Eosinophils (%) (Auto) 6.1 % (0.0-3.0) H Basophils (%) (Auto) 1.8 % (0.0-2.0) Sodium Level 138 MMOL/L (136-145) Potassium Level 3.8 MMOL/L (3.5-5.1) Chloride Level 105 MMOL/L (98-107) Carbon Dioxide Level 26 MMOL/L (21-32) Anion Gap 7 mmol/L (5-15) Blood Urea Nitrogen 9 mg/dL (7-18) Creatinine 0.9 MG/DL (0.55-1.30) Estimate Glomerular Filtration Rate > 60 mL/min (>60) Glucose Level 113 MG/DL (74-106) H Calcium Level 8.0 MG/DL (8.5-10.1) L Total Bilirubin 1.0 MG/DL (0.2-1.0) Aspartate Amino Transferase (AST) 42 U/L (15-37) H Alanine Aminotransferase (ALT) 20 U/L (12-78) Alkaline Phosphatase 138 U/L (46-116) H Total Protein 8.5 G/DL (6.4-8.2) H Albumin 1.7 G/DL (3.4-5.0) L Globulin 6.8 g/dL Albumin/Globulin Ratio 0.2 (1.0-2.7) L Lipase 124 U/L (73-393) Urine Color Yellow Urine Appearance Slightly cloudy Urine pH 6 (4.5-8.0) Urine Specific [place] 1.015 (1.005-1.035) Urine Protein 1+ (NEGATIVE) H Urine Glucose (UA) Negative (NEGATIVE) Urine Ketones Negative (NEGATIVE) Urine Blood Negative (NEGATIVE) Urine Nitrite Negative (NEGATIVE) Urine Bilirubin Negative (NEGATIVE) Urine Urobilinogen 1 MG/DL (0.0-1.0) H Urine Leukocyte Esterase 1+ (NEGATIVE) H Urine RBC 2-4 /HPF (0 - 0) H Urine WBC 5-10 /HPF (0 - 0) H Urine Squamous Epithelial Cells Occasional /LPF Urine Bacteria Few /HPF (NONE) Urine Hyaline Casts 0-2 /LPF (NONE) H CT/MRI/US Diagnostic Results CT/MRI/US Diagnostic Results : Imaging Test Ordered: CT abd/pelvis Impression Moderate ascites likely on the basis of chronic liver disease/cirrhosis given the signs of portal hypertension including recanalized umbilical vein and splenomegaly. Portosystemic varices also suspected in the upper abdomen. Questionable colitis given prominence of the wall of the colon. Colon is under distended which limits evaluation. Anasarca Cholelithiasis Trace bilateral pleural effusions and posterior basal atelectasis versus scarring. Few bilateral renal cysts. Moderate atherosclerotic vascular disease. Small hiatal hernia Degenerative changes of the spine Last Vital Signs Date Time Temp Pulse Resp B/P (MAP) Pulse Ox O2 Delivery O2 Flow Rate FiO2 02/26/18 14:03 98.6 92 15 123/74 98 Room Air 02/26/18 11:22 2.0 Disposition: ADMITTED INPATIENT Condition: Stable Referrals: Warren Cardoza MD (PCP) Tori Batres DO Feb 26, 2018 16:16
[2018-02-26 16:47] VITALS: BP 125/81
--- NOTE | 2018-02-26 17:41 | General Progress Note ---
Assessment/Plan Assessment/Plan GI CONSULT Assessment - EtOH Cirrhosis (Hep B/C negative recently) - Progressive ascites - Portal HTN - h/o mild varicies - h/o hemorrhoids Recommendations - Therapeutic paracentesis - Nonselective beta-heather for varix history - Nadolol - check ascites cytology (AFP negative recently) - Sodium restriction - longterm Lasix / aldactone Thank you Kishan Prado MD Subjective Allergies: Coded Allergies: No Known Allergies (Unverified , 11/16/14) Objective Last 24 Hour Vital Signs Date Time Temp Pulse Resp B/P (MAP) Pulse Ox O2 Delivery O2 Flow Rate FiO2 02/26/18 17:18 98.6 92 16 125/81 98 Room Air 2.0 02/26/18 16:47 98.6 92 16 125/81 98 Room Air 02/26/18 14:03 98.6 92 15 123/74 98 Room Air 02/26/18 11:22 96 20 Nasal Cannula 2.0 02/26/18 11:22 98.6 96 20 125/80 98 Room Air 02/26/18 10:25 98.6 97 20 110/80 98 Nasal Cannula 2.0 Laboratory Tests 02/26/18 10:53: White Blood Count 9.1, Red Blood Count 4.03L, Hemoglobin 10.9L, Hematocrit 35.7L , Mean Corpuscular Volume 88, Mean Corpuscular Hemoglobin 27.0, Mean Corpuscular Hemoglobin Concent 30.5L, Red Cell Distribution Width 15.0H, Platelet Count 215, Mean Platelet Volume 5.3L, Neutrophils (%) (Auto) 62.2, Lymphocytes (%) (Auto) 17.6L, Monocytes (%) (Auto) 12.4H, Eosinophils (%) (Auto ) 6.1H, Basophils (%) (Auto) 1.8, Sodium Level 138, Potassium Level 3.8, Chloride Level 105, Carbon Dioxide Level 26, Anion Gap 7, Blood Urea Nitrogen 9 , Creatinine 0.9, Estimat Glomerular Filtration Rate > 60, Glucose Level 113H, Calcium Level 8.0L, Total Bilirubin 1.0, Aspartate Amino Transf (AST/SGOT) 42H, Alanine Aminotransferase (ALT/SGPT) 20, Alkaline Phosphatase 138H, Total Protein 8.5H, Albumin 1.7L, Globulin 6.8, Albumin/Globulin Ratio 0.2L, Lipase 124 02/26/18 11:00: Urine Color Yellow, Urine Appearance Slightly cloudy, Urine pH 6, Urine Specific [place] 1.015, Urine Protein 1+H, Urine Glucose (UA) Negative, Urine Ketones Negative, Urine Blood Negative, Urine Nitrite Negative, Urine Bilirubin Negative, Urine Urobilinogen 1H, Urine Leukocyte Esterase 1+H, Urine RBC 2-4H, Urine WBC 5-10H, Urine Squamous Epithelial Cells Occasional, Urine Bacteria Few , Urine Hyaline Casts 0-2H Height (Feet): 5 Height (Inches): 9.00 Weight (Pounds): 160 Nadia Prado MD Feb 26, 2018 17:41
[2018-02-26] MEDS ORDERED: Norco 5mg/325mg tab ORAL PRN (19:00)
[2018-02-26] MEDS ORDERED: Ipratropium 0.02% Inh Soln 2.5ml UD HHN PRN (19:00)
[2018-02-26] MEDS ORDERED: Artificial Tears 1.4% Op Soln BOTH EYES PRN (19:00)
[2018-02-26] MEDS ORDERED: Ondansetron ODT 8mg tab ORAL PRN (19:00)
[2018-02-26 20:00] VITALS: BP 131/86
[2018-02-26] MEDS ORDERED: Epogen (for non ESRD use) SUBQ SCH (21:00)
[2018-02-26] MEDS: Tamsulosin 0.4mg cap ORAL SCH (21:16)
[2018-02-27] VITALS (7 sets, daily range): BP systolic 109–129; BP diastolic 66–83
--- NOTE | 2018-02-27 | Consultation ---
DATE OF CONSULTATION: 02/26/2018 NOTE: INCOMPLETE DICTATION GASTROENTEROLOGY CONSULTATION CONSULTING PHYSICIAN: Nadia Prado M.D. REFERRING PHYSICIAN: Warren Cardoza M.D. CHIEF COMPLAINT: I was asked to see this patient by Dr. Warren Cardoza for evaluation of severe ascites. HISTORY OF PRESENT ILLNESS: The patient is a pleasant 57-year-old man, who was admitted for worsening abdominal distention. The patient states that he has noted this for about 10 days and today when he was seen by his primary physician, he was advised to come to the emergency room because of his presumptive ascites. The patient has been admitted here before and in fact in December 2017, he was admitted for diarrhea and rectal bleeding, and he was also found to have liver disease. On that admission, he had abdominal ultrasound showing evidence of cirrhosis with esophageal varices and mild ascites. Hepatitis B and C serologies were negative and the cirrhosis was presumed to be due to his previous history of alcoholism. He stopped drinking alcohol, however, for about few months. The patient previously drank beer and hard liquor for at least about six beverages a day for at least 30 years. On this admission, a CT scan has been done showing again the cirrhosis and portal hypertension, but now, he has significant degree of ascites formed. In December, the alpha-fetoprotein was negative and he also had an endoscopy and colonoscopy for his presentation of gastrointestinal bleeding. On the endoscopy, mild esophageal varices were seen, but not enough to band. His colonoscopy was remarkable only for hemorrhoids. There was also some incidental mild gastritis. 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 FAMILY HISTORY: Positive for renal failure in brother and mother. SOCIAL HISTORY: The patient smokes 2 cigarettes a day. He does not drink at this time, although previously he drank 6 beverages of alcohol a day for the past 30 years. He is currently in a shelter. REVIEW OF SYSTEMS: Otherwise negative. MEDICATIONS: See chart list for details. PHYSICAL EXAMINATION: GENERAL: A pleasant man with a protuberant stomach seen in the emergency room. HEENT: Normocephalic and atraumatic. Dentition was poor. NECK: Supple. CHEST: Clear to auscultation. CARDIOVASCULAR: Revealed regular rate. ABDOMEN: Distended and firm, but nontender, resolved this fluid shift. EXTREMITIES: Revealed 2+ edema in bilateral lower extremities. NEUROLOGICAL: Grossly nonfocal. LABORATORY DATA: Laboratory data were noted. ASSESSMENT: This patient presents with a known history of cirrhosis with now worsening ascites and edema. He will likely need a paracentesis and he will then need to be placed on long-term diuretic therapy. His creatinine has now normalized. Therefore, examinations can be done more safely. His albumin is low consistent with chronic liver disease. His alpha-fetoprotein was checked recently and now likely significantly different. I would send his ascites fluid for cytology, although it is likely due to portal hypertension. The patient should be followed with respect to his laboratory parameters during this hospitalization. RECOMMENDATIONS: 1. Therapeutic paracentesis. 2. Follow laboratory parameters and exam. 3. Check ascites cytology. 4. The patient can benefit from long-term beta-heather therapy for his portal hypertension. 5. I would begin nadolol daily at this time. Thank you for asking me to participate in care of this patient. Kenneth Galeana JOB#: [id number] CC: Kenneth Galeana JOB#: [id number] CC: SHADI
--- NOTE | 2018-02-27 01:00 | Consultation ---
DATE OF CONSULTATION: 02/26/2018 GASTROENTEROLOGY CONSULTATION CONSULTING PHYSICIAN: Nadia Prado M.D. REFERRING PHYSICIAN: Warren Cardoza M.D. CHIEF COMPLAINT: I was asked to see this patient by Dr. Warren Cardoza for evaluation of severe ascites. HISTORY OF PRESENT ILLNESS: The patient is a pleasant 57-year-old man, who was admitted for worsening abdominal distention. The patient states that he has noted this for about 10 days and today when he was seen by his primary physician, he was advised to come to the emergency room because of his presumptive ascites. The patient has been admitted here before and in fact in December 2017, he was admitted for diarrhea and rectal bleeding, and he was also found to have liver disease. On that admission, he had abdominal ultrasound showing evidence of cirrhosis with esophageal varices and mild ascites. Hepatitis B and C serologies were negative and the cirrhosis was presumed to be due to his previous history of alcoholism. He stopped drinking alcohol, however, for about few months. The patient previously drank beer and hard liquor for at least about six beverages a day for at least 30 years. On this admission, a CT scan has been done showing again the cirrhosis and portal hypertension, but now, he has significant degree of ascites formed. In December, the alpha-fetoprotein was negative and he also had an endoscopy and colonoscopy for his presentation of gastrointestinal bleeding. On the endoscopy, mild esophageal varices were seen, but not enough to band. His colonoscopy was remarkable only for hemorrhoids. There was also some incidental mild gastritis. 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 FAMILY HISTORY: Positive for renal failure in brother and mother. SOCIAL HISTORY: The patient smokes 2 cigarettes a day. He does not drink at this time, although previously he drank 6 beverages of alcohol a day for the past 30 years. He is currently in a longterm. REVIEW OF SYSTEMS: Otherwise negative. MEDICATIONS: See chart list for details. PHYSICAL EXAMINATION: GENERAL: A pleasant man with a protuberant stomach seen in the emergency room. HEENT: Normocephalic and atraumatic. Dentition was poor. NECK: Supple. CHEST: Clear to auscultation. CARDIOVASCULAR: Revealed regular rate. ABDOMEN: Distended and firm, but nontender, resolved this fluid shift. EXTREMITIES: Revealed 2+ edema in bilateral lower extremities. NEUROLOGICAL: Grossly nonfocal. LABORATORY DATA: Laboratory data were noted. ASSESSMENT: This patient presents with a known history of cirrhosis with now worsening ascites and edema. He will likely need a paracentesis and he will then need to be placed on long-term diuretic therapy. His creatinine has now normalized. Therefore, examinations can be done more safely. His albumin is low consistent with chronic liver disease. His alpha-fetoprotein was checked recently and now likely significantly different. I would send his ascites fluid for cytology, although it is likely due to portal hypertension. The patient should be followed with respect to his laboratory parameters during this hospitalization. RECOMMENDATIONS: 1. Therapeutic paracentesis. 2. Follow laboratory parameters and exam. 3. Check ascites cytology. 4. The patient can benefit from long-term beta-heather therapy for his portal hypertension. 5. I would begin nadolol daily at this time. Thank you for asking me to participate in care of this patient. Nadia Prado M.D. DR: RICKI JOB#: [id number] CC: SHADI
--- NOTE | 2018-02-27 02:45 | History and Physical Report ---
DATE OF ADMISSION: 02/26/2018 REASON FOR ADMISSION: Profound abdominal distention, ascites, and significant anasarca. HISTORY: This is a 57-year-old male seen at the nursing facility today. The patient was noted to have significant abdominal distention with positive fluid wave. The patient was seen and evaluated, also noted to have worsening anasarca. The patient therefore was transferred for evaluation in the ER. In the ER, the patient was noted to have the above-noted findings. The patient previously was admitted for significant anemia, although currently the patient is stable from that standpoint. The patient admits to some mild shortness of breath. Liver enzymes are slightly elevated as well. The patient's care discussed and reviewed. The patient's findings apparently were semi-acute overall. The patient has failure to thrive and has not been very ambulatory. PAST MEDICAL HISTORY: Notable for spinal stenosis, BPH, anemia status post transfusion, history of ascites, history of cirrhosis, and history of hypertension. MEDICATIONS: Reviewed. ALLERGIES: Reviewed. SOCIAL HISTORY: Resides in a group home facility. Currently, nonsmoker, but does have a history of alcohol abuse. REVIEW OF SYSTEMS: All 10 points reviewed and otherwise negative with the exception of the above. The patient does have benign prostatic hyperplasia. Does have a history of reflux. Does have a history of anemia. Does have a history of transfusion and hypertension. PHYSICAL EXAMINATION: GENERAL: The patient is an ill-appearing male. VITAL SIGNS: Blood pressure 125/81, pulse 92, temperature 96, respirations 16, and sats 98%. HEENT: Fairly negative. Extraocular movements are grossly intact. There is no asterixis. NECK: Supple. LUNGS: With moderate breath sounds, slightly reduced. CARDIAC: Normal S1 and S2. Regular rate and rhythm without clear murmurs, rubs, or gallops. ABDOMEN: Significantly distended with a positive fluid wave. Positive bowel sounds, but reduced. EXTREMITIES: With noted significant edema of the lower extremities. LABORATORY DATA: Lab data reviewed. White count 9.1, hemoglobin 10.9, and platelets of 215,000. Chemistry is noted. The liver enzymes are slightly elevated. Alkaline phosphatase 138. Albumin 1.7. IMPRESSION: 1. Ascites, doubt peritonitis at present. 2. Evidence of mild transaminitis. 3. Probable cirrhosis. 4. Severe protein-calorie malnutrition. 5. History of anemia with history of transfusion. 6. Chronic back pain. RECOMMENDATIONS: 1. Supportive care. 2. Proceed with paracentesis if it is possible for diagnostic and therapeutic purposes. 3. Diuresis . 4. GI evaluation. 5. Fluid restriction. 6. Resume snf medications. 7. Stabilize and discharge the patient back when improved. Warren Cardoza M.D. DR: MARI JOB#: [id number] CC:
[2018-02-27] MEDS: Propranolol 10mg tab ORAL SCH ×3 (05:25→22:00)
[2018-02-27 07:47] LABS: ANION GAP 5 mmol/L (5-15); BLOOD UREA NITROGEN 7 mg/dL (7-18); CARBON DIOXIDE 27 MMOL/L (21-32); CHLORIDE 107 MMOL/L (98-107); CREATININE 0.9 MG/DL (0.55-1.30); POTASSIUM 3.2 MMOL/L (3.5-5.1); SODIUM 139 MMOL/L (136-145)
[2018-02-27 07:51] LABS: BASOPHILS % (AUTO) 1.4 % (0.0-2.0); HEMATOCRIT 33.4 % (42.0-52.0); HEMOGLOBIN 10.6 G/DL (14.2-18.0); LYMPHOCYTES % (AUTO) 16.3 % (20.0-45.0); MEAN CORPUSCULAR VOLUME 86 FL (80-99); NEUTROPHILS % (AUTO) 63.3 % (45.0-75.0); PLATELET COUNT 213 K/UL (150-450); RED BLOOD COUNT 3.87 M/UL (4.70-6.10); RED CELL DISTRIBUTION WIDTH 14.9 % (11.6-14.8); WHITE BLOOD COUNT 8.7 K/UL (4.8-10.8)
[2018-02-27] MEDS: Aspirin EC 81mg tab ORAL SCH (09:18)
--- NOTE | 2018-02-27 16:30 | Pulmonology Progress Note ---
Assessment/Plan Assessment/Plan Pulmonary Progress Note REASON FOR ADMISSION: Profound abdominal distention, ascites, and significant anasarca. HISTORY: This is a 57-year-old male seen at the nursing facility today. The patient was noted to have significant abdominal distention with positive fluid wave. The patient was seen and evaluated, also noted to have worsening anasarca. The patient therefore was transferred for evaluation in the ER. In the ER, the patient was noted to have the above-noted findings. The patient previously was admitted for significant anemia, although currently the patient is stable from that standpoint. The patient admits to some mild shortness of breath. Liver enzymes are slightly elevated as well. The patient's care discussed and reviewed. The patient's findings apparently were semi-acute overall. The patient has failure to thrive and has not been very ambulatory. PAST MEDICAL HISTORY: Notable for spinal stenosis, BPH, anemia status post transfusion, history of ascites, history of cirrhosis, and history of hypertension. MEDICATIONS: Reviewed. ALLERGIES: Reviewed. SOCIAL HISTORY: Resides in a group home facility. Currently, nonsmoker, but does have a history of alcohol abuse. REVIEW OF SYSTEMS: All 10 points reviewed and otherwise negative with the exception of the above. The patient does have benign prostatic hyperplasia. Does have a history of reflux. Does have a history of anemia. Does have a history of transfusion and hypertension. PHYSICAL EXAMINATION: GENERAL: The patient is an ill-appearing male. VITAL SIGNS NOTED HEENT: Fairly negative. Extraocular movements are grossly intact. There is no asterixis. NECK: Supple. LUNGS: With moderate breath sounds, slightly reduced. CARDIAC: Normal S1 and S2. Regular rate and rhythm without clear murmurs, rubs, or gallops. ABDOMEN: Significantly distended with a positive fluid wave. Positive bowel sounds, but reduced. EXTREMITIES: With noted significant edema of the lower extremities. LABORATORY DATA: Lab data reviewed. White count 9.1, hemoglobin 10.9, and platelets of 215,000. Chemistry is noted. The liver enzymes are slightly elevated. Alkaline phosphatase 138. Albumin 1.7. IMPRESSION: 1. Ascites, doubt peritonitis at present. 2. Evidence of mild transaminitis. 3. Probable cirrhosis. 4. Severe protein-calorie malnutrition. 5. History of anemia with history of transfusion. 6. Chronic back pain. RECOMMENDATIONS: 1. Supportive care. 2. Proceed with paracentesis if it is possible for diagnostic and therapeutic purposes. 3. Diuresis PRN 4. GI evaluation. 5. Fluid restriction. 6. Resume alf medications. 7. Stabilize and discharge the patient back when improved. Subjective ROS Limited/Unobtainable: No Allergies: Coded Allergies: No Known Allergies (Unverified , 11/16/14) Objective Last 24 Hour Vital Signs Date Time Temp Pulse Resp B/P (MAP) Pulse Ox O2 Delivery O2 Flow Rate FiO2 02/27/18 13:58 76 110/73 02/27/18 12:00 96.6 76 18 110/73 (85) 97 02/27/18 10:11 75 20 129/83 (98) 94 02/27/18 09:00 Room Air 02/27/18 09:00 98 116/75 02/27/18 08:00 98.9 20 20 118/78 (91) 98 02/27/18 05:25 98 116/75 02/27/18 04:00 99.1 98 19 116/75 (89) 97 02/27/18 00:00 99.1 98 19 124/78 (93) 96 02/26/18 21:00 Room Air 02/26/18 20:00 98.7 92 19 131/86 (101) 96 02/26/18 18:29 Room Air 02/26/18 17:18 98.6 92 16 125/81 98 Room Air 2.0 02/26/18 16:47 98.6 92 16 125/81 98 Room Air Intake and Output 02/26/18 02/27/18 19:00 07:00 Intake Total 350 ml Output Total 250 ml 700 ml Balance -250 ml -350 ml Intake Oral 350 ml Output Urine Total 250 ml 700 ml # Voids 2 # Bowel Movements 3 1 Microbiology Date/Time Source Procedure Growth Status 02/26/18 21:20 Rectum Received Laboratory Tests 02/27/18 05:45: White Blood Count 8.7, Red Blood Count 3.87L, Hemoglobin 10.6L, Hematocrit 33.4L , Mean Corpuscular Volume 86, Mean Corpuscular Hemoglobin 27.4, Mean Corpuscular Hemoglobin Concent 31.8L, Red Cell Distribution Width 14.9H, Platelet Count 213, Mean Platelet Volume 4.9L, Neutrophils (%) (Auto) 63.3, Lymphocytes (%) (Auto) 16.3L, Monocytes (%) (Auto) 11.0H, Eosinophils (%) (Auto ) 8.0H, Basophils (%) (Auto) 1.4, Sodium Level 139, Potassium Level 3.2L, Chloride Level 107, Carbon Dioxide Level 27, Anion Gap 5, Blood Urea Nitrogen 7 , Creatinine 0.9, Estimat Glomerular Filtration Rate > 60, Glucose Level 77, Calcium Level 8.0L, Alpha Fetoprotein [Pending] Current Medications Medications (Trade) Dose Ordered Sig/Josesito Route PRN Reason Start Time Stop Time Status Last Admin Dose Admin Acetaminophen (Tylenol) 650 mg Q4H PRN ORAL Mild Pain/Temp > 100.5 02/26/18 19:00 03/28/18 18:59 02/27/18 10:01 Acetaminophen/ Hydrocodone Bitart ([place] 5/325) 1 tab Q4H PRN ORAL Severe Pain (Pain Scale 7-10) 02/26/18 19:00 03/05/18 18:59 Amlodipine Besylate (Norvasc) 5 mg DAILY ORAL 02/27/18 09:00 03/29/18 08:59 Artificial Tears (Akwa-Tears) 2 drop BID PRN BOTH EYES Dry Eyes 02/26/18 19:00 03/28/18 18:59 Aspirin (Ecotrin) 81 mg DAILY ORAL 02/27/18 09:00 03/29/18 08:59 02/27/18 09:18 Carisoprodol (Soma) 350 mg THREE TIMES A DAY ORAL 02/27/18 09:00 03/29/18 08:59 02/27/18 12:42 Epoetin Arnie (Procrit (for non ESRD use)) 10,000 units THU-THU-THU SUBQ 02/26/18 21:00 03/28/18 20:59 02/26/18 21:16 Ferrous Sulfate (Feosol) 325 mg THREE TIMES A DAY ORAL 02/27/18 09:00 03/29/18 08:59 02/27/18 12:42 Finasteride (Proscar) 1 mg DAILY ORAL 02/27/18 09:00 03/29/18 08:59 02/27/18 09:17 Furosemide (Lasix) 20 mg DAILY IV 02/27/18 09:00 03/29/18 08:59 02/27/18 09:19 Gabapentin (Neurontin) 600 mg THREE TIMES A DAY ORAL 02/27/18 09:00 03/29/18 08:59 02/27/18 12:42 Iopamidol (Isovue-300 100ml) 100 ml NOW PRN INJ Radiology Procedure 02/26/18 10:45 Ipratropium [place] (Atrovent) 500 mcg Q4H PRN HHN Shortness of Breath 02/26/18 19:00 03/03/18 18:59 Ondansetron HCl (Zofran ODT) 8 mg Q6H PRN ORAL Nausea & Vomiting 02/26/18 19:00 03/28/18 18:59 Pantoprazole (Protonix) 40 mg EVERY 12 HOURS ORAL 02/26/18 21:00 03/28/18 20:59 02/27/18 09:19 Propranolol HCl (Inderal) 10 mg Q8HR ORAL 02/27/18 06:00 03/29/18 05:59 02/27/18 05:25 Tamsulosin HCl (Flomax) 0.4 mg BEDTIME ORAL 02/26/18 21:00 03/28/18 20:59 02/26/18 21:16 Adriel Kenyon MD Feb 27, 2018 16:30
--- NOTE | 2018-02-27 17:49 | General Progress Note ---
Assessment/Plan Assessment/Plan Assessment - EtOH Cirrhosis (Hep B/C negative recently) - Progressive ascites - Portal HTN - h/o mild varicies - h/o hemorrhoids Recommendations - Therapeutic paracentesis - Nonselective beta-heather for varix history - Nadolol - check ascites cytology (AFP negative recently) - Sodium restriction - senior care Lasix / aldactone Subjective Allergies: Coded Allergies: No Known Allergies (Unverified , 11/16/14) Subjective above noted no new complaints no radiology dept staff to do paracentesis over weekend so procedure postponed to Thursday Objective Last 24 Hour Vital Signs Date Time Temp Pulse Resp B/P (MAP) Pulse Ox O2 Delivery O2 Flow Rate FiO2 02/27/18 16:00 96.6 76 18 110/73 (85) 97 02/27/18 13:58 76 110/73 02/27/18 12:00 96.6 76 18 110/73 (85) 97 02/27/18 10:11 75 20 129/83 (98) 94 02/27/18 09:00 Room Air 02/27/18 09:00 98 116/75 02/27/18 08:00 98.9 20 20 118/78 (91) 98 02/27/18 05:25 98 116/75 02/27/18 04:00 99.1 98 19 116/75 (89) 97 02/27/18 00:00 99.1 98 19 124/78 (93) 96 02/26/18 21:00 Room Air 02/26/18 20:00 98.7 92 19 131/86 (101) 96 02/26/18 18:29 Room Air Intake and Output 02/26/18 02/27/18 19:00 07:00 Intake Total 350 ml Output Total 250 ml 700 ml Balance -250 ml -350 ml Intake Oral 350 ml Output Urine Total 250 ml 700 ml # Voids 2 # Bowel Movements 3 1 Laboratory Tests 02/27/18 05:45: White Blood Count 8.7, Red Blood Count 3.87L, Hemoglobin 10.6L, Hematocrit 33.4L , Mean Corpuscular Volume 86, Mean Corpuscular Hemoglobin 27.4, Mean Corpuscular Hemoglobin Concent 31.8L, Red Cell Distribution Width 14.9H, Platelet Count 213, Mean Platelet Volume 4.9L, Neutrophils (%) (Auto) 63.3, Lymphocytes (%) (Auto) 16.3L, Monocytes (%) (Auto) 11.0H, Eosinophils (%) (Auto ) 8.0H, Basophils (%) (Auto) 1.4, Sodium Level 139, Potassium Level 3.2L, Chloride Level 107, Carbon Dioxide Level 27, Anion Gap 5, Blood Urea Nitrogen 7 , Creatinine 0.9, Estimat Glomerular Filtration Rate > 60, Glucose Level 77, Calcium Level 8.0L, Alpha Fetoprotein [Pending] Height (Feet): 5 Height (Inches): 9.00 Weight (Pounds): 160 Objective WDWN AA man NCAT supple CTA RRR abd soft no edema non focal Nadia Prado MD Feb 27, 2018 17:49
[2018-02-27] MEDS: Spironolactone 50mg tab ORAL SCH (19:19)
[2018-02-27] MEDS: Tamsulosin 0.4mg cap ORAL SCH (20:30)
[2018-02-28] VITALS (7 sets, daily range): BP systolic 97–110; BP diastolic 57–71
[2018-02-28] MEDS: Propranolol 10mg tab ORAL SCH ×3 (05:36→21:52)
[2018-02-28 08:02] LABS: ANION GAP 6 mmol/L (5-15); BLOOD UREA NITROGEN 6 mg/dL (7-18); CALCIUM 7.6 MG/DL (8.5-10.1); CARBON DIOXIDE 28 MMOL/L (21-32); CHLORIDE 105 MMOL/L (98-107); POTASSIUM 3.5 MMOL/L (3.5-5.1); SODIUM 139 MMOL/L (136-145)
[2018-02-28] MEDS: Spironolactone 50mg tab ORAL SCH (09:03)
[2018-02-28] MEDS: Aspirin EC 81mg tab ORAL SCH (09:03)
--- NOTE | 2018-02-28 15:49 | General Progress Note ---
Assessment/Plan Assessment/Plan Assessment - EtOH Cirrhosis (Hep B/C negative recently) - Progressive ascites - Portal HTN - h/o mild varicies - h/o hemorrhoids Recommendations - Therapeutic paracentesis - Nonselective beta-heather for varix history - Inderal (will increase dose and d/c amlodipine) - check ascites cytology (AFP negative recently) - Sodium restriction - correction Lasix / aldactone Subjective Allergies: Coded Allergies: No Known Allergies (Unverified , 11/16/14) Subjective above noted no new complaints no radiology dept staff to do paracentesis over weekend so procedure postponed to Thursday Objective Last 24 Hour Vital Signs Date Time Temp Pulse Resp B/P (MAP) Pulse Ox O2 Delivery O2 Flow Rate FiO2 02/28/18 13:34 87 130/75 02/28/18 12:00 97.1 88 20 110/69 (83) 97 02/28/18 09:03 89 108/71 02/28/18 09:00 Room Air 02/28/18 08:00 97.2 90 19 108/67 (81) 96 02/28/18 05:36 89 108/71 02/28/18 04:24 97.3 89 18 108/71 (83) 94 02/28/18 00:00 96.8 92 17 100/66 (77) 95 02/27/18 22:00 86 109/70 02/27/18 21:00 Room Air 02/27/18 20:00 96.8 86 17 109/70 (83) 92 02/27/18 16:00 96.6 76 18 110/73 (85) 97 Intake and Output 02/27/18 02/28/18 18:59 06:59 Intake Total 1240 ml Output Total 300 ml Balance 940 ml Intake Oral 1240 ml Output Urine Total 300 ml # Voids 5 3 # Bowel Movements 1 Laboratory Tests 02/28/18 06:05: Sodium Level 139, Potassium Level 3.5, Chloride Level 105, Carbon Dioxide Level 28, Anion Gap 6, Blood Urea Nitrogen 6L, Creatinine 1.0, Estimat Glomerular Filtration Rate > 60, Glucose Level 91, Calcium Level 7.6L Height (Feet): 5 Height (Inches): 9.00 Weight (Pounds): 160 Objective WDWN AA man NCAT supple CTA RRR abd soft no edema non focal Nadia Prado MD Feb 28, 2018 15:49
[2018-02-28] MEDS: Tamsulosin 0.4mg cap ORAL SCH (20:55)
--- NOTE | 2018-02-28 21:26 | Pulmonology Progress Note ---
Assessment/Plan Assessment/Plan Pulmonary Progress Note REASON FOR ADMISSION: Profound abdominal distention, ascites, and significant anasarca. HISTORY: This is a 57-year-old male seen at the nursing facility today. The patient was noted to have significant abdominal distention with positive fluid wave. The patient was seen and evaluated, also noted to have worsening anasarca. The patient therefore was transferred for evaluation in the ER. In the ER, the patient was noted to have the above-noted findings. The patient previously was admitted for significant anemia, although currently the patient is stable from that standpoint. The patient admits to some mild shortness of breath. Liver enzymes are slightly elevated as well. The patient's care discussed and reviewed. The patient's findings apparently were semi-acute overall. The patient has failure to thrive and has not been very ambulatory. PAST MEDICAL HISTORY: Notable for spinal stenosis, BPH, anemia status post transfusion, history of ascites, history of cirrhosis, and history of hypertension. MEDICATIONS: Reviewed. ALLERGIES: Reviewed. SOCIAL HISTORY: Resides in a care home facility. Currently, nonsmoker, but does have a history of alcohol abuse. REVIEW OF SYSTEMS: All 10 points reviewed and otherwise negative with the exception of the above. The patient does have benign prostatic hyperplasia. Does have a history of reflux. Does have a history of anemia. Does have a history of transfusion and hypertension. PHYSICAL EXAMINATION: GENERAL: The patient is an ill-appearing male. VITAL SIGNS NOTED HEENT: Fairly negative. Extraocular movements are grossly intact. There is no asterixis. NECK: Supple. LUNGS: With moderate breath sounds, slightly reduced. CARDIAC: Normal S1 and S2. Regular rate and rhythm without clear murmurs, rubs, or gallops. ABDOMEN: Significantly distended with a positive fluid wave. Positive bowel sounds, but reduced. EXTREMITIES: With noted significant edema of the lower extremities. LABORATORY DATA: Lab data reviewed. White count 9.1, hemoglobin 10.9, and platelets of 215,000. Chemistry is noted. The liver enzymes are slightly elevated. Alkaline phosphatase 138. Albumin 1.7. IMPRESSION: 1. Ascites, doubt peritonitis at present. 2. Evidence of mild transaminitis. 3. Probable cirrhosis. 4. Severe protein-calorie malnutrition. 5. History of anemia with history of transfusion. 6. Chronic back pain. RECOMMENDATIONS: 1. Supportive care. 2. Proceed with paracentesis if it is possible for diagnostic and therapeutic purposes. 3. Diuresis PRN 4. GI evaluation. 5. Fluid restriction. 6. Resume penitentiary medications. 7. Stabilize and discharge the patient back when improved. Subjective ROS Limited/Unobtainable: No Allergies: Coded Allergies: No Known Allergies (Unverified , 11/16/14) Objective Last 24 Hour Vital Signs Date Time Temp Pulse Resp B/P (MAP) Pulse Ox O2 Delivery O2 Flow Rate FiO2 02/28/18 16:00 97.7 20 110/66 (81) 96 02/28/18 13:34 87 130/75 02/28/18 12:00 97.1 88 20 110/69 (83) 97 02/28/18 09:03 89 108/71 02/28/18 09:00 Room Air 02/28/18 08:00 97.2 90 19 108/67 (81) 96 02/28/18 05:36 89 108/71 02/28/18 04:24 97.3 89 18 108/71 (83) 94 02/28/18 00:00 96.8 92 17 100/66 (77) 95 02/27/18 22:00 86 109/70 Intake and Output 02/27/18 02/28/18 19:00 07:00 Intake Total 1240 ml Output Total 300 ml Balance 940 ml Intake Oral 1240 ml Output Urine Total 300 ml # Voids 5 3 # Bowel Movements 1 Microbiology Date/Time Source Procedure Growth Status 02/26/18 21:20 Nose MRSA Culture - Final Staphylococcus Aureus - Mrsa Complete 02/26/18 21:20 Rectum - Preliminary Resulted 02/26/18 21:20 Rectum Received Laboratory Tests 02/28/18 06:05: Sodium Level 139, Potassium Level 3.5, Chloride Level 105, Carbon Dioxide Level 28, Anion Gap 6, Blood Urea Nitrogen 6L, Creatinine 1.0, Estimat Glomerular Filtration Rate > 60, Glucose Level 91, Calcium Level 7.6L Current Medications Medications (Trade) Dose Ordered Sig/Josesito Route PRN Reason Start Time Stop Time Status Last Admin Dose Admin Acetaminophen (Tylenol) 650 mg Q4H PRN ORAL Mild Pain/Temp > 100.5 02/26/18 19:00 03/28/18 18:59 02/27/18 10:01 Acetaminophen/ Hydrocodone Bitart ([place] 5/325) 1 tab Q4H PRN ORAL Severe Pain (Pain Scale 7-10) 02/26/18 19:00 03/05/18 18:59 Artificial Tears (Akwa-Tears) 2 drop BID PRN BOTH EYES Dry Eyes 02/26/18 19:00 03/28/18 18:59 Aspirin (Ecotrin) 81 mg DAILY ORAL 02/27/18 09:00 03/29/18 08:59 02/28/18 09:03 Carisoprodol (Soma) 350 mg THREE TIMES A DAY ORAL 02/27/18 09:00 03/29/18 08:59 02/28/18 17:38 Epoetin Arnie (Procrit (for non ESRD use)) 10,000 units THU-THU-THU SUBQ 02/26/18 21:00 03/28/18 20:59 02/26/18 21:16 Ferrous Sulfate (Feosol) 325 mg THREE TIMES A DAY ORAL 02/27/18 09:00 03/29/18 08:59 02/28/18 17:37 Finasteride (Proscar) 1 mg DAILY ORAL 02/27/18 09:00 03/29/18 08:59 02/28/18 09:02 Furosemide (Lasix) 20 mg DAILY IV 02/27/18 09:00 03/29/18 08:59 02/28/18 09:02 Gabapentin (Neurontin) 600 mg THREE TIMES A DAY ORAL 02/27/18 09:00 03/29/18 08:59 02/28/18 17:38 Iopamidol (Isovue-300 100ml) 100 ml NOW PRN INJ Radiology Procedure 02/26/18 10:45 Ipratropium [place] (Atrovent) 500 mcg Q4H PRN HHN Shortness of Breath 02/26/18 19:00 03/03/18 18:59 Ondansetron HCl (Zofran ODT) 8 mg Q6H PRN ORAL Nausea & Vomiting 02/26/18 19:00 03/28/18 18:59 Pantoprazole (Protonix) 40 mg EVERY 12 HOURS ORAL 02/26/18 21:00 03/28/18 20:59 02/28/18 20:55 Propranolol HCl (Inderal) 20 mg Q8HR ORAL 02/28/18 22:00 1/14/19 05:59 Spironolactone (Aldactone) 50 mg DAILY ORAL 02/27/18 18:00 03/29/18 17:59 02/28/18 09:03 Tamsulosin HCl (Flomax) 0.4 mg BEDTIME ORAL 02/26/18 21:00 03/28/18 20:59 02/28/18 20:55 Adriel Kenyon MD Feb 28, 2018 21:26
[2018-03-01] VITALS: BP 118/51
[2018-03-01 04:00] VITALS: BP 101/62
[2018-03-01] MEDS: Propranolol 10mg tab ORAL SCH ×2 (05:39→13:15)
--- NOTE | 2018-03-01 07:21 | General Progress Note ---
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 Subjective Allergies: Coded Allergies: No Known Allergies (Unverified , 11/16/14) Subjective above noted no new complaints paracentesis scheduled for today Objective Last 24 Hour Vital Signs Date Time Temp Pulse Resp B/P (MAP) Pulse Ox O2 Delivery O2 Flow Rate FiO2 03/01/18 05:39 80 101/62 03/01/18 04:00 97.6 80 17 101/62 (75) 91 03/01/18 00:00 97.5 89 18 118/51 (73) 92 02/28/18 21:52 87 98/63 02/28/18 21:49 87 98/63 (75) 02/28/18 21:00 Room Air 02/28/18 20:00 97.0 89 18 97/57 (70) 93 02/28/18 16:00 97.7 20 110/66 (81) 96 02/28/18 13:34 87 130/75 02/28/18 12:00 97.1 88 20 110/69 (83) 97 02/28/18 09:03 89 108/71 02/28/18 09:00 Room Air 02/28/18 08:00 97.2 90 19 108/67 (81) 96 Intake and Output 02/28/18 03/01/18 19:00 07:00 Intake Total 1200 ml Output Total 350 ml 600 ml Balance 850 ml -600 ml Intake Oral 1200 ml Output Urine Total 350 ml 600 ml # Voids 8 5 # Bowel Movements 2 1 Height (Feet): 5 Height (Inches): 9.00 Weight (Pounds): 160 Objective WDWN AA man NCAT supple CTA RRR abd soft no edema non focal Nadia Prado MD Mar 01, 2018 07:21
[2018-03-01 07:56] VITALS: BP 102/61
[2018-03-01 09:12] LABS: ANION GAP 7 mmol/L (5-15); BLOOD UREA NITROGEN 5 mg/dL (7-18); CALCIUM 7.8 MG/DL (8.5-10.1); CARBON DIOXIDE 28 MMOL/L (21-32); CHLORIDE 104 MMOL/L (98-107); CREATININE 0.9 MG/DL (0.55-1.30); POTASSIUM 3.5 MMOL/L (3.5-5.1); SODIUM 139 MMOL/L (136-145)
[2018-03-01] MEDS: Aspirin EC 81mg tab ORAL SCH (09:20)
[2018-03-01] MEDS: Spironolactone 50mg tab ORAL SCH (09:21)
[2018-03-01 10:41] LABS: INR 1.5 (0.9-1.1)
--- NOTE | 2018-03-01 11:00 | General Progress Note ---
Assessment/Plan Assessment/Plan IMPRESSION: 1. Ascites, doubt peritonitis at present. 2. Evidence of mild transaminitis. 3. Probable cirrhosis. 4. Severe protein-calorie malnutrition. 5. History of anemia with history of transfusion. 6. Chronic back pain. PLAN await tap hope to dc after tap continue same gi noted keep negative impression, plan, and exam edited and reviewed in detail care discussed with RN Subjective Allergies: Coded Allergies: No Known Allergies (Unverified , 11/16/14) Subjective comfortable overall no distress Objective Last 24 Hour Vital Signs Date Time Temp Pulse Resp B/P (MAP) Pulse Ox O2 Delivery O2 Flow Rate FiO2 03/01/18 09:51 97.7 03/01/18 07:56 97.7 90 20 102/61 (75) 94 03/01/18 05:39 80 101/62 03/01/18 04:00 97.6 80 17 101/62 (75) 91 03/01/18 00:00 97.5 89 18 118/51 (73) 92 02/28/18 21:52 87 98/63 02/28/18 21:49 87 98/63 (75) 02/28/18 21:00 Room Air 02/28/18 20:00 97.0 89 18 97/57 (70) 93 02/28/18 16:00 97.7 20 110/66 (81) 96 02/28/18 13:34 87 130/75 02/28/18 12:00 97.1 88 20 110/69 (83) 97 Intake and Output 02/28/18 03/01/18 19:00 07:00 Intake Total 1200 ml Output Total 350 ml 600 ml Balance 850 ml -600 ml Intake Oral 1200 ml Output Urine Total 350 ml 600 ml # Voids 8 5 # Bowel Movements 2 1 Laboratory Tests 03/01/18 07:36: Sodium Level 139, Potassium Level 3.5, Chloride Level 104, Carbon Dioxide Level 28, Anion Gap 7, Blood Urea Nitrogen 5L, Creatinine 0.9, Estimat Glomerular Filtration Rate > 60, Glucose Level 90, Calcium Level 7.8L 03/01/18 09:45: Prothrombin Time 15.9H, Prothromb Time International Ratio 1.5H, Activated Partial Thromboplast Time 37H Height (Feet): 5 Height (Inches): 9.00 Weight (Pounds): 160 Objective GENERAL: The patient is an ill-appearing male. HEENT: Fairly negative. Extraocular movements are grossly intact. There is no asterixis. NECK: Supple. LUNGS: With moderate breath sounds, reduced. CARDIAC: Normal S1 and S2. Regular rate and rhythm without clear murmurs, rubs, or gallops. ABDOMEN: Significantly distended with a positive fluid wave. Positive bowel sounds, but reduced. EXTREMITIES: With noted significant edema of the lower extremities. Warren Cardoza MD Mar 01, 2018 11:00
[2018-03-01 12:00] VITALS: BP 112/73
[2018-03-01 16:00] VITALS: BP 109/69
--- NOTE | 2018-03-01 16:04 | Pre-Procedure Note/Attestation ---
Pre-Procedure Note/Attestation Complete Prior to Procedure Planned Procedure: not applicable Procedure Narrative: paracentesis Indications for Procedure Pre-Operative Diagnosis: ascites Attestation I attest that I discussed the nature of the procedure; its benefits; risks and complications; and alternatives (and the risks and benefits of such alternatives ), prior to the procedure, with the patient (or the patient's legal distribution sales representative). I attest that, if there was a reasonable possibility of needing a blood transfusion, the patient (or the patient's legal distribution sales representative) was given the [facility] standardized written summary, pursuant to the Ernst Ivan Blood Safety Act ([place] Health and Safety Code # 1645, as amended). I attest that I re-evaluated the patient just prior to the surgery and that there has been no change in the patient's H&P, except as documented below: Lee Ferrer MD Mar 01, 2018 16:04
--- NOTE | 2018-03-01 16:05 | Brief Operative Note ---
Immediate Post Operative Note Operative Note Chief Complaint: distention Pre-op Diagnosis: ascites Procedure: Paracentesis Post-op Diagnosis: same as pre-op Surgeon: Lenore Jimenez Anesthesia: local Specimen: yes - fluid sent to lab Complications: none Condition: stable Fluids: none Implant(s) used?: No Lee Jimenez MD Mar 01, 2018 16:05
--- NOTE | 2018-03-02 08:32 | Diagnostic Imaging Report ---
Indications: Ascites Technique: Ultrasound used to localize optimal puncture site. Sterile prepping and draping right lower quadrant. Local anesthesia with 1% lidocaine. Under real-time ultrasound guidance, puncture peritoneal space using paracentesis needle. Stylet removed. Catheter placed to vacuum bottle suction. Total 4.8 liters of fluid aspirated. Patient tolerated procedure well, without immediate complication. Findings: Followup sonography demonstrates complete resolution of peritoneal fluid. Impression: Successful ultrasound-guided paracentesis, yielding 4.8 liters of fluid
--- NOTE | 2018-03-03 08:12 | Discharge Summary ---
Discharge Summary Discharge Summary _ DATE OF ADMISSION: 02/26/2018 DATE OF DISCHARGE: 03/01/2018 DISCHARGED BY: Dr. Cardoza REASON FOR ADMISSION: 57 years old male with past medical history of cirrhosis, ascites, hypertension , BPH, anemia ,spinal stenosis ,was seen in the nursing facility and noted to have significant abdominal distention with positive fluid wave. Patient was subsequently transferred for evaluation to the emergency department. Patient reported mild shortness of breath. Patient had a previous admission in December 2017 , when he was found to have liver disease. At that admission he had abdominal ultrasound , which revealed evidence of cirrhosis with esophageal varices. Hepatitis B and C serology were negative. Cirrhosis presumed to be due to previous history of alcohol use. Patient stopped drinking alcohol few months ago. CT of the abdomen and pelvis revealed moderate ascites likely on the basis of chronic liver disease/cirrhosis , given the signs of portal hypertension, including recanalized umbilical vein and splenomegaly. Portosystemic varices also suspected in the upper abdomen. Anasarca. Cholelithiasis. Trace bilateral pleural effusion and posterior basal atelectasis. Laboratory workup revealed no leukocytosis ,hemoglobin 10.9 hematocrit 25.7. INR 1.5. AST 42, ALT 20 ,albumin 1.7. Patient admitted with diagnoses of ascites, mild transaminitis, probable cirrhosis, severe protein calorie malnutrition, anemia with history of blood transfusion, chronic back pain. CONSULTANTS: GI specialist dr. Prado [facility]SE: Patient admitted. GI consult was requested. Diuresis provided with labia and Aldactone, and sodium restriction was implemented. senior living medication continued. GI specialist clsoely followed. Patient undergone therapeutic paracentesis which yielded 4.8 L of ascitic fluid. Patient started on nonselective beta-heather / propranolol for varices history and management of portal hypertension. Alpha-fetoprotein negative. GI specialist recommended long-term diuresis with Lasix and Aldactone. Hemoglobin and hematocrit were closely monitored, remained stable. Iron supplement continued. Flomax and Proscar continued. GI prophylaxis provided. Pain management addressed as needed. Patient was working with physical therapist. Blood pressure was managed with calcium channel heather and beta heather. Aspirin continued. Supportive care provided. Patient was counseled to continue abstinence from alcohol. Patient was stabilized and ready for discharge to the senior care facility for continuation of care. FINAL DIAGNOSES: Progressive ascites status post paracentesis-4.8 L ETOH cirrhosis Portal hypertension Anemia Severe protein calorie malnutrition HTN Chronic back pain Mild transaminitis DISCHARGE MEDICATIONS: See Medication Reconciliation list. DISCHARGE INSTRUCTIONS: Patient was discharged to the senior care facility. Follow up with medical doctor at the facility. I have been assigned to dictate discharge summary for this account. I was not involved in the patient's management. Lesly Albarran NP Mar 03, 2018 08:12
== END 2018-03-01 18:00 | DRG 432 ==
LOC: EDBD 10:23 → EMR 12:04 → EDBEDREQ 14:46 → EDBEDREQSVC 14:46 → 4E 15:00 → EDBEDREQ 16:14 → 4E 02-27 04:37
PROC: 0W9G3ZZ Drainage of Peritoneal Cavity, Percutaneous Approach (ICD-10-PCS; principal; 2018-02-26)
DX: K70.31 Alcoholic cirrhosis of liver with ascites (principal); E43 Unspecified severe protein-calorie malnutrition; K76.6 Portal hypertension; I69.351 Hemiplegia and hemiparesis following cerebral infarction affecting right dominant side; D64.9 Anemia, unspecified; G89.29 Other chronic pain; M54.9 Dorsalgia, unspecified; I10 Essential (primary) hypertension; R74.0 Nonspecific elevation of levels of transaminase and lactic acid dehydrogenase [LDH]; Z98.1 Arthrodesis status; N40.0 Benign prostatic hyperplasia without lower urinary tract symptoms
CPT/HCPCS: 36415; 74177; 76942; 80048; 80053; 81003; 82105; 83690; 85025; 85610; 85730; 87070; 87081; 87205; 88104; 93970; 99285; J8499

== ENCOUNTER 2018-03-17 12:46 | Emergency (ER) | payer MEDICARE, OTHER ==
[~2018-03-17] VITALS: Ht 182.9 cm; Wt 86.2 kg
[2018-03-17 13:00] VITALS: BP 123/80
--- NOTE | 2018-03-17 13:00 | NUR ---
ED Nurse Note: PT BROUGHT IN BY AMBULANCE FROM [facility] FOR PARACENTESIS. PT C/O ABDOMINAL DISTENTION X 1 MONTH. PT STATES HE HAS ALREADY HAD A PARACENTESIS ON THE RIGHT SIDE X 1 MONTH AGO AND IS HERE FOR THE LEFT SIDE TODAY. ABDOMEN APPEARS DISTENDED AND ROUND.
[2018-03-17 14:38] LABS: BASOPHILS % (AUTO) 2.7 % (0.0-2.0); EOSINOPHILS % (AUTO) 7.6 % (0.0-3.0); HEMOGLOBIN 10.5 G/DL (14.2-18.0); INR 1.4 (0.9-1.1); LYMPHOCYTES % (AUTO) 23.7 % (20.0-45.0); MEAN CORPUSCULAR VOLUME 89 FL (80-99); MONOCYTES % (AUTO) 9.4 % (1.0-10.0); NEUTROPHILS % (AUTO) 56.6 % (45.0-75.0); PLATELET COUNT 237 K/UL (150-450); RED BLOOD COUNT 3.83 M/UL (4.70-6.10); RED CELL DISTRIBUTION WIDTH 15.3 % (11.6-14.8); WHITE BLOOD COUNT 8.1 K/UL (4.8-10.8)
[2018-03-17 14:42] LABS: ANION GAP 6 mmol/L (5-15); BLOOD UREA NITROGEN 10 mg/dL (7-18); CALCIUM 8.1 MG/DL (8.5-10.1); CARBON DIOXIDE 28 MMOL/L (21-32); CHLORIDE 106 MMOL/L (98-107); CREATININE 0.9 MG/DL (0.55-1.30); POTASSIUM 3.7 MMOL/L (3.5-5.1); SODIUM 140 MMOL/L (136-145)
[2018-03-17 14:47] LABS: ALANINE AMINOTRANSFERASE 22 U/L (12-78); ALBUMIN 1.6 G/DL (3.4-5.0); ALBUMIN/GLOBULIN RATIO 0.3 (1.0-2.7); ALKALINE PHOSPHATASE 125 U/L (46-116); ASPARTATE AMINO TRANSFERASE 40 U/L (15-37); BILIRUBIN,TOTAL 0.7 MG/DL (0.2-1.0)
--- NOTE | 2018-03-17 15:27 | Emergency Room Report ---
History of Present Illness General Chief Complaint: General Complaint Source: Patient (Robel Mcqueen MD) Present Illness HPI 57-year-old male presents ED for evaluation. Patient sent for abdominal distention. From [facility] facility. History of liver cirrhosis. Distention has been accumulating for several weeks now. Patient states he had it "tapped" about one month ago at another hospital. Denies abdominal pain. Denies nausea or vomiting. Denies fevers or chills. No other aggravating relieving factors. Denies any other associated symptoms (Robel Mcqueen MD) Allergies: Coded Allergies: No Known Allergies (Unverified , 11/16/14) Patient History Past Medical History: HTN, CVA/TIA, other - cirrhosis Past Surgical History: none Pertinent Family History: none Social History: Denies: smoking, alcohol use, drug use Immunizations: UTD Reviewed Nursing Documentation: PMH: Agreed; PSxH: Agreed (Robel Mcqueen MD) Nursing Documentation-PMH Hx Cardiac Problems: Yes Hx Hypertension: Yes Hx Cancer: No Hx Gastrointestinal Problems: Yes Hx Neurological Problems: Yes - spinal stenosis,anemia,liver cirrhosis Hx Cerebrovascular Accident: Yes - 2015; L weak Hx Weakness: Yes (Robel Mcqueen MD) Review of Systems All Other Systems: negative except mentioned in HPI (Robel Mcqueen MD) Physical Exam Vital Signs Date Time Temp Pulse Resp B/P (MAP) Pulse Ox O2 Delivery O2 Flow Rate FiO2 03/17/18 12:53 98.1 78 16 130/80 98 Room Air Sp02 EP Interpretation: reviewed, normal General Appearance: no apparent distress, alert, GCS 15, non-toxic Head: normocephalic Eyes: bilateral eye normal inspection, bilateral eye PERRL ENT: normal ENT inspection Neck: normal inspection Respiratory: chest non-tender, lungs clear, normal breath sounds, speaking full sentences Cardiovascular #1: regular rate, rhythm, no edema Gastrointestinal: normal bowel sounds, non tender, soft, no guarding, no rebound, distended Rectal: deferred Genitourinary: no CVA tenderness Musculoskeletal: normal inspection Neurologic: alert, oriented x3, responsive, motor strength/tone normal, sensory intact, speech normal Psychiatric: normal inspection Skin: normal inspection Lymphatic: normal inspection (Robel Mcqueen MD) Medical Decision Making Diagnostic Impression: Primary Impression: Cirrhosis Additional Impression: Ascites Labs Test 03/17/18 14:05 White Blood Count 8.1 K/UL (4.8-10.8) Red Blood Count 3.83 M/UL (4.70-6.10) Hemoglobin 10.5 G/DL (14.2-18.0) Hematocrit 34.0 % (42.0-52.0) Mean Corpuscular Volume 89 FL (80-99) Mean Corpuscular Hemoglobin 27.5 PG (27.0-31.0) Mean Corpuscular Hemoglobin Concent 30.9 G/DL (32.0-36.0) Red Cell Distribution Width 15.3 % (11.6-14.8) Platelet Count 237 K/UL (150-450) Mean Platelet Volume 5.0 FL (6.5-10.1) Neutrophils (%) (Auto) 56.6 % (45.0-75.0) Lymphocytes (%) (Auto) 23.7 % (20.0-45.0) Monocytes (%) (Auto) 9.4 % (1.0-10.0) Eosinophils (%) (Auto) 7.6 % (0.0-3.0) Basophils (%) (Auto) 2.7 % (0.0-2.0) Prothrombin Time 14.2 SEC (9.30-11.50) Prothromb Time International Ratio 1.4 (0.9-1.1) Activated Partial Thromboplast Time 36 SEC (23-33) Sodium Level 140 MMOL/L (136-145) Potassium Level 3.7 MMOL/L (3.5-5.1) Chloride Level 106 MMOL/L (98-107) Carbon Dioxide Level 28 MMOL/L (21-32) Anion Gap 6 mmol/L (5-15) Blood Urea Nitrogen 10 mg/dL (7-18) Creatinine 0.9 MG/DL (0.55-1.30) Estimat Glomerular Filtration Rate > 60 mL/min (>60) Glucose Level 84 MG/DL (74-106) Calcium Level 8.1 MG/DL (8.5-10.1) Total Bilirubin 0.7 MG/DL (0.2-1.0) Aspartate Amino Transf (AST/SGOT) 40 U/L (15-37) Alanine Aminotransferase (ALT/SGPT) 22 U/L (12-78) Alkaline Phosphatase 125 U/L (46-116) Total Protein 7.3 G/DL (6.4-8.2) Albumin 1.6 G/DL (3.4-5.0) Globulin 5.7 g/dL Albumin/Globulin Ratio 0.3 (1.0-2.7) (Robel Mcqueen MD) ER Course See above note. 5 liters removed. Patient improved. Abd soft without tenderness. Last paracentesis in February. Stable for outpatient observation and treatment. Dr. Cardoza states not need to run labs analysis on peritoneal fluid. (Adriel Garcia MD) Last Vital Signs Date Time Temp Pulse Resp B/P (MAP) Pulse Ox O2 Delivery O2 Flow Rate FiO2 03/17/18 13:00 96 18 Room Air 03/17/18 13:00 98.4 123/80 98 Status: improved (Robel Mcqueen MD) Status: improved (Adriel Garcia MD) Disposition: XF SNF Condition: Improved Referrals: Warren Cardoza MD (PCP) Robel Mcqueen MD Mar 17, 2018 15:26 Adriel Garcia MD Mar 17, 2018 17:28
[2018-03-17] MEDS ORDERED: ARTIFICIAL TEA1 EAC2 OP (15:38)
--- NOTE | 2018-03-17 15:50 | NUR ---
ED Nurse Note: CONSENT FORM SIGNED AT BEDSIDE. PT TO RADIOLOGY FOR PARACENTESIS.
--- NOTE | 2018-03-17 16:48 | NUR ---
ED Nurse Note: PT BACK FROM PARACENTESIS VIA WHEELCHAIR.
[2018-03-17 16:57] VITALS: BP 135/89
[2018-03-17 18:00] VITALS: BP 136/80
--- NOTE | 2018-03-17 19:41 | NUR ---
ED Nurse Note: Dr. Garcia informed that five liters of fluid was removed with paracentesis.
[2018-03-17 20:31] VITALS: BP 136/80
--- NOTE | 2018-03-17 20:34 | NUR ---
ED Nurse Note: Report given to Marisabel at [facility].
--- NOTE | 2018-03-18 09:48 | Diagnostic Imaging Report ---
Indications: Ascites Procedure: Informed consent obtained. Ultrasound used to localize optimal puncture site. Sterile prepping and draping over the optimum site. Local anesthesia with 1% lidocaine. Under real-time ultrasound guidance, puncture of the peritoneal space performed using paracentesis needle. Digital image was saved and archived. Stylet removed. Catheter placed to vacuum bottle suction. Fluid was aspirated. Patient tolerated procedure well, without immediate complication. Findings: Followup sonography demonstrates complete resolution of peritoneal fluid Impression: Successful ultrasound-guided paracentesis, yielding 5 liters of fluid
== END 2018-03-17 21:15 ==
LOC: EDBD 12:46 → EMR 13:31
DX: K74.60 Unspecified cirrhosis of liver (principal); R18.8 Other ascites; I10 Essential (primary) hypertension; Z86.73 Personal history of transient ischemic attack (TIA), and cerebral infarction without residual deficits
CPT/HCPCS: 36415; 76942; 80053; 85025; 85610; 85730; 99284

== ENCOUNTER 2018-04-09 07:10 | Emergency (ER) | payer MEDICARE, OTHER ==
[~2018-04-09] VITALS: Ht 172.7 cm; Wt 81.6 kg
[2018-04-09 07:15] VITALS: BP 112/78
--- NOTE | 2018-04-09 07:15 | NUR ---
ED Nurse Note: Pt [facility]JA from [facility] for [place]. Pt AAOx4 and in pleasant mood. VSS, Skin dry but no pressure ulcer noted, having diaper as stating "I'm not incontinent but sometimes I cannot make it to the bathroom." Abdominal distend and BLE non-pitting edema noted. Calm and cooperative.
--- NOTE | 2018-04-09 07:16 | Emergency Room Report ---
History of Present Illness General Source: Patient, EMS Present Illness HPI He denies pain patient presents with abdominal distention. History of ascites. His last here March 17 for ultrasound-guided paracentesis. He says the fluid has reaccumulated and is tender. Denies any fevers or chills. To the nurse but states that he is uncomfortable to me. This is diffusely through his abdomen. He is eating without nausea, vomiting nausea, vomiting, diarrhea. Denies dysuria. Denies confusion, headache. The patient has generalized weakness. He is status post CVA. He has edema of his lower extremities but denies any calf pain. Denies depression. In the past he has tested negative for hepatitis B hepatitis A and hepatitis C. He was admitted in February and carries these diagnoses: Progressive ascites status post paracentesis-4.8 L ETOH cirrhosis Portal hypertension Anemia Severe protein calorie malnutrition HTN Chronic back pain Mild transaminitis Allergies: Coded Allergies: No Known Allergies (Unverified , 11/16/14) Patient History Past Medical History: see triage record Social History: Denies: smoking, alcohol use Social History Narrative snf facility Reviewed Nursing Documentation: PMH: Agreed; PSxH: Agreed Nursing Documentation-PMH Hx Cardiac Problems: Yes Hx Hypertension: Yes Hx Cancer: No Hx Gastrointestinal Problems: Yes Hx Neurological Problems: Yes - spinal stenosis,anemia,liver cirrhosis Hx Cerebrovascular Accident: Yes - 2015; L weak Hx Weakness: Yes Review of Systems All Other Systems: negative except mentioned in HPI Physical Exam Vital Signs Date Time Temp Pulse Resp B/P (MAP) Pulse Ox O2 Delivery O2 Flow Rate FiO2 04/09/18 07:15 87 18 Room Air 96 04/09/18 07:15 98.3 112/78 96 Sp02 EP Interpretation: reviewed, normal General Appearance: no apparent distress, GCS 15, Chronically Ill Head: normocephalic Eyes: bilateral eye normal inspection, bilateral eye PERRL ENT: moist mucus membranes - Poor dentition Neck: supple Respiratory: lungs clear, normal breath sounds Cardiovascular #1: regular rate, rhythm Cardiovascular #2: 2+ radial (R) Gastrointestinal: normal inspection, normal bowel sounds, no guarding, no rebound, distended, tenderness - Diffuse Musculoskeletal: back normal, normal range of motion Neurologic: alert, oriented x3, other - No asterixis, grossly normal Psychiatric: mood/affect normal Skin: normal inspection, warm/dry Medical Decision Making Diagnostic Impression: Primary Impression: Ascites Qualified Codes: R18.8 - Other ascites ER Course Patient presents with abdominal distention. Ascites and is here for ultrasound guided paracentesis. We need to ascertain that there is no thrombocytopenia or coagulopathy before this is done. Labs with normal platelet counts, minimally elevated INR. Urinalysis is clear. Paracentesis performed and 4 L removed. poultry field service technician reports that the fluid was somewhat turbid. Discussed with Dr. Conteh who states there is no need to check paracentesis fluid for lab or cytology. Patient is remarkably improved. The discomfort in his abdomen is resolved. Patient is stable for outpatient observation and treatment Laboratory Tests Test 04/09/18 08:00 White Blood Count 8.0 K/UL (4.8-10.8) Red Blood Count 4.53 M/UL (4.70-6.10) L Hemoglobin 12.4 G/DL (14.2-18.0) L Hematocrit 39.7 % (42.0-52.0) L Mean Corpuscular Volume 88 FL (80-99) Mean Corpuscular Hemoglobin 27.5 PG (27.0-31.0) Mean Corpuscular Hemoglobin Concent 31.4 G/DL (32.0-36.0) L Red Cell Distribution Width 16.7 % (11.6-14.8) H Platelet Count 272 K/UL (150-450) Mean Platelet Volume 4.8 FL (6.5-10.1) L Neutrophils (%) (Auto) 57.4 % (45.0-75.0) Lymphocytes (%) (Auto) 23.5 % (20.0-45.0) Monocytes (%) (Auto) 11.6 % (1.0-10.0) H Eosinophils (%) (Auto) 5.6 % (0.0-3.0) H Basophils (%) (Auto) 1.9 % (0.0-2.0) Prothrombin Time 13.0 SEC (9.30-11.50) H Prothrombin Time INR 1.2 (0.9-1.1) H PTT 35 SEC (23-33) H Urine Color Brown Urine Appearance Clear Urine pH 7 (4.5-8.0) Urine Specific [place] 1.010 (1.005-1.035) Urine Protein 1+ (NEGATIVE) H Urine Glucose (UA) Negative (NEGATIVE) Urine Ketones Negative (NEGATIVE) Urine Blood 1+ (NEGATIVE) H Urine Nitrite Negative (NEGATIVE) Urine Bilirubin Negative (NEGATIVE) Urine Urobilinogen 4 MG/DL (0.0-1.0) H Urine Leukocyte Esterase 1+ (NEGATIVE) H Urine RBC 0-2 /HPF (0 - 0) H Urine WBC 0-2 /HPF (0 - 0) Urine Squamous Epithelial Cells None /LPF (NONE/OCC) Urine Bacteria None /HPF (NONE) Sodium Level 141 MMOL/L (136-145) Potassium Level 4.2 MMOL/L (3.5-5.1) Chloride Level 105 MMOL/L (98-107) Carbon Dioxide Level 28 MMOL/L (21-32) Anion Gap 8 mmol/L (5-15) Blood Urea Nitrogen 7 mg/dL (7-18) Creatinine 0.9 MG/DL (0.55-1.30) Estimate Glomerular Filtration Rate > 60 mL/min (>60) Glucose Level 88 MG/DL (74-106) Calcium Level 8.4 MG/DL (8.5-10.1) L Total Bilirubin 0.8 MG/DL (0.2-1.0) Aspartate Amino Transferase (AST) 42 U/L (15-37) H Alanine Aminotransferase (ALT) 20 U/L (12-78) Alkaline Phosphatase 127 U/L (46-116) H Total Protein 8.5 G/DL (6.4-8.2) H Albumin 2.0 G/DL (3.4-5.0) L Globulin 6.5 g/dL Albumin/Globulin Ratio 0.3 (1.0-2.7) L Lipase 143 U/L (73-393) Last Vital Signs Date Time Temp Pulse Resp B/P (MAP) Pulse Ox O2 Delivery O2 Flow Rate FiO2 04/09/18 12:50 98.0 88 18 13/77 96 Room Air 04/09/18 07:15 96 Status: improved Disposition: XFER SNF Condition: Improved Adriel Garcia MD Apr 09, 2018 07:16
[2018-04-09] MEDS ORDERED: ALDACTAZIDE 251 EACH ORAL (07:30)
--- NOTE | 2018-04-09 07:46 | NUR ---
ED Nurse Note: US TECH MADE AWARE. WAITING ON COAGS TO BE RESULTED.
[2018-04-09 08:10] LABS: APPEARANCE,URINE CLEAR; BASOPHILS % (AUTO) 1.9 % (0.0-2.0); BILIRUBIN, URINE NEGATIVE (NEGATIVE); COLOR,URINE BROWN; EOSINOPHILS % (AUTO) 5.6 % (0.0-3.0); GLUCOSE, URINE (UA) NEGATIVE (NEGATIVE); HEMATOCRIT 39.7 % (42.0-52.0); HEMOGLOBIN 12.4 G/DL (14.2-18.0); KETONES,URINE NEGATIVE (NEGATIVE); LEUKOCYTE ESTERASE ,URINE 1+ (NEGATIVE); LYMPHOCYTES % (AUTO) 23.5 % (20.0-45.0); MEAN CORPUSCULAR VOLUME 88 FL (80-99); MONOCYTES % (AUTO) 11.6 % (1.0-10.0); NEUTROPHILS % (AUTO) 57.4 % (45.0-75.0); NITRITE,URINE NEGATIVE (NEGATIVE); PH,URINE 7 (4.5-8.0); PLATELET COUNT 272 K/UL (150-450); PROTEIN,URINE 1+ (NEGATIVE); RED BLOOD COUNT 4.53 M/UL (4.70-6.10); RED CELL DISTRIBUTION WIDTH 16.7 % (11.6-14.8); UROBILINOGEN,URINE 4 MG/DL (0.0-1.0)
[2018-04-09 08:18] LABS: ANION GAP 8 mmol/L (5-15); BLOOD UREA NITROGEN 7 mg/dL (7-18); CALCIUM 8.4 MG/DL (8.5-10.1); CARBON DIOXIDE 28 MMOL/L (21-32); CHLORIDE 105 MMOL/L (98-107); CREATININE 0.9 MG/DL (0.55-1.30); POTASSIUM 4.2 MMOL/L (3.5-5.1); SODIUM 141 MMOL/L (136-145)
[2018-04-09 08:23] LABS: ALANINE AMINOTRANSFERASE 20 U/L (12-78); ALBUMIN/GLOBULIN RATIO 0.3 (1.0-2.7); ALKALINE PHOSPHATASE 127 U/L (46-116); ASPARTATE AMINO TRANSFERASE 42 U/L (15-37); BILIRUBIN,TOTAL 0.8 MG/DL (0.2-1.0)
[2018-04-09 08:30] LABS: INR 1.2 (0.9-1.1)
[2018-04-09 09:15] VITALS: BP 132/77
--- NOTE | 2018-04-09 10:00 | NUR ---
ED Nurse Note: Pt is brought to paracentesis.
--- NOTE | 2018-04-09 10:58 | NUR ---
ED Nurse Note: Received verbal order that pt is ok to eat. [place] was provided with juice.
--- NOTE | 2018-04-09 11:02 | NUR ---
ED Nurse Note: Pt came back from paracentesis in stable condition. Rt lower abdomen has procedure site covered with dressing.
--- NOTE | 2018-04-09 11:26 | Brief Operative Note ---
Immediate Post Operative Note Operative Note Pre-op Diagnosis: Ascites Procedure: Paracentesis Post-op Diagnosis: same as pre-op Findings: consistent w/pre-op dx studies Surgeon: Lenore Jimenez Anesthesia: local Specimen: yes - fluid sent to lab Complications: none Condition: stable Fluids: none Implant(s) used?: No Lee Jimenez MD Apr 09, 2018 11:26
[2018-04-09 11:33] VITALS: BP 122/74
--- NOTE | 2018-04-09 12:01 | Diagnostic Imaging Report ---
Indications: Ascites Technique: Ultrasound used to localize optimal puncture site. Sterile prepping and draping . Local anesthesia with 1% lidocaine. Under real-time ultrasound guidance, puncture peritoneal space using paracentesis needle. Stylet removed. Catheter placed to vacuum bottle suction. Total 4 liters of slightly cloudy yellow fluid aspirated. Patient tolerated procedure well, without immediate complication. Findings: Followup sonography demonstrates near complete resolution of peritoneal fluid. Impression: Successful ultrasound-guided paracentesis, yielding 4 liters of fluid
[2018-04-09 12:50] VITALS: BP 13/77
--- NOTE | 2018-04-09 12:50 | NUR ---
ED Nurse Note: Pt was transferred by ambulance back to SNF by [facility]uko with 2 refractive surgeon in stable condition. Received discharge instruction and verbalized understanding.
== END 2018-04-09 12:50 ==
LOC: EDBD 07:10 → EMR 07:40
DX: K70.31 Alcoholic cirrhosis of liver with ascites (principal); I10 Essential (primary) hypertension; R53.1 Weakness; Z86.73 Personal history of transient ischemic attack (TIA), and cerebral infarction without residual deficits
CPT/HCPCS: 36415; 76942; 80053; 81003; 83690; 85025; 85610; 85730; 99284

== ENCOUNTER 2018-06-08 10:16 | Outpatient (CLI) | payer MEDICARE, OTHER ==
[~2018-06-08] VITALS: Ht 172.7 cm; Wt 72.1 kg
[~2018-06-08 10:16] MED LIST changes: +ALDACTAZIDE 251 EACH ORAL
[2018-06-08 10:50] VITALS: BP 122/75
[2018-06-08 12:05] VITALS: BP 146/86
[2018-06-08 12:45] VITALS: BP 152/82
--- NOTE | 2018-06-08 19:16 | Diagnostic Imaging Report ---
Indications: Ascites Procedure: Informed consent obtained. Ultrasound used to localize optimal puncture site. Sterile prepping and draping over the optimum site. Local anesthesia with 1% lidocaine. Under real-time ultrasound guidance, puncture of the peritoneal space performed using paracentesis needle. Digital image was saved and archived. Stylet removed. Catheter placed to vacuum bottle suction. Fluid was aspirated. Patient tolerated procedure well, without immediate complication. Findings: Followup sonography demonstrates complete resolution of peritoneal fluid Impression: Successful ultrasound-guided paracentesis, yielding 2.2 liters of fluid
== END 2018-06-08 12:45 | disposition home or self-care (01) ==
LOC: ULS 10:16
DX: R18.8 Other ascites (principal)
CPT/HCPCS: 76942

== ENCOUNTER 2018-07-16 18:49 | Emergency (ER) | payer MEDICARE, OTHER ==
[~2018-07-16] VITALS: Ht 177.8 cm; Wt 72.6 kg
--- NOTE | 2018-07-16 18:50 | NUR ---
ED Nurse Note: PT brought in by [facility] from home c/o abd pain and ascites, pt states he gets paracentesis to drain fluid out of his abdomen and was supposed to go this month but was unable to get procedure done, and reports sharp pain on abd area. Noted round distended belly, soft and tender, pt aA&ox4, gcs=15, skin warm and dry, resp even and unlabored on RA, VSS, will cont monitor.
[2018-07-16] MEDS ORDERED: HYDROcodone/Acetamin 5/325 tab ORAL ONE (19:00)
[2018-07-16] MEDS ORDERED: Lidocaine 1% 10mg/ml/Epi 0.005mg/ml 30ml vial INJ ONE (19:00)
[2018-07-16 19:05] LABS: BASOPHILS % (AUTO) 2.1 % (0.0-2.0); EOSINOPHILS % (AUTO) 7.6 % (0.0-3.0); HEMATOCRIT 33.5 % (42.0-52.0); HEMOGLOBIN 10.8 G/DL (14.2-18.0); LYMPHOCYTES % (AUTO) 25.1 % (20.0-45.0); MEAN CORPUSCULAR VOLUME 88 FL (80-99); MONOCYTES % (AUTO) 8.1 % (1.0-10.0); NEUTROPHILS % (AUTO) 57.2 % (45.0-75.0); PLATELET COUNT 182 K/UL (150-450); RED BLOOD COUNT 3.82 M/UL (4.70-6.10); RED CELL DISTRIBUTION WIDTH 15.6 % (11.6-14.8); WHITE BLOOD COUNT 8.2 K/UL (4.8-10.8)
--- NOTE | 2018-07-16 19:05 | NUR ---
ED Nurse Note: report given to TAY Brown and endorsed care.
[2018-07-16 19:15] VITALS: BP 141/87
[2018-07-16 19:15] LABS: ANION GAP 5 mmol/L (5-15); BLOOD UREA NITROGEN 7 mg/dL (7-18); CALCIUM 8.5 MG/DL (8.5-10.1); CARBON DIOXIDE 28 MMOL/L (21-32); CHLORIDE 104 MMOL/L (98-107); CREATININE 0.8 MG/DL (0.55-1.30); POTASSIUM 4.1 MMOL/L (3.5-5.1); SODIUM 137 MMOL/L (136-145)
--- NOTE | 2018-07-16 19:15 | NUR ---
ED Nurse Note: RECIEVED REPORT TO RESUME CARE, PT IN BED AWAKE AND ALERT, MD AT BEDSIDE PERFORMING BEDSIDE ULTRASOUND ON PT FOR ASCITES, PT IS ON CARDIAC MONITORING, HAS PATENT SALINE LOCK IN RIGHT WRIST, PT JUST RECENTLYMEDICATED FOR PAIN, WILL RESUME CARE PRIMARY NURSE WITH CLOSE AND FREQUENT MONITORING WHILE WAITING FOR DISPOSITION.
[2018-07-16 19:20] LABS: ALANINE AMINOTRANSFERASE 24 U/L (12-78); ALBUMIN 2.4 G/DL (3.4-5.0); ALBUMIN/GLOBULIN RATIO 0.5 (1.0-2.7); ALKALINE PHOSPHATASE 120 U/L (46-116); ASPARTATE AMINO TRANSFERASE 39 U/L (15-37); BILIRUBIN,TOTAL 0.7 MG/DL (0.2-1.0)
[2018-07-16] MEDS ORDERED: FUROSEMIDE40 MG ORAL (19:21)
[2018-07-16] MEDS ORDERED: FINASTERIDE5 MG ORAL (19:21)
[2018-07-16] MEDS ORDERED: ASPIRIN-LOW81 MG ORAL (19:21)
[2018-07-16] MEDS ORDERED: NORCO 10-325 T1 EACH ORAL (19:21)
[2018-07-16] MEDS ORDERED: ALDACTONE50 MG ORAL (19:21)
[2018-07-16] MEDS ORDERED: NORVASC5 MG ORAL (19:21)
[2018-07-16] MEDS ORDERED: VENTOLIN HFA18 GM INH (19:21)
[2018-07-16] MEDS ORDERED: FLOMAX0.4 MG ORAL (19:21)
[2018-07-16] MEDS ORDERED: CARISOPRODOL250 MG ORAL (19:21)
--- NOTE | 2018-07-16 19:22 | Emergency Room Report ---
History of Present Illness General Chief Complaint: General Complaint Present Illness HPI Patient is 57-year-old male who presented after increased abdominal distention. Patient a prior history of end-stage liver disease and cirrhosis. Patient had reported having increased discomfort. He states he had multiple paracentesis in the past. He reports taking diuretics. He states he is taking spironolactone as well as Lasix. Patient is followed by Dr. Cardoza. Allergies: Coded Allergies: No Known Allergies (Unverified , 11/16/14) Patient History Past Medical History: see triage record Reviewed Nursing Documentation: PMH: Agreed; PSxH: Agreed Nursing Documentation-PM Past Medical History: No History, Except For Hx Hypertension: Yes Hx Diabetes: Yes Hx Cancer: No Hx Gastrointestinal Problems: Yes - ascitis Hx Neurological Problems: Yes - spinal stenosis,anemia,liver cirrhosis Hx Cerebrovascular Accident: Yes - 2015; L weak Hx Weakness: Yes Review of Systems All Other Systems: negative except mentioned in HPI Physical Exam Vital Signs Date Time Temp Pulse Resp B/P (MAP) Pulse Ox O2 Delivery O2 Flow Rate FiO2 07/16/18 18:40 98.4 85 18 98 Room Air 07/16/18 19:15 141/87 Sp02 EP Interpretation: reviewed, normal General Appearance: normal inspection, well appearing, no apparent distress, alert, GCS 15 Head: atraumatic ENT: normal ENT inspection, hearing grossly normal, normal voice Neck: normal inspection, full range of motion, supple, no bony tend Respiratory: normal inspection, lungs clear, normal breath sounds, no respiratory distress, no retraction, no wheezing Cardiovascular #1: regular rate, rhythm, no edema Gastrointestinal: normal bowel sounds, soft, no guarding, no hernia, distended Genitourinary: no CVA tenderness Musculoskeletal: normal inspection, back normal, normal range of motion Neurologic: normal inspection, alert, oriented x3, responsive, bed worker III-XII nml as tested, motor strength/tone normal, speech normal Psychiatric: normal inspection, judgement/insight normal, mood/affect normal Skin: normal inspection, normal color, no rash Medical Decision Making Diagnostic Impression: Primary Impression: Cirrhosis Additional Impression: Ascites ER Course Patient presented for increased abdominal distention. Differential diagnosis include was not limited to tense ascites, bacterial peritonitis, bowel obstruction among others. Because of complexity of patient's case laboratory testing and imaging studies were ordered. Patient was noted to have some abdominal distention. Patient does not appear to be tense. Patient was given IV Lasix with improvement in his abdominal distention. Bedside ultrasound showed moderate ascites Patient was noted to have improvement in symptoms after medications. Patient was discharged home. He is advised to follow-up with his primary care physician for recheck. Labs Test 07/16/18 18:50 White Blood Count 8.2 K/UL (4.8-10.8) Red Blood Count 3.82 M/UL (4.70-6.10) Hemoglobin 10.8 G/DL (14.2-18.0) Hematocrit 33.5 % (42.0-52.0) Mean Corpuscular Volume 88 FL (80-99) Mean Corpuscular Hemoglobin 28.3 PG (27.0-31.0) Mean Corpuscular Hemoglobin Concent 32.3 G/DL (32.0-36.0) Red Cell Distribution Width 15.6 % (11.6-14.8) Platelet Count 182 K/UL (150-450) Mean Platelet Volume 4.3 FL (6.5-10.1) Neutrophils (%) (Auto) 57.2 % (45.0-75.0) Lymphocytes (%) (Auto) 25.1 % (20.0-45.0) Monocytes (%) (Auto) 8.1 % (1.0-10.0) Eosinophils (%) (Auto) 7.6 % (0.0-3.0) Basophils (%) (Auto) 2.1 % (0.0-2.0) Sodium Level 137 MMOL/L (136-145) Potassium Level 4.1 MMOL/L (3.5-5.1) Chloride Level 104 MMOL/L (98-107) Carbon Dioxide Level 28 MMOL/L (21-32) Anion Gap 5 mmol/L (5-15) Blood Urea Nitrogen 7 mg/dL (7-18) Creatinine 0.8 MG/DL (0.55-1.30) Estimat Glomerular Filtration Rate > 60 mL/min (>60) Glucose Level 92 MG/DL (74-106) Calcium Level 8.5 MG/DL (8.5-10.1) Total Bilirubin 0.7 MG/DL (0.2-1.0) Aspartate Amino Transf (AST/SGOT) 39 U/L (15-37) Alanine Aminotransferase (ALT/SGPT) 24 U/L (12-78) Alkaline Phosphatase 120 U/L (46-116) Total Protein 7.7 G/DL (6.4-8.2) Albumin 2.4 G/DL (3.4-5.0) Globulin 5.3 g/dL Albumin/Globulin Ratio 0.5 (1.0-2.7) Last Vital Signs Date Time Temp Pulse Resp B/P (MAP) Pulse Ox O2 Delivery O2 Flow Rate FiO2 07/16/18 19:15 85 18 Room Air 07/16/18 19:15 98.4 141/87 98 Status: improved Disposition: HOME, SELF-CARE Condition: Stable Oleg Ramos MD July 16, 2018 19:22
[2018-07-16 19:32] LABS: INR 1.3 (0.9-1.1)
[2018-07-16 20:30] VITALS: BP 133/81
[2018-07-16 21:20] VITALS: BP 138/69
[2018-07-16 21:30] VITALS: BP 133/81
--- NOTE | 2018-07-16 21:30 | NUR ---
ER DISCHARGE NOTE: Patient is cleared to be discharged per ERMD, pt is aox4, on room air, with stable vital signs. pt was given dc and prescription instructions, pt was able to verbalize understanding, pt id band and iv site removed without complications. pt is able to ambulate . pt took all belongings. family member present to drive pt, nad noted during d/c to home.
== END 2018-07-16 21:30 | disposition home or self-care (01) ==
LOC: EDBD 18:49 → EMR 19:30
DX: K74.60 Unspecified cirrhosis of liver (principal); R18.8 Other ascites; I12.0 Hypertensive chronic kidney disease with stage 5 chronic kidney disease or end stage renal disease; E11.22 Type 2 diabetes mellitus with diabetic chronic kidney disease; N18.6 End stage renal disease; G81.94 Hemiplegia, unspecified affecting left nondominant side; Z79.899 Other long term (current) drug therapy
CPT/HCPCS: 36415; 80053; 85025; 85610; 85730; 96374; 99284; J1940

== ENCOUNTER → 2018-07-22 | Outpatient (CLI) | payer MEDICARE, OTHER ==
[~2018-07-22] MED LIST changes: +ALDACTONE50 MG ORAL; +ASPIRIN-LOW81 MG ORAL; +CARISOPRODOL250 MG ORAL; +FINASTERIDE5 MG ORAL; +FLOMAX0.4 MG ORAL; +FUROSEMIDE40 MG ORAL; +VENTOLIN HFA18 GM INH
--- NOTE | 2018-07-22 11:38 | Diagnostic Imaging Report ---
Indication: Patient presents for therapeutic paracentesis Technique: Grayscale and duplex Doppler imaging four quadrant ultrasound performed. Comparison: None Findings: Trace ascites in the lower quadrants. There is a trace ascites present by the liver. The amount of fluid is not nearly enough to warrant therapeutic paracentesis. IMPRESSION: Paracentesis canceled.
== END | disposition home or self-care (01) ==
LOC: ULS 10:00
DX: R18.8 Other ascites (principal)
CPT/HCPCS: 76705

== ENCOUNTER → 2018-07-22 | Day surgery (SDC) | payer MEDICARE, OTHER | END | disposition home or self-care (01) | LOC: ULS 10:26 | DX: Z53.9 Procedure and treatment not carried out, unspecified reason (principal) ==

== ENCOUNTER 2018-10-12 22:11 | Inpatient (IN) | payer MEDICARE, OTHER ==
[~2018-10-12] VITALS: Ht 172.7 cm; Wt 72.1 kg
[2018-10-13 12:00] VITALS: BP 145/80
[2018-10-13] MEDS ORDERED: HYDROcodone/Acetamin 5/325 tab ORAL PRN (14:30)
--- NOTE | 2018-10-13 14:38 | NUR ---
NURSE NOTES: Received pt from home (direct adm). pt awake, A/o x 4, calm and cooperative. VS stable. pt complained of right shoulder pain. no Cough, no SOB noted. Abd distended. skin intact. left elbow swelling, no drainage, no redness, warm to touch. pt complained of numbness on right arm/leg. possible paracentesis 10/14/2018. waiting for MRI right shoulder to be done. belongings /walker with patient. Ventolin 90mcq inhaler with pt , pt refused to save it with pharmacy. fall precaution maintained. bed in low position, bed alarm on. call light within reach. will continue to monitor.
--- NOTE | 2018-10-13 15:03 | NUR ---
MRI RIGHT SHOULDER COMPLETED.
[2018-10-13] MEDS: HYDROcodone/Acetamin 10/325 tab ORAL PRN ×2 (15:53→22:35)
[2018-10-13 16:00] VITALS: BP 147/82
[2018-10-13 16:44] LABS: BASOPHILS % (AUTO) 2.3 % (0.0-2.0); EOSINOPHILS % (AUTO) 0.6 % (0.0-3.0); HEMATOCRIT 29.7 % (42.0-52.0); HEMOGLOBIN 9.8 G/DL (14.2-18.0); LYMPHOCYTES % (AUTO) 24.7 % (20.0-45.0); MEAN CORPUSCULAR VOLUME 88 FL (80-99); MONOCYTES % (AUTO) 7.5 % (1.0-10.0); NEUTROPHILS % (AUTO) 64.9 % (45.0-75.0); PLATELET COUNT 176 K/UL (150-450); RED BLOOD COUNT 3.37 M/UL (4.70-6.10); WHITE BLOOD COUNT 9.9 K/UL (4.8-10.8)
--- NOTE | 2018-10-13 17:00 | Diagnostic Imaging Report ---
Indication: Shoulder pain Technique: MRI of the right shoulder obtained in a 1.5 Mary magnet. Pulse sequences obtained include axial and coronal proton fast spin-echo with fat saturation, sagittal T1 fast spin-echo, sagittal and coronal T2 fast spin-echo with fat saturation. Findings: There is a 7 x 5 mm focus of bright T2 hyperintense signal at the insertion of the supraspinatus tendon consistent with full-thickness tear. (Image 4/10 or image 13/8). There is no retraction of the tendon. The rotator cuff muscles appear normal in thickness volume and signal. There is a small amount of fluid in the subacromial bursa. Mild degenerative changes noted in the greater tuberosity. There is no malalignment. There is some fairly marked hypertrophy of the acromioclavicular joint. The long head of the biceps tendon is unremarkable in good position. Biceps anchor are unremarkable. IMPRESSION: 7 x 5 mm full-thickness tear at the supraspinatus footprint. Trace subacromial fluid. Moderate hypertrophic arthrosis acromioclavicular joint.
[2018-10-13 17:09] LABS: ALANINE AMINOTRANSFERASE 17 U/L (12-78); ALBUMIN 2.7 G/DL (3.4-5.0); ALBUMIN/GLOBULIN RATIO 0.5 (1.0-2.7); ALKALINE PHOSPHATASE 130 U/L (46-116); ANION GAP 8 mmol/L (5-15); ASPARTATE AMINO TRANSFERASE 36 U/L (15-37); BILIRUBIN,TOTAL 0.8 MG/DL (0.2-1.0); BLOOD UREA NITROGEN 9 mg/dL (7-18); CALCIUM 8.7 MG/DL (8.5-10.1); CARBON DIOXIDE 26 MMOL/L (21-32); CHLORIDE 104 MMOL/L (98-107); CREATININE 0.9 MG/DL (0.55-1.30); POTASSIUM 3.5 MMOL/L (3.5-5.1); SODIUM 137 MMOL/L (136-145)
[2018-10-13 17:10] LABS: INR 1.3 (0.9-1.1)
[2018-10-13] MEDS: Albuterol 90mcg Inhaler 8gm INH SCH (17:41)
--- NOTE | 2018-10-13 19:41 | NUR ---
NURSE NOTES: Received report from TAY French. Patient A&Ox4. On room air, no signs of distress or labored breathing. IV intact, patent, and saline locked. Walker and wheelchair at bedside. Bed in lowest position with call light in reach. Will continue with plan of care.
[2018-10-13 20:00] VITALS: BP 148/81
[2018-10-14] VITALS: BP 122/71
--- NOTE | 2018-10-14 01:00 | History and Physical Report ---
DATE OF ADMISSION: 10/13/2018 REASON FOR ADMISSION: Worsening ascites. HISTORY OF PRESENT ILLNESS: A 58-year-old male was admitted with known history of liver disease. The patient is noted to have worsening ascites overall and admitted for further evaluation and optimization. The patient also notes significant shoulder pain difficult to manage. The patient is afraid to have outpatient paracentesis and is now being admitted due to worsening pain in severity. The patient has been trying to manage at home by himself. The patient has had home health management and has been able to avoid hospitalization. After some time, the patient did note worsening abdominal girth as well as worsening lower extremity edema. PAST MEDICAL HISTORY: Notable for BPH, history of internal hemorrhoids, anemia, history of cirrhosis, history of ascites with recurrent paracentesis, history of spinal stenosis in the cervical region, and chronic pain syndrome. MEDICATIONS: Reviewed. ALLERGIES: Reviewed. SOCIAL HISTORY: Disabled. Currently nonsmoker and nondrinker. REVIEW OF SYSTEMS: All 10-points reviewed and otherwise as above. The patient uses a walker for walking. He is fairly debilitated, but able to manage. The patient is alert at present without significant distress. PHYSICAL EXAMINATION: GENERAL: A well-developed male, chronically ill appearing. HEENT: Fairly negative. Mucous membranes are moist. NECK: Supple. No jugular venous distension. LUNGS: With decreased breath sounds bilaterally. Moderate air entry. No rhonchi or wheezes. CARDIAC: S1, S2. Slightly distant. No murmurs, rubs, or gallops. ABDOMEN: Soft and nontender, but distended. Fluid shift noted. EXTREMITIES: Without edema. LABORATORY DATA: Reviewed in detail. IMPRESSION: 1. Worsening ascites, recurrent overall due to his history of liver disease. 2. Shoulder pain, increasing in severity. 3. Spinal stenosis. 4. BPH. 5. History of COPD. 6. No current history of DVT. 7. Worsening debility. 8. No evidence of hepatic encephalopathy. RECOMMENDATIONS: Supportive care. At present, we will proceed with paracentesis. Also, we will obtain an MRI of the shoulder due to worsening pain and need for intervention. Continue with home medications as outlined, diuresis as needed, and followup clinically recommended. Obtain duplex of the lower extremity to rule out DVT and follow further cultures and results and discharge once stable. Warren Cardoza M.D. DR: ADRIÁN JOB#: [id number] CC:
[2018-10-14 04:00] VITALS: BP 143/81
[2018-10-14] MEDS: Albuterol 90mcg Inhaler 8gm INH SCH ×4 (07:11→18:00)
--- NOTE | 2018-10-14 07:20 | NUR ---
HAND-OFF: Report given to TAY Nye.
--- NOTE | 2018-10-14 07:59 | NUR ---
NURSE NOTES: Patient is awake and alert and oriented,respirations unlabored.patient is NPO for schedule procedure today.Will follow up.Call light within reach.
[2018-10-14 08:00] VITALS: BP 148/59
--- NOTE | 2018-10-14 08:37 | General Progress Note ---
Assessment/Plan Assessment/Plan: IMPRESSION: 1. Worsening ascites, recurrent overall due to his history of liver disease. 2. Shoulder pain, increasing in severity. + tear 3. Spinal stenosis. 4. BPH. 5. History of COPD. 6. No current history of DVT. 7. Worsening debility. 8. No evidence of hepatic encephalopathy. PLAN tap - inadequate fluid MRI reviwed monitor fluid status monitor for asterixis discussed results with patient ortho evaluation if able plan to dc home impression, plan, and exam edited and reviewed in detail care discussed with RN Subjective Allergies: Coded Allergies: No Known Allergies (Unverified , 11/16/14) Subjective care noted pending tap and MRI Objective Last 24 Hour Vital Signs Date Time Temp Pulse Resp B/P (MAP) Pulse Ox O2 Delivery O2 Flow Rate FiO2 10/14/18 07:13 73 18 99 Room Air 21 10/14/18 07:12 72 18 99 Room Air 21 10/14/18 04:00 98.0 72 18 143/81 (101) 99 10/14/18 00:00 78 18 96 Room Air 21 10/14/18 00:00 99.3 83 18 122/71 (88) 99 10/14/18 00:00 78 18 96 Room Air 21 10/14/18 00:00 Room Air 10/13/18 21:00 Room Air 10/13/18 20:00 98.8 71 18 148/81 (103) 99 10/13/18 16:23 99.7 10/13/18 16:00 99.7 88 18 147/82 (103) 99 10/13/18 12:30 Room Air 10/13/18 12:30 Room Air 10/13/18 12:00 99.8 82 18 145/80 (101) 99 10/13/18 11:53 Room Air Intake and Output 10/13/18 10/14/18 19:00 07:00 Intake Total 360 ml Output Total 1 ml Balance 360 ml -1 ml Intake Oral 360 ml Output Stool Total 1 ml # Voids 4 2 Laboratory Tests 10/13/18 16:30: White Blood Count 9.9, Red Blood Count 3.37L, Hemoglobin 9.8L, Hematocrit 29.7L , Mean Corpuscular Volume 88, Mean Corpuscular Hemoglobin 29.2, Mean Corpuscular Hemoglobin Concent 33.1, Red Cell Distribution Width 14.0, Platelet Count 176, Mean Platelet Volume 4.0L, Neutrophils (%) (Auto) 64.9, Lymphocytes ( %) (Auto) 24.7, Monocytes (%) (Auto) 7.5, Eosinophils (%) (Auto) 0.6, Basophils (%) (Auto) 2.3H, Prothrombin Time 13.2H, Prothromb Time International Ratio 1.3H , Activated Partial Thromboplast Time 32, Sodium Level 137, Potassium Level 3.5 , Chloride Level 104, Carbon Dioxide Level 26, Anion Gap 8, Blood Urea Nitrogen 9, Creatinine 0.9, Estimat Glomerular Filtration Rate > 60, Glucose Level 103, Calcium Level 8.7, Total Bilirubin 0.8, Aspartate Amino Transf (AST/SGOT) 36, Alanine Aminotransferase (ALT/SGPT) 17, Alkaline Phosphatase 130H, Total Protein 7.8, Albumin 2.7L, Globulin 5.1, Albumin/Globulin Ratio 0.5L Height (Feet): 5 Height (Inches): 8.00 Weight (Pounds): 159 Objective GENERAL: A well-developed male, chronically ill appearing. HEENT: Fairly negative. Mucous membranes are moist. NECK: Supple. No jugular venous distension. LUNGS: With decreased breath sounds bilaterally. Moderate air entry. No rhonchi or wheezes. CARDIAC: S1, S2. Slightly distant. No murmurs, rubs, or gallops. ABDOMEN: Soft and nontender, but distended. Fluid shift noted. EXTREMITIES: Without edema. Warren Cardoza MD Oct 14, 2018 08:37
--- NOTE | 2018-10-14 08:52 | Diagnostic Imaging Report ---
Indication: Abdominal distention, suspected ascites Technique: Limited imaging of all 4 quadrants of the abdomen in anticipation of paracentesis Comparison: 07/22/2018 Findings: Only trace ascites is seen over the right hepatic lobe. No other fluid bodies are demonstrated Impression: Only trace ascites, insufficient for paracentesis
[2018-10-14] MEDS ORDERED: Tamsulosin 0.4mg cap ORAL SCH (09:00)
[2018-10-14] MEDS ORDERED: Spironolactone 50mg tab ORAL SCH (09:00)
[2018-10-14] MEDS ORDERED: Furosemide 40mg tab ORAL SCH (09:00)
[2018-10-14] MEDS ORDERED: Aspirin EC 81mg tab ORAL SCH ×2 (09:00)
[2018-10-14 12:00] VITALS: BP 134/80
[2018-10-14] MEDS ORDERED: Isovue-300 100ml vial INJ PRN (12:00)
[2018-10-14] MEDS: HYDROcodone/Acetamin 10/325 tab ORAL PRN (13:10)
--- NOTE | 2018-10-14 13:44 | NUR ---
NURSE NOTES: Dr. Alvarenga contacted for medication order for Arthrogram of right shoulder. New order received.
[2018-10-14] MEDS ORDERED: Kenalog-40 1ml Vial IARTIC ONE (14:00)
--- NOTE | 2018-10-14 15:32 | Pre-Procedure Note/Attestation ---
Pre-Procedure Note/Attestation Complete Prior to Procedure Planned Procedure: right Procedure Narrative: Right shoulder steroid injection Indications for Procedure Pre-Operative Diagnosis: R shoulder pain Attestation I attest that I discussed the nature of the procedure; its benefits; risks and complications; and alternatives (and the risks and benefits of such alternatives ), prior to the procedure, with the patient (or the patient's legal corporate representative). I attest that, if there was a reasonable possibility of needing a blood transfusion, the patient (or the patient's legal corporate representative) was given the [facility] standardized written summary, pursuant to the Ernst Ivan Blood Safety Act ([place] Health and Safety Code # 1645, as amended). I attest that I re-evaluated the patient just prior to the surgery and that there has been no change in the patient's H&P, except as documented below: Lee Ferrer MD Oct 14, 2018 15:32
[2018-10-14] MEDS ORDERED: Lidocaine 1% Plain 30 ml INJ ONE (15:45)
--- NOTE | 2018-10-14 16:18 | Brief Operative Note ---
Immediate Post Operative Note Operative Note Pre-op Diagnosis: R shoulder pain Procedure: R shoulder therapeutic injection Post-op Diagnosis: same as pre-op Surgeon: Lenore Jimenez Anesthesia: local Specimen: none Complications: none Fluids: none Implant(s) used?: No Lee Jimenez MD Oct 14, 2018 16:17
--- NOTE | 2018-10-14 16:27 | NUR ---
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 97.9 HR 82 RR 18 B/P 145/80 IS: SOMA PO NEURONTIN PO NORCO PARACENTESIS ADMITTED TO MED/SURG MED/SURG STATUS DCP RETURN HOME
--- NOTE | 2018-10-14 16:57 | Diagnostic Imaging Report ---
INDICATION: Shoulder pain TECHNIQUE: Informed consent obtained prior to commencement of the procedure. Procedure timeout performed. Sterile prepping and draping. Local anesthesia with 1% lidocaine. Under direct fluoroscopic visualization, a 22-gauge needle was advanced to the superomedial humeral head, utilizing the rotator interval approach. A small amount of 1% lidocaine was injected; easy injection of lidocaine indicated likely intra-articular positioning of the needle tip. A small amount of contrast was injected under direct fluoroscopic supervision. Filling of contrast into the joint space indicated intra-articular position of the needle tip. A mixture of 1 mL (40 mg) of Kenalog and 5 mL of 1% lidocaine injected into the joint. The needle was removed and a bandage was applied. The patient tolerated the procedure well, without immediate complication. Fluoroscopy time: 25.7 seconds Total dose: 0.92057 mGym2 Total number of images: 3 COMPARISON: None FINDINGS: Intraprocedural images document contrast opacification of the joint space. IMPRESSION: Therapeutic right shoulder injection under fluoroscopy, as described
--- NOTE | 2018-10-14 18:00 | NUR ---
NURSE NOTES: Patient received injection to the right shoulder in Radiology as ordered. band-aid noted to right shoulder.Patient will be discharge as ordered.
--- NOTE | 2018-10-14 19:30 | NUR ---
NURSE NOTES: Patient discharge by charge Nurse Juana CROSS,patient iv was removed,patient has his personal belongings. Charge Nurse accompany patient . down to private vehicle.
--- NOTE | 2018-10-14 19:44 | NUR ---
NURSE NOTES: Patient discharged Home. Patient's sister to pick patient up. Belongings reviewed and accounted for. IV removed. Discharge instructions given to patient. Patient stable upon discharge.
--- NOTE | 2018-10-14 21:00 | Consultation ---
DATE OF CONSULTATION: 10/14/2018 CONSULTING PHYSICIAN: Americo Alvarenga M.D. HISTORY OF PRESENT ILLNESS: The patient is a pleasant 58-year-old gentleman, who presents with complaints of right shoulder pain. He was admitted into the hospital for acute ascites for he is being treated. He has had a history of chronic shoulder pain for the last year. It occurred by his report when he kind of lost his balance and subsequently fell and landed on his right shoulder. Since then, he has continued issues, but recently it has gotten little bit more progressive. It is waking up at night, particularly during sleep. He has difficulty with overhead activities. PAST MEDICAL HISTORY: Reviewed per intake chart. SURGICAL HISTORY: Reviewed per intake chart. MEDICATIONS: Reviewed per intake chart. PHYSICAL EXAMINATION: GENERAL: The patient is alert and oriented. He is pretty cachectic gentleman. VITAL SIGNS: Afebrile. Stable vital signs. EXTREMITIES: Right shoulder examination shows pain with testing. Positive Neer and Tanner' sign. Moderate crepitus. IMAGING: MRI of the right shoulder including appears to be with rotator cuff less than 1 centimeter with no significant fat atrophy. No glenohumeral joint arthrosis. No labral tear. ASSESSMENT: Right shoulder rotator cuff tear. DISCUSSION: At this point, I discussed with him that given his current situation, I recommend a cortisone injection, physical therapy. He is to be better, medically optimized before proceeding with the right shoulder arthroscopy, which will be scheduled as outpatient. He understands that currently he is at increased risk because of his ascites, which I am not sure exactly why he is having. Also he does have unsteady gait and thus require use of a walker, which would potentially compromise the surgical outcomes of rotator cuff repair. He has to be improved in his gait. Should be able to walk maybe with a cane rather than a walker, so he does not put substantial weight of the right shoulder. At this point, I have gone over my findings with the patient. I have ordered an intraarticular cortisone injection by Radiology. I discussed the case with his primary care physician and I will follow up as outpatient. Americo Alvarenga M.D. DR: ALONSO JOB#: [id number] CC:
--- NOTE | 2018-10-18 08:54 | Discharge Summary ---
Discharge Summary Discharge Summary _ DATE OF ADMISSION: 10/13/2018 DATE OF DISCHARGE: DISCHARGED BY: Dr. Cardoza REASON FOR ADMISSION: 58 years old male with past medical history of anemia, cirrhosis, ascites, recurrent paracentesis, internal hemorrhoids, BPH, history of cervical spinal stenosis, chronic pain syndrome, noted worsening ascites and admitted for further evaluation and optimization. Patient also reported significant right shoulder pain, which was difficult to manage. Patient was uncomfortable to do paracentesis as outpatient. Patient prior head home health services and was able to avoid hospitalization. At this time he noted worsening abdominal girth and worsening lower extremity edema. Upon evaluation hemoglobin 9.8, hematocrit 29.7. Stable LFT and renal parameters. Albumin 2.7. INR 1.3. Patient admitted for paracentesis and management of right shoulder pain. CONSULTANTS: Orthopedic surgery Dr. Alvarenga HOSPITAL COURSE: Patient admitted to medical surgical floor. Ultrasound-guided paracentesis was ordered. Pain management was addressed. Orthopedic surgery consult was requested. Venous duplex bilateral lower extremity revealed no evidence of acute DVT. Right shoulder MRI revealed 7 x 5 mm full-thickness tear at the supraspinatus footprint. Trace subacromial fluid. Moderate hypertrophic arthrosis acromioclavicular joint. Orthopedic surgery consult was requested. Findings of MRI were discussed with the patient. Surgeon recommended cortisone injection injection and physical therapy. Patient will need to be better medically optimized prior to procedure of right shoulder arthroscopy , which will be scheduled as an outpatient. Patient subsequently undergone right shoulder therapeutic injection under fluoroscopy. Abdominal ultrasound revealed only trace ascites , insufficient for paracentesis. Maintenance dose of diuretics/ Lasix and Aldactone continued with close monitoring of volumes. Renal parameters and LFT stable. GI prophylaxis provided. Supplemental oxygen and handheld nebulizing therapy with bronchodilator were on board as needed. Pulse oximetry was stable on room air. No signs of respiratory distress. No evidence of hepatic encephalopathy . Blood pressure was managed with calcium channel heather and remained stable. Proscar and Flomax continued. Due to rapid and unexpected improvement in patient condition patient was discharged in 1 day FINAL DIAGNOSES: Right shoulder rotator cuff tear Status post right shoulder injection under fluoroscopy Worsening ascites ( not sufficient amount for paracentesis) Liver disease BPH History of COPD Spinal stenosis DISCHARGE MEDICATIONS: See Medication Reconciliation list. DISCHARGE INSTRUCTIONS: Patient was discharged home Follow up with primary care provider in one week. I have been assigned to dictate discharge summary for this account. I was not involved in the patient's management. Lesly Albarran NP Oct 18, 2018 08:54
--- NOTE | 2018-10-20 13:47 | Diagnostic Imaging Report ---
APPROVED REPORT CPT Code: 88260 Present Symptoms Comments: BILATERAL LEGS PAIN. BILATERAL: Imaging reveals a patent deep venous system bilaterally. There is no evidence of thrombus within the femoral, popliteal or tibial segments. The greater saphenous veins are also within normal limits. Doppler indicates normal spontaneous flow within these segments.
== END 2018-10-14 19:30 | disposition home or self-care (01) | DRG 558 ==
LOC: 4E 10-13 11:15 → SDSOVERFLO 10-13 12:35 → 4E 10-13 12:36
DX: M75.101 Unspecified rotator cuff tear or rupture of right shoulder, not specified as traumatic (principal); R18.8 Other ascites; K74.60 Unspecified cirrhosis of liver; K64.8 Other hemorrhoids; N40.0 Benign prostatic hyperplasia without lower urinary tract symptoms; G89.29 Other chronic pain; M48.02 Spinal stenosis, cervical region; Z91.81 History of falling; J44.9 Chronic obstructive pulmonary disease, unspecified
CPT/HCPCS: 36415; 76705; 80053; 85025; 85610; 85730; 93971; 94640; 94664

== ENCOUNTER 2018-10-18 13:54 | Emergency (ER) | payer MEDICARE, OTHER ==
[~2018-10-18] VITALS: Ht 182.9 cm; Wt 74.8 kg
[2018-10-18 13:54] VITALS: BP 128/70
--- NOTE | 2018-10-18 14:00 | NUR ---
ED Nurse Note: Patient brought in by [facility] ambulance c/o right shoulder pain. patient denies any injury. patient is alert awake x4 ambulatory
--- NOTE | 2018-10-18 14:18 | Emergency Room Report ---
History of Present Illness General Chief Complaint: General Complaint Source: Medical Record Present Illness HPI 49-year-old male with history of liver cirrhosis, ascites, CVA who was recently hospitalized at [facility] 2 weeks ago for ascites here complaining of 2 weeks of right shoulder pain patient reports that he had a recent MRI done and was diagnosed with right rotator cuff tear however he is moving his arm around freely without any distress. Rating pain 10 out of 10. Has an active prescription for hydrocodone according to extensive cures history. Patient denies any tingling and numbness. Patient has drug-seeking behavior. Denies chest pain, shortness of breath, palpitation, no other associated symptoms. Allergies: Coded Allergies: No Known Allergies (Unverified , 11/16/14) Patient History Past Medical History: see triage record Past Surgical History: unable to obtain Pertinent Family History: none Immunizations: UTD Reviewed Nursing Documentation: PMH: Agreed; PSxH: Agreed Nursing Documentation-PMH Hx Hypertension: Yes Hx Diabetes: Yes Hx Cancer: No Hx Gastrointestinal Problems: Yes - ascitis Hx Neurological Problems: Yes - spinal stenosis,anemia,liver cirrhosis Hx Cerebrovascular Accident: Yes - 2014; L weak Hx Weakness: Yes Review of Systems All Other Systems: negative except mentioned in HPI Physical Exam Vital Signs Date Time Temp Pulse Resp B/P (MAP) Pulse Ox O2 Delivery O2 Flow Rate FiO2 10/18/18 13:54 98.4 86 16 128/70 98 Room Air Sp02 EP Interpretation: reviewed, normal Head: normocephalic Eyes: bilateral eye normal inspection, bilateral eye PERRL ENT: normal ENT inspection Neck: full range of motion, supple Respiratory: normal inspection, chest non-tender, no rhonchi, no wheezing Cardiovascular #1: normal inspection, regular rate, rhythm, no gallop, no murmur Cardiovascular #2: 2+ radial (R), 2+ radial (L) Gastrointestinal: normal inspection, normal bowel sounds, soft Genitourinary: no CVA tenderness Musculoskeletal: back normal, gait/station normal, non-tender Neurologic: normal inspection, alert, oriented x3 Psychiatric: normal inspection, judgement/insight normal Skin: no rash Lymphatic: normal inspection, no adenopathy Medical Decision Making PA Attestation All my diagnosis and treatment plans were reviewed ad discussed with my supervising physician Dr. Ramos Diagnostic Impression: Primary Impression: Chronic right shoulder pain ER Course 49-year-old male with history of liver cirrhosis, ascites, CVA who was recently hospitalized at [facility] 2 weeks ago for ascites here complaining of 2 weeks of right shoulder pain patient reports that he had a recent MRI done and was diagnosed with right rotator cuff tear however he is moving his arm around freely without any distress. Rating pain 10 out of 10. Has an active prescription for hydrocodone according to extensive cures history. Patient denies any tingling and numbness. Patient has drug-seeking behavior. Denies chest pain, shortness of breath, palpitation, no other associated symptoms. Ddx considered but are not limited to : Shoulder sprain, fracture, chronic shoulder pain Vital signs: are WNL, pt. is afebrile H&PE are most consistent with: Chronic shoulder pain ORDERS: Dexamethasone ED INTERVENTIONS: Dexamethasone DISCHARGE: At this time pt. is stable for d/c to home. Will provide printed patient care instructions, and any necessary prescriptions. Care plan and follow up instructions have been discussed with the patient prior to discharge. Follow-up with your pain management primary doctor is chronic pain no further imaging is needed no more narcotics can be given as you have an active prescription Last Vital Signs Date Time Temp Pulse Resp B/P (MAP) Pulse Ox O2 Delivery O2 Flow Rate FiO2 10/18/18 14:04 86 16 Room Air 10/18/18 13:54 98.4 128/70 (89) 98 Disposition: HOME, SELF-CARE Condition: Stable Patient Instructions: Shoulder Pain, [id number] Additional Instructions: Follow-up with your primary care provider due to your chronic pain at this time no more narcotics can be given as you have an extensive history of taking them and currently have an active prescription Alden Hernandez Oct 18, 2018 14:18
[2018-10-18] MEDS ORDERED: Dexamethasone 20mg/5ml IM ONE (14:30)
--- NOTE | 2018-10-18 14:36 | NUR ---
ED Nurse Note: received taxi voucher from nursing fitness supervisor, patient unable to go home by bus because he does not have his walker, his sister is at work.
[2018-10-18 14:45] VITALS: BP 128/70
--- NOTE | 2018-10-18 14:45 | NUR ---
ER DISCHARGE NOTE: Patient is cleared to be discharged per KEVIN SAN, pt is aox4, on room air, with stable vital signs. pt was given dc instructions, pt was able to verbalize understanding, pt id band removed without complications. pt is able to ambulate with steady gait. pt took all belongings.
== END 2018-10-18 14:45 | disposition home or self-care (01) ==
LOC: EDBD 13:54 → EMR 14:31
DX: G89.29 Other chronic pain (principal); M25.511 Pain in right shoulder; E11.9 Type 2 diabetes mellitus without complications; I10 Essential (primary) hypertension; K74.60 Unspecified cirrhosis of liver; M48.00 Spinal stenosis, site unspecified; I69.854 Hemiplegia and hemiparesis following other cerebrovascular disease affecting left non-dominant side; R18.8 Other ascites
CPT/HCPCS: 96372; 99283; J1100

== ENCOUNTER 2018-12-20 13:43 | Emergency (ER) | payer MEDICARE, OTHER ==
[~2018-12-20] VITALS: Ht 172.7 cm; Wt 68.9 kg
--- NOTE | 2018-12-20 14:04 | NUR ---
ED Nurse Note: pt presents to ED c/o right sided shoulder, and lumbar pain without injury. pt states that his chronic pain comes and goes between a 7/10 and a 10/10 due to the 3 slipped discs in his back and his arthritis. pt explained to me that the pain usually improves with his prescribed pain medications (percocet, norco) and muscle relaxers but for the last 3 days his meds have not been working. he is a pt of Dr. Hernández who advised for him to come into ED for an evaluation. pt has right sided weakness from a stroke in 2014.
[2018-12-20 14:12] VITALS: BP 130/76
--- NOTE | 2018-12-20 14:24 | NUR ---
ED Nurse Note: RN applied sling to affected shoulder. pt reports that he would like to be able to get into [facility]. It is located at [address] [place], [place] [id number].
[2018-12-20] MEDS ORDERED: Morphine Sulfate 2mg/ml Inj(IV/IM USE ONLY) IM ONE (14:30)
[2018-12-20] MEDS ORDERED: Dexamethasone 4mg/ml vial IM ONE (14:30)
[2018-12-20 14:43] VITALS: BP 130/76
--- NOTE | 2018-12-20 14:43 | NUR ---
ER DISCHARGE NOTE: Patient is cleared to be discharged per ERMD, pt is aox4, on room air, with stable vital signs. pt was given dc instructions and referrals to orthopedic specialists and an orthopedic urgent care. pt was able to verbalize understanding, pt id band removed without complications. pt is able to ambulate with using walker. pt took all belongings.
--- NOTE | 2018-12-20 15:21 | Emergency Room Report ---
History of Present Illness General Chief Complaint: Back Pain-No Injury Source: Patient, Medical Record Present Illness HPI 58 -year-old male presents ED complaining of R shoulder and back pain. And states that he has had this pain for years. States he has slipped disks in his lower back and a torn rotator cuff in his right shoulder. Pain is throbbing, 9 out of 10, nonradiating. Denies any recent fall or injury. Patient states he called a nursing home facility that he used to reside at and told him he was having pain. Patient was told to go to the ED. Patient states that he does have pain medication at home. States that he has history of cirrhosis and was told that he could not get surgery on his shoulder because of the cirrhosis. No other aggravating or relieving factors. Denies any other associated symptoms Allergies: Coded Allergies: No Known Allergies (Unverified , 11/16/14) Patient History Past Medical History: HTN, CVA/TIA, other - cirrhosis/ascites Past Surgical History: none Pertinent Family History: none Social History: Denies: smoking, alcohol use, drug use Immunizations: UTD Reviewed Nursing Documentation: PMH: Agreed; PSxH: Agreed Nursing Documentation-PMH Past Medical History: No History, Except For Hx Hypertension: Yes Hx Diabetes: Yes Hx Cancer: No Hx Gastrointestinal Problems: Yes - ascitis Hx Neurological Problems: Yes - spinal stenosis,anemia,liver cirrhosis Hx Cerebrovascular Accident: Yes - 2014; L weak Hx Weakness: Yes Review of Systems All Other Systems: negative except mentioned in HPI Physical Exam Vital Signs Date Time Temp Pulse Resp B/P (MAP) Pulse Ox O2 Delivery O2 Flow Rate FiO2 12/20/18 13:50 98.2 69 16 130/76 (94) 96 Room Air Sp02 EP Interpretation: reviewed, normal General Appearance: no apparent distress, alert, GCS 15, non-toxic Head: normocephalic, atraumatic Eyes: bilateral eye normal inspection, bilateral eye PERRL ENT: hearing grossly normal, normal pharynx, no angioedema, normal voice Neck: full range of motion, supple/symm/no masses Respiratory: chest non-tender, lungs clear, normal breath sounds, speaking full sentences Cardiovascular #1: regular rate, rhythm, no edema Cardiovascular #2: 2+ carotid (R), 2+ carotid (L), 2+ radial (R), 2+ radial (L) , 2+ dorsalis pedis (R), 2+ dorsalis pedis (L) Gastrointestinal: normal bowel sounds, non tender, soft, non-distended, no guarding, no rebound Rectal: deferred Genitourinary: normal inspection, no CVA tenderness Musculoskeletal: back normal, gait/station normal, normal range of motion, tender - R shoulder Neurologic: alert, oriented x3, responsive, motor strength/tone normal, sensory intact, speech normal Psychiatric: judgement/insight normal, memory normal, mood/affect normal, no suicidal/homicidal ideation Reflexes: 3+ bicep (R), 3+ bicep (L), 3+ tricep (R), 3+ tricep (L), 3+ knee (R) , 3+ knee (L) Lymphatic: no adenopathy Procedures Splinting Splinting : Pre-Made Type: sling Pre-Proc Neuro Vasc Exam: normal Post-Proc Neuro Vasc Exam: normal Patient Tolerated: Well Complications: None Medical Decision Making Diagnostic Impression: Primary Impression: Chronic pain Qualified Codes: G89.29 - Other chronic pain ER Course Hospital Course 58-year-old male presents to ED complaining of R shoulder pain no trauma Differential diagnoses include: Fracture, dislocation, sprain, contusion, bursitis Clinical course Patient placed on stretcher. After initial history, physical exam reveals an middle-aged male in no acute distress. There is full range of motion to the right shoulder. No crepitus or deformity. Sensations intact. Pulses intact. Patient had been seen here previously for similar presentation. Patient was given referrals at that time but patient did not follow-up at that time. I explained to the patient that his condition is chronic and there is no emergent treatment indicated. Patient would benefit from outpatient physical therapy and the discussion of possible surgery for his rotator cuff injury. He does not have a PMD at this time. I will provide him with primary referrals as well as orthopedic referrals. when I reviewed [facility]ES extensive narcotic prescriptions as well as muscle relaxers prescribed on a monthly basis. Patient understands he will not receive additional prescriptions here. provided with pain shot as well as steroid shot here. Shoulder sling applied. Safe for discharge for close outpatient follow-up Diagnosis - chronic pain stable and discharged to home. Followup with PMD/ortho. Return to ED if symptoms recur or worsen Last Vital Signs Date Time Temp Pulse Resp B/P (MAP) Pulse Ox O2 Delivery O2 Flow Rate FiO2 12/20/18 14:43 98.2 16 130/76 96 Room Air 12/20/18 13:50 69 Status: improved Disposition: HOME, SELF-CARE Condition: Stable Referrals: [facility] Open 24 hour /7 days a week by Appointment Only [address] [facility] [address] [facility] [address] Patient Instructions: Rotator Cuff Injury Robel Mcqueen MD Dec 20, 2018 15:21
== END 2018-12-20 14:43 | disposition home or self-care (01) ==
LOC: EMR 14:20
DX: G89.29 Other chronic pain (principal); M25.511 Pain in right shoulder; M54.9 Dorsalgia, unspecified; K74.60 Unspecified cirrhosis of liver; I10 Essential (primary) hypertension; E11.9 Type 2 diabetes mellitus without complications; M48.00 Spinal stenosis, site unspecified; I69.854 Hemiplegia and hemiparesis following other cerebrovascular disease affecting left non-dominant side
CPT/HCPCS: 96372; 99283; J1100; J2270

== ENCOUNTER 2020-02-26 10:58 | Inpatient (IN) | payer MEDICARE, OTHER ==
[~2020-02-26] VITALS: Ht 172.7 cm; Wt 56.2 kg
[2020-02-26] MEDS: Docusate 100mg cap ORAL SCH (01:00)
[2020-02-26] MEDS: Albuterol 90mcg Inhaler 8gm INH SCH ×2 (01:00→12:30)
--- NOTE | 2020-02-26 11:35 | Emergency Room Report ---
History of Present Illness General Chief Complaint: Generalized Weakness Source: Patient Present Illness HPI Disclaimer: Please note that this report is being documented using [employer] technology. This can lead to erroneous entry secondary to incorrect interpretation by the dictating instrument. HPI: 59-year-old male history of hypertension, hyperlipidemia, prior CVA with residual right-sided weakness presents for evaluation of fall. The patient states he typically ambulates with the use of a walker after his stroke. Last night he had sudden and worsening weakness of the right lower extremity unable to stand and had a fall to his right side. This occurred approximately midnight. Impacted on his shoulder and right hip. Denies head injury or loss of consciousness. Reports numbness and tingling and soreness in the right leg as well as significant weakness. Unable to stand which is out of his baseline. Denies changes in strength or sensation of the right upper extremity. Notes pain over the anterior shoulder and the right hip. Unable to ambulate this morning. Called over for transfer to ED. Denies anticoagulant use. Denies headache, visual changes, speech changes in speech, changes in coordination. PMH: Prior CVA, hypertension, hyperlipidemia, BPH, cirrhosis PSH: Reviewed Allergies: Reviewed Social Hx: Reviewed Allergies: Coded Allergies: No Known Allergies (Unverified , 11/16/14) COVID-19 Screening Contact w/high risk pt: No Experienced COVID-19 symptoms?: No COVID-19 Testing performed SENIOR DATA DEVELOPER: No Nursing Documentation-PMH Past Medical History: No History, Except For Hx Hypertension: Yes Hx Diabetes: Yes Hx Cancer: No Hx Gastrointestinal Problems: Yes - ascitis Hx Neurological Problems: Yes - spinal stenosis,anemia,liver cirrhosis Hx Cerebrovascular Accident: Yes - 2015; L weak Hx Weakness: Yes Review of Systems All Other Systems: negative except mentioned in HPI Physical Exam Vital Signs Date Time Temp Pulse Resp B/P (MAP) Pulse Ox O2 Delivery O2 Flow Rate FiO2 02/26/20 11:09 99.3 66 20 150/88 (108) 99 Room Air General: Awake and alert, no acute distress HEENT: NC/AT. EOMI. PERRLA. Visual hope are full. No nystagmus. Facial expressions are symmetrical. No facial droop. Cardiovascular: RRR. S1 and S2 normal. No murmur appreciated Resp: Normal work of breathing. No cough, wheezing or crackles appreciated Abdomen: Abdomen is soft, nondistended. Nontender Skin: Intact. No abrasions, laceration or rash over the exposed skin MSK: Normal tone and bulk. Moving all extremities. No obvious deformity. There is no drift in the upper or lower extremities bilaterally. Middle and ring finger right hand held in contracture. Tenderness palpation over the anterior lateral portion of the right shoulder though joint appears to be in appropriate position. No step-off or deformity. Limited abduction past 90 degrees. Pelvis is stable although there is tenderness over the lateral aspect on right side compression Neuro: Awake and alert. Mentating appropriately. Facial expression symmetrical. No dysarthria, no ataxia on [id number] testing. Unable to assess heel dick due to weakness in the right leg. Right leg fall straight to the bed with some resistance against gravity. Left leg strength 5/5. Sensation to light touch is intact over the upper and lower extremities. The patient has intact speech with good repetition, comprehension. Fund of knowledge is full. No aphasia, no neglect. NIH: 2 Medical Decision Making Diagnostic Impression: Primary Impression: Right leg weakness ER Course 59-year-old male with prior CVA presents for worsening weakness right lower extremity causing a fall from standing. No head injury. Last known normal was midnight. Patient is outside the window for acute intervention no concern for new stroke or worsening symptoms secondary to previous stroke. Unable to move the right lower extremity against gravity. Also concern for osseous injuries of the right shoulder right hip. Stat CT scan of the head ordered. Broad labs initiated. Fingerstick on arrival 88. EKG shows sinus rhythm without evidence of acute ischemia or ectopy. CT of the head shows microvessel disease but no acute bleed, mass or signs of acute infarct. X-rays of the right hip as well as the right shoulder unremarkable for acute bony trauma. MRI pending. No white count noted. Mild anemia. Chemistry within normal limits. Troponin negative. Patient has not yet provided urine. Admitted to his PMD, Dr. Munoz Laboratory Tests Test 02/26/20 11:35 02/26/20 11:41 White Blood Count 7.0 K/UL (4.8-10.8) Red Blood Count 4.35 M/UL (4.70-6.10) L Hemoglobin 11.4 G/DL (14.2-18.0) L Hematocrit 35.5 % (42.0-52.0) L Mean Corpuscular Volume 82 FL (80-99) Mean Corpuscular Hemoglobin 26.3 PG (27.0-31.0) L Mean Corpuscular Hemoglobin Concent 32.2 G/DL (32.0-36.0) Red Cell Distribution Width 15.2 % (11.6-14.8) H Platelet Count 168 K/UL (150-450) Mean Platelet Volume 6.8 FL (6.5-10.1) Neutrophils (%) (Auto) 58.5 % (45.0-75.0) Lymphocytes (%) (Auto) 26.9 % (20.0-45.0) Monocytes (%) (Auto) 8.5 % (1.0-10.0) Eosinophils (%) (Auto) 3.7 % (0.0-3.0) H Basophils (%) (Auto) 2.4 % (0.0-2.0) H Prothrombin Time 13.2 SEC (9.30-11.50) H Prothrombin Time INR 1.2 (0.9-1.1) H Activated Partial Thromboplast Time 30 SEC (23-33) Sodium Level 138 MMOL/L (136-145) Potassium Level 3.4 MMOL/L (3.5-5.1) L Chloride Level 104 MMOL/L (98-107) Carbon Dioxide Level 31 MMOL/L (21-32) Anion Gap 3 mmol/L (5-15) L Blood Urea Nitrogen 9 mg/dL (7-18) Creatinine 0.8 MG/DL (0.55-1.30) Estimated Glomerular Filtration Rate > 60 mL/min (>60) Glucose Level 85 MG/DL (74-106) Calcium Level 8.6 MG/DL (8.5-10.1) Total Bilirubin 0.5 MG/DL (0.2-1.0) Aspartate Amino Transferase (AST) 38 U/L (15-37) H Alanine Aminotransferase (ALT) 27 U/L (12-78) Alkaline Phosphatase 110 U/L (46-116) Troponin I 0.005 ng/mL (0.000-0.056) Total Protein 7.9 G/DL (6.4-8.2) Albumin 3.2 G/DL (3.4-5.0) L Globulin 4.7 g/dL Albumin/Globulin Ratio 0.7 (1.0-2.7) L Triglycerides Level 54 MG/DL (30-150) Cholesterol Level 128 MG/DL (< 200) LDL Cholesterol 67 mg/dL (<100) HDL Cholesterol 49 MG/DL (40-60) Cholesterol/HDL Ratio 2.6 (3.3-4.4) L POC Whole Blood Glucose 88 MG/DL (74-106) EKG Diagnostic Results Troponin ordered: Yes When was troponin ordered?: Feb 26, 2020 EKG Time: 11:38 Rate: bradycardiac Rhythm: NSR ST Segments: no acute changes Other Impression Sinus bradycardia, normal axis, normal intervals, QTC 420 ms, no ST segment changes. Rhythm Strip Diag. Results Rhythm Strip Time: 11:38 EP Interpretation: yes Rate: 58 Rhythm: NSR, no PVC's, no ectopy Other X-Ray Diagnostic Results Other X-Ray Diagnostic Results #1: X-Ray ordered: Right shoulder # of Views/Limited Vs Complete: Complete Indication: Pain EP Interpretation: Yes Interpretation: no dislocation, no soft tissue swelling, no fractures Impression: No acute disease Electronically Signed by: Electronically signed by Dr. Crow Rhodes MD Other X-Ray Diagnostic Results #2: X-Ray ordered: Right hip # of Views/Limited Vs Complete: 2 View Indication: Pain EP Interpretation: Yes Interpretation: no dislocation, no soft tissue swelling, no fractures Impression: No acute disease Electronically Signed by: Electronically signed by Dr. Crow Rhodes MD CT/MRI/US Diagnostic Results CT/MRI/US Diagnostic Results : Impression CT HEAD IMPRESSION: 1. No acute intracranial abnormality. 2. Chronic small vessel ischemic changes and cerebral volume loss. Dictated By: Christie Prince MD Electronically Signed By:Christie Prince MD Signed Date/Time 02/26/20 1251 Last Vital Signs Date Time Temp Pulse Resp B/P (MAP) Pulse Ox O2 Delivery O2 Flow Rate FiO2 02/26/20 11:09 99.3 66 20 150/88 (108) 99 Room Air Disposition: ADMITTED INPATIENT Condition: Serious Referrals: NON PHYSICIAN (PCP) Crow Rhodes MD Feb 26, 2020 11:35
[2020-02-26 12:03] LABS: BASOPHILS % (AUTO) 2.4 % (0.0-2.0); EOSINOPHILS % (AUTO) 3.7 % (0.0-3.0); HEMATOCRIT 35.5 % (42.0-52.0); HEMOGLOBIN 11.4 G/DL (14.2-18.0); LYMPHOCYTES % (AUTO) 26.9 % (20.0-45.0); MEAN CORPUSCULAR VOLUME 82 FL (80-99); MONOCYTES % (AUTO) 8.5 % (1.0-10.0); NEUTROPHILS % (AUTO) 58.5 % (45.0-75.0); PLATELET COUNT 168 K/UL (150-450); RED BLOOD COUNT 4.35 M/UL (4.70-6.10); RED CELL DISTRIBUTION WIDTH 15.2 % (11.6-14.8)
[2020-02-26 12:06] LABS: INR 1.2 (0.9-1.1)
[2020-02-26 12:13] LABS: ANION GAP 3 mmol/L (5-15); BLOOD UREA NITROGEN 9 mg/dL (7-18); CALCIUM 8.6 MG/DL (8.5-10.1); CARBON DIOXIDE 31 MMOL/L (21-32); CHLORIDE 104 MMOL/L (98-107); CREATININE 0.8 MG/DL (0.55-1.30); POTASSIUM 3.4 MMOL/L (3.5-5.1); SODIUM 138 MMOL/L (136-145)
[2020-02-26 12:18] LABS: ALANINE AMINOTRANSFERASE 27 U/L (12-78); ALBUMIN 3.2 G/DL (3.4-5.0); ALBUMIN/GLOBULIN RATIO 0.7 (1.0-2.7); ALKALINE PHOSPHATASE 110 U/L (46-116); ASPARTATE AMINO TRANSFERASE 38 U/L (15-37); BILIRUBIN,TOTAL 0.5 MG/DL (0.2-1.0); CHOLESTEROL 128 MG/DL (< 200); HDL CHOLESTEROL 49 MG/DL (40-60); TRIGLYCERIDES 54 MG/DL (30-150)
--- NOTE | 2020-02-26 12:26 | History and Physical ---
History of Present Illness General Date patient seen: Feb 26, 2020 Time patient seen: 12:30 Reason for Hospitalization: Generalized Weakness Present Illness HPI 59-year-old male history of hypertension, hyperlipidemia, prior CVA with residual right-sided weakness presents for evaluation of fall that occurred last night. The patient states he typically ambulates with the use of a walker after his stroke. He had sudden and worsening weakness of the right lower extremity unable to stand and had a fall to his right side. This occurred approximately midnight. He hit on his shoulder and right hip. Denies head injury or loss of consciousness. Reports numbness and tingling and soreness in the right leg as well as significant weakness. Unable to stand which is out of his baseline. Denies changes in strength or sensation of the right upper extremity. Notes pain over the anterior shoulder and the right hip. Unable to ambulate this morning. Called over for transfer to ED. Denies anticoagulant use. Denies headache, visual changes, speech changes in speech, changes in coordination. In the ER he was evaluated and CT head in underway. Admission is requested. Allergies: Coded Allergies: No Known Allergies (Unverified , 11/16/14) COVID-19 Screening Contact w/high risk pt: No Experienced COVID-19 symptoms?: No Medication History Scheduled Albuterol Sulfate (Ventolin Hfa), 1 PUFF INH EVERY 6 HOURS, (Reported) Amlodipine Besylate (Norvasc), 5 MG ORAL DAILY, (Reported) Aspirin* (Aspir 81*), 81 MG ORAL DAILY, (Reported) Furosemide* (Lasix*), 40 MG ORAL DAILY, (Reported) Tamsulosin HCl (Flomax), 0.4 MG ORAL DAILY, (Reported) Scheduled PRN Hydrocodone Bit/Acetaminophen 5-325* ([place] 5-325*), 1 TAB ORAL Q4H PRN for For Pain, (Reported) Miscellaneous Medications Carisoprodol (Carisoprodol), 350 MG ORAL, (Reported) Patient History Healthcare decision maker Resuscitation status Advanced Directive on File Review of Systems All Other Systems: negative except mentioned in HPI Physical Exam General Appearance: WD/WN Lines, tubes and drains: peripheral HEENT: normocephalic, atraumatic Neck: non-tender Respiratory/Chest: lungs clear Cardiovascular/Chest: normal rate Extremities: non-tender Skin Exam: normal pigmentation Neurologic: motor weakness, other - R leg with new weakness. Able to move laterally and NOT to defy gravity Last 24 Hour Vital Signs Date Time Temp Pulse Resp B/P (MAP) Pulse Ox O2 Delivery O2 Flow Rate FiO2 02/26/20 11:47 67 16 Room Air 02/26/20 11:09 99.3 66 20 150/88 (108) 99 Room Air Laboratory Tests Test 02/26/20 11:35 02/26/20 11:41 White Blood Count 7.0 K/UL (4.8-10.8) Red Blood Count 4.35 M/UL (4.70-6.10) L Hemoglobin 11.4 G/DL (14.2-18.0) L Hematocrit 35.5 % (42.0-52.0) L Mean Corpuscular Volume 82 FL (80-99) Mean Corpuscular Hemoglobin 26.3 PG (27.0-31.0) L Mean Corpuscular Hemoglobin Concent 32.2 G/DL (32.0-36.0) Red Cell Distribution Width 15.2 % (11.6-14.8) H Platelet Count 168 K/UL (150-450) Mean Platelet Volume 6.8 FL (6.5-10.1) Neutrophils (%) (Auto) 58.5 % (45.0-75.0) Lymphocytes (%) (Auto) 26.9 % (20.0-45.0) Monocytes (%) (Auto) 8.5 % (1.0-10.0) Eosinophils (%) (Auto) 3.7 % (0.0-3.0) H Basophils (%) (Auto) 2.4 % (0.0-2.0) H Prothrombin Time 13.2 SEC (9.30-11.50) H Prothromb Time International Ratio 1.2 (0.9-1.1) H Activated Partial Thromboplast Time 30 SEC (23-33) Sodium Level 138 MMOL/L (136-145) Potassium Level 3.4 MMOL/L (3.5-5.1) L Chloride Level 104 MMOL/L (98-107) Carbon Dioxide Level 31 MMOL/L (21-32) Anion Gap 3 mmol/L (5-15) L Blood Urea Nitrogen 9 mg/dL (7-18) Creatinine 0.8 MG/DL (0.55-1.30) Estimat Glomerular Filtration Rate > 60 mL/min (>60) Glucose Level 85 MG/DL (74-106) Calcium Level 8.6 MG/DL (8.5-10.1) Total Bilirubin 0.5 MG/DL (0.2-1.0) Aspartate Amino Transf (AST/SGOT) 38 U/L (15-37) H Alanine Aminotransferase (ALT/SGPT) 27 U/L (12-78) Alkaline Phosphatase 110 U/L (46-116) Troponin I Pending Total Protein 7.9 G/DL (6.4-8.2) Albumin 3.2 G/DL (3.4-5.0) L Globulin 4.7 g/dL Albumin/Globulin Ratio 0.7 (1.0-2.7) L Triglycerides Level 54 MG/DL (30-150) Cholesterol Level 128 MG/DL (< 200) LDL Cholesterol 67 mg/dL (<100) HDL Cholesterol 49 MG/DL (40-60) Cholesterol/HDL Ratio 2.6 (3.3-4.4) L POC Whole Blood Glucose 88 MG/DL (74-106) Height (Feet): 5 Height (Inches): 8.00 Weight (Pounds): 169 Assessment/Plan Status: not improved Status Narrative 59 y/o M with prior history of CVA and residual RUE weakness, HTN, cirrhosis admitted to the Hospital due to: # New R leg weakness Ddx new CVA vs muscular disorder vs medication side effect ( takes soma, norco at baseline ) CT and MRI brain needed Admit to Telemetry Lipid panel, HbA1c ASA will be continued Neurology consult PT OT evaluation to consider need for rehabilitation, SNF might be indicated. # Prior history of CVA Continue ASA, add Plavix in no hemorrhage is seen in CT head Neurology follow up # HTN Permissive HTN Monitor vital signs # Liver cirrhosis Monitor IV Peripheral Diet Cardiac DVT ppx with LMWH CODE Full Ashley Munoz MD Feb 26, 2020 12:26
[2020-02-26] MEDS ORDERED: LORazepam 1mg tab ORAL PRN (12:30)
[2020-02-26] MEDS ORDERED: NS w/KCl 20mEq 1000ml 1,000 ML IV ONE (12:30)
[2020-02-26] MEDS ORDERED: Morphine Sulfate 2mg/ml Inj(IV/IM USE ONLY) IVP PRN (12:30)
[2020-02-26] MEDS ORDERED: Nitroglycerin Subl 0.4mg tab SL PRN (12:30)
--- NOTE | 2020-02-26 12:52 | Diagnostic Imaging Report ---
EXAM: CT Head Without Intravenous Contrast CLINICAL HISTORY: WEAK TECHNIQUE: Axial computed tomography images of the head/brain without intravenous contrast. CTDI is 53.4 mGy and DLP is 1098.9 mGy-cm. One or more of the following dose reduction techniques were used: automated exposure control, adjustment of the mA and/or kV according to patient size, use of iterative reconstruction technique. COMPARISON: CT head on 11/16/2014. FINDINGS: Brain: No acute infarct or hemorrhage identified. No extra-axial fluid collection. No mass effect or midline shift. Scattered areas of hypoattenuation in the supratentorial white matter likely represent chronic small vessel ischemic changes. Ventricles and sulci: Prominence of the ventricles and sulci is likely secondary to cerebral volume loss. Cavum septum pellucidum. Bones: Normal. No bony lesion or acute fracture. Subcutaneous tissues: Probable sebaceous cyst in the left parietal soft tissues. Sinuses: Small polyp versus mucous retention cyst in the left posterior ethmoid air cell. Mastoid air cells: Normal. Orbits: Grossly unremarkable. Other: Atherosclerotic calcifications in the intracranial vasculature. IMPRESSION: 1. No acute intracranial abnormality. 2. Chronic small vessel ischemic changes and cerebral volume loss.
--- NOTE | 2020-02-26 13:04 | Diagnostic Imaging Report ---
EXAM: XR Right Shoulder Complete, 2 or More Views CLINICAL HISTORY: INJ TECHNIQUE: Two or more views of the right shoulder. COMPARISON: None FINDINGS: Bones/joints: No displaced fracture or dislocation identified. Mild degenerative changes of the right acromioclavicular joint. Degenerative changes of the visualized spine. Cervical fusion hardware partially visualized. Soft tissues: Normal. IMPRESSION: No displaced fracture or dislocation identified.
[2020-02-26 13:30] VITALS: BP 172/82
--- NOTE | 2020-02-26 13:42 | Diagnostic Imaging Report ---
EXAM: MR Head Without Intravenous Contrast CLINICAL HISTORY: WEAK TECHNIQUE: Magnetic resonance images of the head/brain without intravenous contrast in multiple planes. COMPARISON: CT head on 02/26/2020 FINDINGS: Brain: No restricted diffusion to suggest acute infarct. Chronic small vessel ischemic disease. Cavum septum pellucidum. Mild prominence of the ventricles and sulci is likely secondary to cerebral volume loss. Susceptibility artifact in the right cerebellar hemisphere and scattered small foci of susceptibility artifact in the cerebral hemispheres likely represent old blood products. Ventricles: See above. Bones/joints: Unremarkable. Sinuses: Small polyp versus mucous retention cyst partially visualized in the right maxillary sinus. No acute sinusitis. Mastoid air cells: Unremarkable as visualized. No mastoid effusion. Orbits: Unremarkable as visualized. IMPRESSION: No acute findings in the head/brain. Chronic small vessel ischemic disease and cerebral volume loss.
[2020-02-26] MEDS: HYDROcodone/Acetamin 5/325 tab ORAL PRN ×3 (14:09→23:28)
--- NOTE | 2020-02-26 14:35 | Diagnostic Imaging Report ---
EXAM: XR Right Hip With Pelvis When Performed, 2 or 3 Views CLINICAL HISTORY: INJ TECHNIQUE: Two or three views of the right hip with pelvis when performed. COMPARISON: None FINDINGS: Bones/joints: No displaced fracture or dislocation identified. Joint space is maintained. No bony lesion. Mild degenerative changes of the hips. Soft tissues: Normal. Other: Presumed phleboliths in the pelvis. IMPRESSION: No displaced fracture or dislocation identified.
[2020-02-26 15:30] VITALS: BP 155/84
[2020-02-26] MEDS: Enoxaparin 40mg Inj SUBQ SCH (15:39)
[2020-02-26] MEDS: Morphine Sulfate 4mg/ml Inj (IV USE ONLY) IVP PRN ×2 (15:40→19:47)
[2020-02-26 17:07] LABS: APPEARANCE,URINE CLEAR; BILIRUBIN, URINE NEGATIVE (NEGATIVE); GLUCOSE, URINE (UA) NEGATIVE (NEGATIVE); KETONES,URINE 1+ (NEGATIVE); LEUKOCYTE ESTERASE ,URINE NEGATIVE (NEGATIVE); NITRITE,URINE NEGATIVE (NEGATIVE); PH,URINE 6 (4.5-8.0); PROTEIN,URINE 1+ (NEGATIVE); UROBILINOGEN,URINE NORMAL MG/DL (0.0-1.0)
[2020-02-26 17:13] LABS: COLOR,URINE YELLOW
[2020-02-26 17:30] VITALS: BP 172/84
--- NOTE | 2020-02-26 17:53 | Diagnostic Imaging Report ---
EXAM: US Duplex Bilateral Extracranial Arteries CLINICAL HISTORY: CVA TECHNIQUE: Real-time duplex ultrasound scan of the extracranial arteries integrating B-mode two-dimensional vascular structure, Doppler spectral analysis and color flow Doppler imaging. COMPARISON: None FINDINGS: Right common carotid artery: Unremarkable. No occlusion or significant stenosis on color flow and spectral Doppler imaging. Right internal carotid artery: Peak systolic velocity in the right ICA measures 90.6 cm/s. No occlusion or significant stenosis on color flow and spectral Doppler imaging. Right external carotid artery: Unremarkable. No occlusion or significant stenosis on color flow and spectral Doppler imaging. Right vertebral artery: Right vertebral artery is not visualized on this exam. Right ICA/CCA ratio: Unremarkable. Within normal limits. Left common carotid artery: Unremarkable. No occlusion or significant stenosis on color flow and spectral Doppler imaging. Left internal carotid artery: Peak systolic velocity in the left ICA measures 67.5 cm/s. No occlusion or significant stenosis on color flow and spectral Doppler imaging. Left external carotid artery: Unremarkable. No occlusion or significant stenosis on color flow and spectral Doppler imaging. Left vertebral artery: Unremarkable. Antegrade flow. Left ICA/CCA ratio: Unremarkable. Within normal limits. Lymph nodes: Unremarkable. No lymphadenopathy. Other findings: Mild atherosclerotic changes. CAROTID STENOSIS REFERENCE USING SRU CRITERIA: Mild - <50% stenosis. ICA PSV is less than 125 cm/second and plaque or intimal thickening is visible. Moderate - 50-69% stenosis. ICA PSV is 125 to 230 cm/second and plaque is visible. Severe - 70-94% stenosis. ICA PSV is more than 230 cm/second and visible plaque with lumen narrowing is seen. Near occlusion - 95-99% stenosis. ICA PSV is variable and significant plaque with luminal narrowing is seen. Occluded - 100% stenosis. No flow identified. IMPRESSION: 1. No hemodynamically significant stenosis in either ICA. 2. Right vertebral artery is not visualized on this exam. 3. Normal antegrade flow in the left vertebral artery.
[2020-02-26 19:18] VITALS: BP 179/88
[2020-02-26 21:54] VITALS: BP 158/82
[2020-02-27 00:36] VITALS: BP 153/91
[2020-02-27] MEDS: Albuterol 90mcg Inhaler 8gm INH SCH ×3 (01:00→13:04)
[2020-02-27 02:00] VITALS: BP 171/95
[2020-02-27 04:00] VITALS: BP 154/90
[2020-02-27] MEDS: HYDROcodone/Acetamin 5/325 tab ORAL PRN ×2 (04:57→09:42)
[2020-02-27 08:00] VITALS: BP 159/95
[2020-02-27 08:29] LABS: BASOPHILS % (AUTO) 1.7 % (0.0-2.0); EOSINOPHILS % (AUTO) 4.2 % (0.0-3.0); HEMATOCRIT 33.6 % (42.0-52.0); HEMOGLOBIN 11.3 G/DL (14.2-18.0); LYMPHOCYTES % (AUTO) 22.3 % (20.0-45.0); MEAN CORPUSCULAR VOLUME 78 FL (80-99); MONOCYTES % (AUTO) 7.5 % (1.0-10.0); NEUTROPHILS % (AUTO) 64.4 % (45.0-75.0); PLATELET COUNT 143 K/UL (150-450); RED BLOOD COUNT 4.33 M/UL (4.70-6.10); RED CELL DISTRIBUTION WIDTH 15.9 % (11.6-14.8); WHITE BLOOD COUNT 6.2 K/UL (4.8-10.8)
[2020-02-27] MEDS ORDERED: Aspirin EC 81mg tab ORAL SCH (09:00)
[2020-02-27] MEDS ORDERED: Furosemide 40mg tab ORAL SCH (09:00)
[2020-02-27] MEDS ORDERED: Tamsulosin 0.4mg cap ORAL SCH (09:00)
[2020-02-27] MEDS: Docusate 100mg cap ORAL SCH (09:00)
[2020-02-27 09:08] LABS: ANION GAP 9 mmol/L (5-15); BLOOD UREA NITROGEN 8 mg/dL (7-18); CARBON DIOXIDE 26 MMOL/L (21-32); CHLORIDE 103 MMOL/L (98-107); CREATININE 0.6 MG/DL (0.55-1.30); POTASSIUM 3.5 MMOL/L (3.5-5.1); SODIUM 137 MMOL/L (136-145)
[2020-02-27 12:00] VITALS: BP 165/90
--- NOTE | 2020-02-27 12:59 | Consultation ---
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 The patient states he typically ambulates with the use of a walker since his stroke. He states that his "R leg gave up" and he tried to stop himself from falling but couldn't and fell to the ground, He decided to come to the ER on Thursday. He hit on his shoulder and right hip. Denies head injury or loss of consciousness. Reports numbness and weakness in RLE. Denies headache, admits to blurred vision, no speech changes in speech, changes in coordination. MRI Brain does not show acute cva. We were consulted for further evaluation. Past Medical History: as stated above Past Surgical history: denies Family History: non contributory Allergies: NKDA ROS A 14 point system done + in hpi Physical Exam VSS Genreal laying in bed no acute distress Neuro: Awake, AXO x4 PERRLA No nystagmus no facial droop normal speech pattern Hearing intact Motor no involuntary movements RUE weak Left UE normal strength RLE Weak, LLE normal strength Babinksi negative Sensation decreased in RLE LAB reviewed Meds: Reviewed Assessment and Plan 1. Fall --> likely due to RLE weakness --> Order Physical and Occupational therapy will need outpatient Therapy as well, pt states he has [facility] services already at home. 2. History of CVA in 2004 --> MRI Brain completed no evidence of acute cva --> follow up with outpatient neurologist 3. Neuropathy --> continue gabapentin 4. Hypertension 5. Liver Cirrhosis Thank you for allowing us to participate in patent's care, Dr. Javon Avina was face timed on video call to assess patient and discuss plan of care Discussed in detail with my supervising physician Dr. Javon Griffin who is in agreement with plan of care. Alia Morgan NP Feb 27, 2020 12:59
--- NOTE | 2020-02-27 13:35 | Discharge Instructions ---
Discharge Instructions Discharge Instructions Diet: 2 GM sodium (low sodium) Resume Normal Activity?: Yes For Surgical Patients May shower: Yes For Congestive Heart Failure Reminder Report to your physician any weight gain of 5 pounds or more in one week. Ashley Munoz MD Feb 27, 2020 13:35
--- NOTE | 2020-02-27 13:43 | Discharge Summary ---
Discharge Summary Hospital Course Date of Admission Feb 26, 2020 at 11:54 Date of Discharge 02/27/20 Admitting Diagnosis WEAKNESS HPI Ernst Buckner is a 59 year old male who was admitted on Feb 26, 2020 at 11:54 for Weakness Consultations neurology Procedures none Hospital Course 59 y/o M with prior history of CVA and residual RUE weakness, HTN, cirrhosis admitted to the Hospital due to: # New R leg weakness Ddx new CVA vs muscular disorder vs medication side effect ( takes soma, norco at baseline ) CT and MRI brain were done with NEGATIVE evidence of new stroke. ASA will be continued Neurology consult completed and no new recommendations at this time. PT evaluation noted that the patient was back to his baseline level of function. Ambulatory with help of his wheelchair which he pushes instead of FWW. patient was educated and instructed to use FWW to avoid a fall and possible harm. # Prior history of CVA Continue ASA, # Chronic pain syndrome Resume home medications. Disposition: Home with home health. Condition: Stable. Discharge Medications Continued Medications: Albuterol Sulfate (Ventolin Hfa) 18 Gm Hfa.aer.ad 1 PUFF INH EVERY 6 HOURS, #18 GM 0 Refills Amlodipine Besylate (Norvasc) 5 Mg Tablet 5 MG ORAL DAILY, TAB Aspirin* (Aspir 81*) 81 Mg Tablet.dr 81 MG ORAL DAILY, TAB Carisoprodol (Carisoprodol) 250 Mg Tablet 350 MG ORAL, TAB Furosemide* (Lasix*) 40 Mg Tablet 40 MG ORAL DAILY, TAB Hydrocodone Bit/Acetaminophen 5-325* (Howe 5-325*) 1 Each Tablet 1 TAB ORAL Q4H PRN for For Pain, TAB 0 Refills Tamsulosin HCl (Flomax) 0.4 Mg Cap.er.24h 0.4 MG ORAL DAILY, CAP Discharge Condition Upon Discharge: stable Discharge Vital Signs Last Vital Signs Date Time Temp Pulse Resp B/P (MAP) Pulse Ox O2 Delivery O2 Flow Rate FiO2 02/27/20 12:00 97.4 84 16 165/90 (115) 97 02/27/20 09:00 Room Air Discharge Disposition Patient was discharged to his home with home health PT follow up Discharge Diagnoses: (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
[2020-02-27 14:00] VITALS: BP 165/90
[2020-02-27] MEDS: Enoxaparin 40mg Inj SUBQ SCH (15:26)
== END 2020-02-27 16:15 | disposition home health service (06) | DRG 948 ==
LOC: EMR 11:13 → 2E 11:54 → EDBEDREQ 12:02
DX: R53.1 Weakness (principal); I69.351 Hemiplegia and hemiparesis following cerebral infarction affecting right dominant side; N13.8 Other obstructive and reflux uropathy; M62.9 Disorder of muscle, unspecified; T50.905A Adverse effect of unspecified drugs, medicaments and biological substances, initial encounter; I10 Essential (primary) hypertension; K74.60 Unspecified cirrhosis of liver; E78.5 Hyperlipidemia, unspecified; Z79.82 Long term (current) use of aspirin; N40.1 Benign prostatic hyperplasia with lower urinary tract symptoms
CPT/HCPCS: 36415; 70450; 70551; 80048; 80053; 80061; 81003; 82962; 83036; 83735; 84443; 84484; 85025; 85610; 85730; 93005; 93880; 93882; 96365; 96366; 99285